=== PATIENT | female | born 1990 | race Caucasian/White ===

== ENCOUNTER → 2017-03-17 | Outpatient (CLI) | payer MEDICAID ==
--- NOTE | 2017-03-17 15:29 | Diagnostic Imaging Report ---
PROCEDURE: CT urinary tract, rule out kidney stone. TECHNIQUE: Multiple contiguous axial images were obtained through the abdomen and pelvis without the use of intravenous contrast. INDICATION: Right flank pain. FINDINGS: The lung bases appear clear. The liver, the gallbladder, the spleen, the pancreas, and the adrenal glands appear unremarkable for an unenhanced exam. The kidneys demonstrate no hydronephrosis. There are bilateral nonobstructive stones up to 3 mm in the upper pole of the right kidney and a few 1-2 mm nonobstructive stones in the left kidney seen. There is a low-density lesion poorly identified on this unenhanced exam in the lower pole of the left kidney measuring roughly 8 mm. This could be related to a cystic lesion. This can be better evaluated with renal ultrasound. No hydronephrosis. No ureteric or bladder stones. The uterus is slightly enlarged. There is a tiny amount of free fluid seen in the pelvis. Suggestion of sutures near the base of the cecum is presumably related to prior appendectomy. Tiny fat-containing umbilical hernia is seen. The abdominal aorta is normal in caliber. No para-aortic significantly enlarged lymph node is seen. The osseous structures appear grossly unremarkable. IMPRESSION: 1. Bilateral nonobstructive kidney stones with no hydronephrosis. 2. Poorly defined hypodense lesion in the lower pole of the left kidney on this unenhanced exam. Further evaluation with renal ultrasound is recommended. 3. Tiny fat-containing umbilical hernia. Dictated by: Dictated on workstation # [id number]
== END ==
LOC: RAD 14:35
PROVIDERS: ATTEND Nurse Practitioner Family
DX: N20.0 Calculus of kidney (principal)
CPT/HCPCS: 74176

== ENCOUNTER 2017-03-21 23:55 | Emergency (ER) | payer MEDICAID ==
[~2017-03-21] VITALS: Ht 167.6 cm; Wt 82.6 kg
--- OUTSIDE RECORDS SUMMARY | 2017-03-22 00:04 | XMS REPORT ---
Author Author NOREEN MANCIA [facility] Address [address] [place] [address] Care Team Providers Care Field Handyman Name Role Phone NOREEN MANCIA Unavailable PROBLEMS Unknown Problems ALLERGIES No Known Allergies SOCIAL HISTORY No smoking Hx information available PLAN OF CARE VITAL SIGNS MEDICATIONS No Known Medications RESULTS No Results PROCEDURES No Known procedures IMMUNIZATIONS No Known Immunizations
--- OUTSIDE RECORDS SUMMARY | 2017-03-22 00:04 | XMS REPORT ---
Author Author TALI MORGAN Organization [employer] Address Unknown Phone Unavailable Care Team Providers Care Family Law Legal Assistant Name Role Phone TALI MORGAN CP Unavailable Allergies, Adverse Reactions, Alerts Substance Reaction Event Type Amoxicillin hives Drug Allergy Problems Problem Type Condition Code Onset Dates Condition Status Assessment High ankle sprain of left lower extremity, initial encounter S93.432A Active Assessment Left ankle injury, initial encounter S99.912A Active Medications No Known Medications Procedures Procedure Coding System Code Date Office Visit, Est Pt., Level 3 CPT-4 63919 Jan 15, 2016 X-RAY EXAM OF ANKLE CPT-4 18048 Jan 15, 2016 Vital Signs Date/Time: Jan 15, 2016 Cardiac Monitoring Heart Rate 100 bpm Weight 170 lbs Height 66 in BMI 27.44 Index Blood Pressure Diastolic 90 mmHg Blood Pressure Systolic 132 mmHg Results No Known Results Summary Purpose [employer] Submission
[2017-03-22 00:17] LABS: BILIRUBIN,URINE NEGATIVE (NEGATIVE); KETONES,URINE NEGATIVE (NEGATIVE); LEUKOCYTE ESTERASE ,URINE NEGATIVE (NEGATIVE); NITRITE,URINE NEGATIVE (NEGATIVE); PH,URINE 6 (5-9); PROTEIN,URINE NEGATIVE (NEGATIVE); UROBILINOGEN,URINE NORMAL (NORMAL)
--- NOTE | 2017-03-22 00:25 | ED Back Pain ---
General Chief Complaint: Back Problems Stated Complaint: RT SIDE PAIN,POSS KIDNEY STONE Nursing Triage Note: Pt c/o right side flank pain, dx with kidney stones and "spot" on kidney on Fri. Nursing Sepsis Screen: No Definite Risk Source of Information: Patient Exam Limitations: No Limitations History of Present Illness Time Seen by Provider: 00:14 Initial Comments Patient resists ER by private conveyance with a chief complaint that for approximately one week now she's been experiencing some pain in her right flank and she went to [facility] where she was sent up to [facility] for a [facility] scan. The CT scan was done Friday, 5 days ago and the report was read out to her the next day saying she had kidney stones on both sides but she's only ever had pain on her right side. She's never had kidney stones passed before. She been drinking water and using 400 mg ibuprofen to 3 times a day with very modest pain relief. She has no dysuria, discharge, fevers, rash, nausea, vomiting. She says the pain is worse when she is moving or for about an hour or 2 after she eats. She's had her appendix out in the past. Allergies and Home Medications Allergies Coded Allergies: amoxicillin (Verified Allergy, Mild, 03/22/17) Constitutional: No chills, No fever, No malaise EENTM: No ear pain, No eye pain Respiratory: No cough, No short of breath Cardiovascular: No chest pain, No edema Gastrointestinal: abdominal pain (right flank), No constipation, No diarrhea, No nausea, No vomiting Genitourinary: No discharge, No dysuria : No LMP: Mar 19, 2017 Control/STD Prophylaxis: None Musculoskeletal: see HPI, gout, joint pain Skin: No pruritus, No rash Psychiatric/Neurological: Denies Headache, Denies Numbness, Denies Paresthesia Past Uhujqmj-Qqgzdz-Tcekhn Hx Patient Social History Alcohol Use: Denies Use Recreational Drug Use: No Smoking Status: Never a Smoker 2nd Hand Smoke Exposure: No Recent Foreign Travel: No Contact w/Someone Who Travel: No Recent Infectious Disease Expo: No Recent Hopitalizations: No Physical Abuse: No Sexual Abuse: No Mistreated: No Fear: No Immunizations Up To Date Tetanus Booster (TDap): Unknown Seasonal Allergies Seasonal Allergies: No Surgeries History of Surgeries: Yes Surgeries: Appendectomy, Section Respiratory History of Respiratory Disorde: No Cardiovascular History of Cardiac Disorders: No Neurological History of Neurological Disord: No Genitourinary History of Genitourinary Disor: No Gastrointestinal History of Gastrointestinal Di: No Musculoskeletal History of Musculoskeletal Dis: No Endocrine History of Endocrine Disorders: No HEENT History of HEENT Disorders: No Cancer History of Cancer: No Psychosocial History of Psychiatric Problem: No Suicide Risk Score: 1 Integumentary History of Skin or Integumenta: No Blood Transfusions History of Blood Disorders: No Adverse Reaction to a Blood Tr: No Physical Exam Vital Signs Vital Sign - Last 12Hours 03/22/17 00:00 Temp 98.0 Pulse 102 Resp 18 B/P (MAP) 181/125 (143) Pulse Ox 99 O2 Delivery Room Air Capillary Refill : Less Than 3 Seconds General Appearance: WD/WN, Mild Distress HEENT: PERRL/EOMI, Pharynx Normal Neck: Full Range of Motion, Non Tender, Supple Cardiovascular: Regular Rate, Rhythm, No Edema, No Gallop Respiratory: Chest Non Tender, Lungs Clear, Normal Breath Sounds Peripheral Pulses: 2+ Radial Pulses (R), 2+ Radial Pulses (L) Gastrointestinal: Normal Bowel Sounds, Non Tender, Soft Back: Normal Inspection, No Vertebral Tenderness, CVA Tenderness (R) Extremity: Normal Capillary Refill, Normal Inspection, No Pedal Edema Neurologic/Psychiatric: Alert, Oriented x3, Normal Mood/Affect Skin: Normal Color, Warm/Dry Progress/Results/Core Measures Results/Orders Lab Results Laboratory Tests Test 03/22/17 00:05 Range/Units Urine Color YELLOW Urine Clarity CLEAR Urine pH 6 5-9 Urine Specific [place] 1.020 1.016-1.022 Urine Protein NEGATIVE NEGATIVE Urine Glucose (UA) NEGATIVE NEGATIVE Urine Ketones NEGATIVE NEGATIVE Urine Nitrite NEGATIVE NEGATIVE Urine Bilirubin NEGATIVE NEGATIVE Urine Urobilinogen NORMAL NORMAL MG/DL Urine Leukocyte Esterase NEGATIVE NEGATIVE Urine RBC (Auto) 4+ H NEGATIVE Urine RBC 0-2 /HPF Urine WBC NONE /HPF Urine Squamous Epithelial Cells 5-10 /HPF Urine Crystals NONE /LPF Urine Bacteria NEGATIVE /HPF Urine Casts NONE /LPF Urine Mucus NEGATIVE /LPF Urine Culture Indicated NO Urine Test NEGATIVE NEGATIVE My Orders Orders - LOBO NERI Ua Culture If Indicated (03/22/17 00:00) Ketorolac Injection (Toradol Injection) (03/22/17 00:30) Saline Lock/Iv-Start (03/22/17 00:26) Ct Abd/Pelvis Wo(Kidney Stone) (03/22/17 00:26) Hcg,Qualitative Urine (03/22/17 00:27) Medications Given in ED Current Medications Medications Dose Ordered Sig/Vance Route Start Time Stop Time Status Last Admin Dose Admin Ketorolac Tromethamine 10 mg ONCE ONCE IVP 03/22/17 00:30 03/22/17 00:31 DC 03/22/17 01:05 10 MG Vital Signs/I&O Vital Sign - Last 12Hours 03/22/17 00:00 Temp 98.0 Pulse 102 Resp 18 B/P (MAP) 181/125 (143) Pulse Ox 99 O2 Delivery Room Air Blood Pressure Mean: 143 Progress Note : Time: 00:26 Progress Note 5 days ago the patient had nonobstructing kidney stones in the kidneys however she still having significant pain so we'll give her some Toradol and repeat a CT scan to see if these don't moved into the ureter. Diagnostic Imaging Diagonstic Imaging: CT (03/17/17) Plain Films/CT/US/NM/MRI: abdomen, pelvis Comments NAME: EMIRKELL D [facility] REC#: [id number] PHYSICIAN: TALI MORGAN APRN CC: TALI MORGAN APRN; AMI SERRANO MD Page 2 of 2 RADIOLOGY REPORT VIA [facility]. [place], [place] CC: TALI MORGAN APRN; AMI SERRANO MD Page 1 of 2 RADIOLOGY REPORT NAME: EMIRKELL D [facility] REC#: [id number] PT STATUS: REG CLI : 1990 PHYSICIAN: TALI MORGAN APRN ADMIT DATE: 03/17/17/RAD Signed Date of Exam: 03/17/17 CT ABD/PELVIS WO(KIDNEY STONE) PROCEDURE: CT urinary tract, rule out kidney stone. TECHNIQUE: Multiple contiguous axial images were obtained through the abdomen and pelvis without the use of intravenous contrast. INDICATION: Right flank pain. FINDINGS: The lung bases appear clear. The liver, the gallbladder, the spleen, the pancreas, and the adrenal glands appear unremarkable for an unenhanced exam. The kidneys demonstrate no hydronephrosis. There are bilateral nonobstructive stones up to 3 mm in the upper pole of the right kidney and a few 1-2 mm nonobstructive stones in the left kidney seen. There is a low-density lesion poorly identified on this unenhanced exam in the lower pole of the left kidney measuring roughly 8 mm. This could be related to a cystic lesion. This can be better evaluated with renal ultrasound. No hydronephrosis. No ureteric or bladder stones. The uterus is slightly enlarged. There is a tiny amount of free fluid seen in the pelvis. Suggestion of sutures near the base of the cecum is presumably related to prior appendectomy. Tiny fat-containing umbilical hernia is seen. The abdominal aorta is normal in caliber. No para-aortic significantly enlarged lymph node is seen. The osseous structures appear grossly unremarkable. IMPRESSION: 1. Bilateral nonobstructive kidney stones with no hydronephrosis. 2. Poorly defined hypodense lesion in the lower pole of the left kidney on this unenhanced exam. Further evaluation with renal ultrasound is recommended. 3. Tiny fat-containing umbilical hernia. Dictated by: Dictated on workstation # [id number] Dict: 03/17/17 1514 Trans: 03/17/17 1728 Interpreted by: AMI SERRANO MD Electronically signed by: AMI SERRANO MD 03/17/17 1728 Reviewed: Reviewed/Discussed Diagonstic Imaging: CT Plain Films/CT/US/NM/MRI: abdomen, pelvis Comments Stat read: Distal right ureter not well seen. It to 7 cm right pelvic calcifications present on prior exam are favored to represent platelets. Punctate bilateral nonobstructing nephrolithiasis. No hydronephrosis. No other acute findings. Reviewed: Reviewed [place] Hawk Study, Reviewed by Me Departure Impression Impression: Primary Impression: Renal lithiasis Disposition: HOME, SELF-CARE Condition: Improved Departure-Patient Inst. Decision time for Depature: 01:52 Referrals: [facility] (PCP/Family) Primary Care Physician Patient Instructions: Kidney Stones (DC) Add. Discharge Instructions: Drink lots of water. If you did recently passed kidney stones is not unusual to have some residual pain or blood in the urine for 2-3 days afterwards. Heat wraps, Tylenol 1000 g every 8 hours and Motrin 800 mg every 8 hours as needed for pain. If this does not work you may use the hydrocodone for next day or 2. Please plan to follow-up to primary care physician to get the ultrasound of your kidney set up within the next couple weeks. All discharge instructions reviewed with patient and/or family. Voiced understanding. Scripts Hydrocodone/Acetaminophen (Hydrocodon -Acetaminophen 5-325) 1 Each Tablet 1 EACH PO Q6H Y for BREAKTHROUGH PAIN, #8 TAB 0 Refills Prov: LOBO NERI 03/22/17 Copy Copies To 1: NOREEN MANCIA DO LOBO NERI Mar 22, 2017 00:25
[2017-03-22] MEDS ORDERED: KETOROLAC 30 MG/ML VIAL IVP ONE (00:30)
[2017-03-22] MEDS ORDERED: HYDR-3812 PO (01:53)
[2017-03-22 01:58] VITALS: BP 142/70
--- NOTE | 2017-03-22 07:21 | Diagnostic Imaging Report ---
PROCEDURE: CT urinary tract, rule out kidney stone. TECHNIQUE: Multiple contiguous axial images were obtained through the abdomen and pelvis without the use of intravenous contrast. INDICATION: Right-sided flank pain. History of kidney stones The liver, gallbladder and bile ducts are normal. The spleen, pancreas and adrenals are normal. There are three 1-2 mm nonobstructing stones in the left kidney. There is one 2 mm nonobstructing stone in the right kidney. There is no hydronephrosis seen on either side. The ureters are not dilated. There are calcifications in the pelvis consistent with phleboliths and are stable compared to the 03/17/17 study. Bladder is normal. There is no pelvic mass. There is no acute bony abnormality. IMPRESSION: There are bilateral nonobstructing renal stones present with no acute abnormality seen and no significant change from 03/17/2017. Dictated by: Dictated on workstation # [id number]
== END 2017-03-22 01:55 | disposition home or self-care (01) ==
LOC: EDUNIT# 23:55 → ER 03-22
DX: N20.0 Calculus of kidney (principal); Z90.49 Acquired absence of other specified parts of digestive tract; Z87.59 Personal history of other complications of pregnancy, childbirth and the puerperium
CPT/HCPCS: 74176; 81000; 84703

== ENCOUNTER → 2017-03-26 | Outpatient (CLI) | payer MEDICAID ==
[~2017-03-26] MED LIST: HYDR-3812 PO
--- NOTE | 2017-03-26 11:37 | Diagnostic Imaging Report ---
EXAMINATION: Bilateral renal ultrasound. INDICATION: Left renal lesion. FINDINGS: The right kidney is 12.3, and the left kidney is 12.2 CM in length. No hydronephrosis or focal lesion seen. 1 cm simple appearing cyst in the left kidney seen. No solid mass is identified. The urinary bladder appears unremarkable. IMPRESSION: No hydronephrosis. Dictated by: Dictated on workstation # [id number]
== END ==
LOC: RAD 10:54
PROVIDERS: ATTEND Nurse Practitioner Family
DX: N28.89 Other specified disorders of kidney and ureter (principal)
CPT/HCPCS: 76770

== ENCOUNTER 2017-07-05 15:38 | Emergency (ER) | payer MEDICAID ==
[~2017-07-05] VITALS: Ht 167.6 cm; Wt 81.6 kg
[~2017-07-05 15:38] MED LIST changes: +ACHD5005 PO; -HYDR-3812 PO
[2017-07-05 16:17] LABS: BILIRUBIN,URINE NEGATIVE (NEGATIVE); CLARITY,URINE VERY CLOUDY; COLOR,URINE YELLOW; GLUCOSE, URINE (UA) NEGATIVE (NEGATIVE); KETONES,URINE NEGATIVE (NEGATIVE); LEUKOCYTE ESTERASE ,URINE NEGATIVE (NEGATIVE); NITRITE,URINE NEGATIVE (NEGATIVE); PH,URINE 8 (5-9); PROTEIN,URINE NEGATIVE (NEGATIVE); UROBILINOGEN,URINE NORMAL (NORMAL)
[2017-07-05 16:17] LABS: BASOPHILS % (AUTO) 1 % (0-10); EOSINOPHILS # (AUTO) 0.2 10^3/uL (0.0-0.3); EOSINOPHILS % (AUTO) 3 % (0-10); HEMATOCRIT 39 % (35-52); HEMOGLOBIN 13.8 G/DL (11.5-16.0); LYMPHOCYTES # (AUTO) 2.3 X 10^3 (1.0-4.0); LYMPHOCYTES % (AUTO) 36 % (12-44); MEAN CORPUSCULAR HEMOGLOBIN 30 PG (25-34); MEAN CORPUSCULAR HGB CONC 36 G/DL (32-36); MEAN CORPUSCULAR VOLUME 83 FL (80-99); MEAN PLATELET VOLUME 10.7 FL (7.4-10.4); MONOCYTES # (AUTO) 0.6 X 10^3 (0.0-1.0); MONOCYTES % (AUTO) 9 % (0-12); NEUTROPHILS # (AUTO) 3.3 X 10^3 (1.8-7.8); NEUTROPHILS % (AUTO) 51 % (42-75); PLATELET COUNT 326 10^3/uL (130-400); RED BLOOD COUNT 4.63 10^6/uL (4.35-5.85); RED CELL DISTRIBUTION WIDTH 13.7 % (10.0-14.5); WHITE BLOOD COUNT 6.5 10^3/uL (4.3-11.0)
[2017-07-05 16:24] LABS: BACTERIA,URINE TRACE /HPF; RBC,URINE 0-2 /HPF; SQUAMOUS EPITHELIAL CELL,UR RARE /HPF
[2017-07-05 16:25] LABS: AMORPHOUS SEDIMENT,UR LARGE AMOR PHOSPHATE /LPF
[2017-07-05 16:30] LABS: ALANINE AMINOTRANSFERASE 30 U/L (0-55); ALBUMIN 4.5 GM/DL (3.2-4.5); ALKALINE PHOSPHATASE 125 U/L (40-136); BILIRUBIN,TOTAL 0.4 MG/DL (0.1-1.0); BUN/CREATININE RATIO 14; CALCIUM 9.3 MG/DL (8.5-10.1); CARBON DIOXIDE 23 MMOL/L (21-32); CHLORIDE 107 MMOL/L (98-107); CREATININE SERUM 0.65 MG/DL (0.60-1.30); GFR ESTIMATED > 60; GLUCOSE 104 MG/DL (70-105); POTASSIUM 3.6 MMOL/L (3.6-5.0); SODIUM 138 MMOL/L (135-145); TOTAL PROTEIN 7.3 GM/DL (6.4-8.2)
[2017-07-05] MEDS ORDERED: KETOROLAC 60 MG/2 ML VIAL IM STA (16:59)
[2017-07-05] MEDS ORDERED: MECLIZINE 25 MG (ANTIVERT) TAB PO ONE (17:00)
[2017-07-05] MEDS ORDERED: KETOROLAC 30 MG/ML VIAL IVP STA (17:27)
--- NOTE | 2017-07-05 17:48 | Diagnostic Imaging Report ---
PROCEDURE: US gallbladder. TECHNIQUE: Multiple real-time grayscale images were obtained over the right upper quadrant in various projections. INDICATION: Right-sided abdominal pain. COMPARISON: None. FINDINGS: Normal echogenicity of the liver with no focal mass or cyst. No intrahepatic biliary ductal dilatation. Normal appearing gallbladder. Gallbladder wall measures 0.2 cm in thickness. No pericholecystic fluid. Negative sonographic Bell sign. The common bile duct measures 0.4 cm. The pancreas is not documented. The right kidney measures 12.8 cm. No right renal mass, cyst or hydronephrosis. No free fluid in the visualized abdomen. IMPRESSION: Normal right upper quadrant ultrasound. Dictated by: Dictated on workstation # [id number]
--- NOTE | 2017-07-05 18:06 | ED Abdominal Pain ---
General Chief Complaint: Abdominal/GI Problems Stated Complaint: PAIN IN RIGHT SIDE/CRAMPS Nursing Triage Note: PT REPORTS LOWER PELVIC CRAMPING AND VAGINAL BLEEDING THAT IT WORSE THAN HER USUAL MENSTRAUL CYCLE. PT REPORTS SHE LAST TOOK 400 MG IBUPROFEN AT 1200 TODAY. Sepsis Screen: No Definite Risk History of Present Illness Date Seen by Provider: Jul 05, 2017 Time Seen by Provider: 16:00 Initial Comments 27-year-old female reports for right upper quadrant pain and vaginal bleeding with cramps. She also complains of vertigo. She reports that this is the sixth day of her menstrual cycle, it has been a heavier cycle been normal for her. She denies any history of STDs. She does report over the last 2-3 hours the bleeding has decreased to a scant amount. Timing/Duration: 4-5 Days Severity/Quality: Mild Location: RUQ, Suprapubic Radiation: No Radiation Activities at Onset: None Modifying Factors: Improves With Resting Associated Symptoms: Denies Symptoms Allergies and Home Medications Allergies Coded Allergies: amoxicillin (Verified Allergy, Mild, 03/22/17) Home Medications Hydrocodone Bit/Acetaminophen 1 Each Tablet, 1 EACH PO Q6H PRN for BREAKTHROUGH PAIN Prescribed by: LOBO NERI on 03/22/17 0153 Patient Home Medication List Home Medication List Reviewed: Yes Review of Systems Constitutional: no symptoms reported, see HPI Gastrointestinal: See HPI, Abdominal Pain, Nausea Genitourinary: No Symptoms Reported, See HPI All Other Systems Reviewed Negative Unless Noted: Yes Past Uxghepl-Qohtzp-Lmourh Hx Patient Social History Alcohol Use: Rarely Uses Recreational Drug Use: No Smoking Status: Never a Smoker 2nd Hand Smoke Exposure: No Recent Foreign Travel: No Contact w/Someone Who Travel: No Recent Infectious Disease Expo: No Recent Hopitalizations: No Physical Abuse: No Sexual Abuse: No Mistreated: No Fear: No Immunizations Up To Date Tetanus Booster (TDap): Unknown Seasonal Allergies Seasonal Allergies: No Surgeries History of Surgeries: Yes Surgeries: Appendectomy, Section, Tubal Ligation Respiratory History of Respiratory Disorde: No Cardiovascular History of Cardiac Disorders: No Neurological History of Neurological Disord: No Reproductive System : No Genitourinary History of Genitourinary Disor: No Gastrointestinal History of Gastrointestinal Di: No Musculoskeletal History of Musculoskeletal Dis: No Endocrine History of Endocrine Disorders: No HEENT History of HEENT Disorders: No Cancer History of Cancer: No Psychosocial History of Psychiatric Problem: No Suicide Risk Score: 0 Integumentary History of Skin or Integumenta: No Blood Transfusions History of Blood Disorders: No Adverse Reaction to a Blood Tr: No Reviewed Nursing Assessment Reviewed/Agree w Nursing PMH: Yes Physical Exam Vital Signs VS - Last 72 Hours, by Label 07/05/17 07/05/17 16:01 18:35 Temp 97.8 Pulse 88 84 Resp 18 18 B/P (MAP) 154/107 (123) 148/98 Pulse Ox 97 99 O2 Delivery Room Air Capillary Refill : Less Than 3 Seconds General Appearance: WD/WN, no apparent distress HEENT: PERRL/EOMI, normal ENT inspection, TMs normal, pharynx normal, other ( Mucosa pink and moist) Neck: non-tender, full range of motion, supple, normal inspection Respiratory: chest non-tender, lungs clear, normal breath sounds Cardiovascular: normal peripheral pulses, regular rate, rhythm, no edema Gastrointestinal: normal bowel sounds, soft, No distended, No guarding, No rebound, tenderness (Right upper quadrant, positive Bell's sign.), No hernia, No mass Extremities: normal range of motion, non-tender, normal inspection, normal capillary refill Back: normal inspection, no CVA tenderness, no vertebral tenderness Neurologic/Psychiatric: no motor/sensory deficits, alert, normal mood/affect, oriented x 3 Progress/Results/Core Measures Results/Orders Lab Results Laboratory Tests Test 07/05/17 15:57 07/05/17 16:10 Range/Units White Blood Count 6.5 4.3-11.0 10^3/uL Red Blood Count 4.63 4.35-5.85 10^6/uL Hemoglobin 13.8 11.5-16.0 G/DL Hematocrit 39 35-52 % Mean Corpuscular Volume 83 80-99 FL Mean Corpuscular Hemoglobin 30 25-34 PG Mean Corpuscular Hemoglobin Concent 36 32-36 G/DL Red Cell Distribution Width 13.7 10.0-14.5 % Platelet Count 326 130-400 10^3/uL Mean Platelet Volume 10.7 H 7.4-10.4 FL Neutrophils (%) (Auto) 51 42-75 % Lymphocytes (%) (Auto) 36 12-44 % Monocytes (%) (Auto) 9 0-12 % Eosinophils (%) (Auto) 3 0-10 % Basophils (%) (Auto) 1 0-10 % Neutrophils # (Auto) 3.3 1.8-7.8 X 10^3 Lymphocytes # (Auto) 2.3 1.0-4.0 X 10^3 Monocytes # (Auto) 0.6 0.0-1.0 X 10^3 Eosinophils # (Auto) 0.2 0.0-0.3 10^3/uL Basophils # (Auto) 0.0 0.0-0.1 10^3/uL Sodium Level 138 135-145 MMOL/L Potassium Level 3.6 3.6-5.0 MMOL/L Chloride Level 107 98-107 MMOL/L Carbon Dioxide Level 23 21-32 MMOL/L Anion Gap 8 5-14 MMOL/L Blood Urea Nitrogen 9 7-18 MG/DL Creatinine 0.65 0.60-1.30 MG/DL Estimat Glomerular Filtration Rate > 60 BUN/Creatinine Ratio 14 Glucose Level 104 70-105 MG/DL Calcium Level 9.3 8.5-10.1 MG/DL Total Bilirubin 0.4 0.1-1.0 MG/DL Aspartate Amino Transf (AST/SGOT) 26 5-34 U/L Alanine Aminotransferase (ALT/SGPT) 30 0-55 U/L Alkaline Phosphatase 125 40-136 U/L Total Protein 7.3 6.4-8.2 GM/DL Albumin 4.5 3.2-4.5 GM/DL Urine Color YELLOW Urine Clarity VERY CLOUDY H Urine pH 8 5-9 Urine Specific [place] 1.010 L 1.016-1.022 Urine Protein NEGATIVE NEGATIVE Urine Glucose (UA) NEGATIVE NEGATIVE Urine Ketones NEGATIVE NEGATIVE Urine Nitrite NEGATIVE NEGATIVE Urine Bilirubin NEGATIVE NEGATIVE Urine Urobilinogen NORMAL NORMAL MG/DL Urine Leukocyte Esterase NEGATIVE NEGATIVE Urine RBC (Auto) 1+ H NEGATIVE Urine RBC 0-2 /HPF Urine WBC NONE /HPF Urine Squamous Epithelial Cells RARE /HPF Urine Crystals NONE /LPF Urine Amorphous Sediment LARGE SHERI PHOSPHATE H /LPF Urine Bacteria TRACE /HPF Urine Casts NONE /LPF Urine Mucus NEGATIVE /LPF Urine Culture Indicated NO My Orders Orders - CATRACHITO FINK Cbc With Automated Diff (07/05/17 16:10) Comprehensive Metabolic Panel (07/05/17 16:10) Ua Culture If Indicated (07/05/17 16:10) Urine Bedside (07/05/17 16:10) Us Gallbladder [id number] (07/05/17 16:55) Ketorolac Injection (Toradol Injection) (07/05/17 16:59) Meclizine Tablet (Antivert Tablet) (07/05/17 17:00) Ketorolac Injection (Toradol Injection) (07/05/17 17:27) Medications Given in ED Vital Signs/I&O Vital Sign - Last 12Hours 07/05/17 07/05/17 16:01 18:35 Temp 97.8 Pulse 88 84 Resp 18 18 B/P (MAP) 154/107 (123) 148/98 Pulse Ox 97 99 O2 Delivery Room Air Blood Pressure Mean: 123 Point of Care Testing Urine -Bedside: Negative Progress Note : Time: 16:00 Progress Note Initial evaluation completed, recommended labs and Toradol 30 mg IV and meclizine 25 mg by mouth. 1645 we'll obtain ultrasound of the gallbladder. 1715 results of lab and ultrasound discussed with the patient. 1730 patient reports pain has improved. Discharge planning and return precautions reviewed with patient, all questions answered. Diagnostic Imaging Diagonstic Imaging: Ultrasound Plain Films/CT/US/NM/MRI: abdomen Comments NAME: [facility]LL [facility] REC#: [id number] PT STATUS: REG ER : 1990 PHYSICIAN: CATRACHITO FINK ADMIT DATE: 07/05/17/ER Draft Date of Exam:07/05/17 US GALLBLADDER [id number] PROCEDURE: US gallbladder. TECHNIQUE: Multiple real-time grayscale images were obtained over the right upper quadrant in various projections. INDICATION: Right-sided abdominal pain. COMPARISON: None. FINDINGS: Normal echogenicity of the liver with no focal mass or cyst. No intrahepatic biliary ductal dilatation. Normal appearing gallbladder. Gallbladder wall measures 0.2 cm in thickness. No pericholecystic fluid. Negative sonographic Bell sign. The common bile duct measures 0.4 cm. The pancreas is not documented. The right kidney measures 12.8 cm. No right renal mass, cyst or hydronephrosis. No free fluid in the visualized abdomen. IMPRESSION: Normal right upper quadrant ultrasound. Dictated on workstation # [id number] Dict: 07/05/17 1742 Trans: 07/05/17 1748 [facility] [id number] Interpreted by: FINA WHITE MD Electronically signed by: Departure Impression Impression: Primary Impression: Menorrhagia Qualified Codes: N92.0 - Excessive and frequent menstruation with regular cycle Disposition: HOME, SELF-CARE Condition: Stable Departure-Patient Inst. Decision time for Depature: 17:15 Referrals: NOREEN MANCIA DO (PCP) Primary Care Physician TALI MORGAN APRN (Family) Primary Care Physician Patient Instructions: Heavy Periods (DC), Menstrual Cramps (DC) Add. Discharge Instructions: Increase water intake. Alternate ibuprofen 600 mg and Tylenol 650 mg every 4 hours for pain or fever. Follow-up with Tali Casey APRN in 2-3 days if symptoms are not improving or worsen. Return to emergency department if symptoms worsen, fever greater than 101, or new problems. All discharge instructions reviewed with patient and/or family. Voiced understanding. Work/School Note: Work Release Form Date Seen in the Emergency Department: Jul 05, 2017 Return to Work: Jul 07, 2017 Restrictions: No Restrictions Copy Copies To 1: ADRIANNA LIU MD, AMY ARNP Jul 05, 2017 18:05
[2017-07-05 18:35] VITALS: BP 148/98
--- OUTSIDE RECORDS SUMMARY | 2017-07-06 04:39 | XMS REPORT ---
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 253205209 Problem Missed period N92.6 Active 92296089 Problem Left renal mass N28.89 Active 135767061 Problem Renal calculus, bilateral N20.0 Active 47322727 ALLERGIES Substance Reaction Event Type Date Status Amoxicillin hives Drug Allergy Oct, Active ENCOUNTERS Encounter Location Date Diagnosis [facility] [id number] [place] [address] 98220- 4600 Apr, [facility] [id number] [place] [address] 47027- 0000 Apr, [facility] [id number] [place] [address] 05013- 5906 Mar, [facility] [id number] [place] [address] 20785- 8425 Mar, 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 [facility] [id number] [place] [address] 69512- 8663 Mar, [facility] [id number] [place] [address] 49442 [address]3970 Mar, Abdominal pain R10.9 ; Missed period N92.6 and Right flank pain R10.9 [facility] [id number] [place] [address] 95517 -1451 Oct, Cellulitis of neck L03.221 [facility] [id number] [place] [address] 10 Jan, 2016 Left ankle injury, initial encounter S99.912A and High ankle sprain of left lower extremity, initial encounter S93.432A [facility] [address] [facility] [id number] [place] [address] 28 Dec, 2015 Unprotected sexual intercourse Z72.51 [facility] [address] [facility] [id number] [address] Dec, IMMUNIZATIONS No Known Immunizations SOCIAL HISTORY Never Assessed REASON FOR VISIT bump under chin started about 3 days ago JStrasserRN PLAN OF CARE Activity Details Follow Up prn Reason: VITAL SIGNS Height 66 in 2016-10-10 Weight 177.2 lbs 2016-10-10 Temperature 97.9 degrees Fahrenheit 2016-10-10 Heart Rate 78 bpm 2016-10-10 Respiratory Rate 20 2016-10-10 BMI 28.60 kg/m2 2016-10-10 Blood pressure systolic 146 mmHg 2016-10-10 Blood pressure diastolic 98 mmHg 2016-10-10 MEDICATIONS Medication Instructions Dosage Frequency Start Date End Date Duration Status Clindamycin HCl 300 MG Orally 2 times a day 1 capsule 12h Oct, Oct, 10 days Active RESULTS No Results PROCEDURES No Known procedures INSTRUCTIONS MEDICATIONS ADMINISTERED No Known Medications MEDICAL (GENERAL) HISTORY Type Description Date Surgical History section [id number] Surgical History tubal ligation 09/2015 Hospitalization History Post C-Sections
== END 2017-07-05 18:34 | disposition home or self-care (01) ==
LOC: EDUNIT# 15:38 → ER 15:39
DX: N92.0 Excessive and frequent menstruation with regular cycle (principal); Z87.59 Personal history of other complications of pregnancy, childbirth and the puerperium; Z90.49 Acquired absence of other specified parts of digestive tract; Z98.51 Tubal ligation status; Z88.1 Allergy status to other antibiotic agents
CPT/HCPCS: 36415; 76705; 80053; 81000; 84703; 85025; 96374

== ENCOUNTER → 2018-01-28 | Outpatient (CLI) | payer MEDICAID ==
--- NOTE | 2018-01-28 20:28 | Diagnostic Imaging Report ---
INDICATION: Palpable lump in the right breast. FINDINGS: Sonographic interrogation of the area of palpable abnormality in the right breast. This corresponds to 8 o'clock location 4 cm from the nipple. There is a macrolobulated hypoechoic solid-appearing mass at this location measuring 2.5 x 2.1 x 2.4 cm. Minimal internal vascularity is present. No shadowing is seen. Two additional hypoechoic nodules are also present in the right breast. The nodule at the 11 o'clock location 3 cm from the nipple measures 1.6 x 0.6 x 1.5 cm. The nodule at the 12 o'clock location 2 cm from the nipple measures 1.1 x 0.8 x 1.1 cm. Both of these also appear solid. 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 No other masses are seen. The right axilla is unremarkable. IMPRESSION: BI-RADS 4 Multiple solid masses in the right breast, as described, largest corresponds to the palpable abnormality at the 8 o'clock location 4 cm from the nipple. Features are most suggestive of fibroadenomas; however after discussion with the patient, it was decided to undergo ultrasound-guided core biopsy of the dominant mass at the 8 o'clock location to assure benignity. ACR BI-RADS Category 4: Suspicious abnormality. Dictated by: Dictated on workstation # [id number]
== END ==
LOC: RAD 08:10
PROVIDERS: ATTEND Nurse Practitioner Family
DX: N63.13 Unspecified lump in the right breast, lower outer quadrant (principal); N63.11 Unspecified lump in the right breast, upper outer quadrant
CPT/HCPCS: 76641

== ENCOUNTER → 2018-02-09 | Outpatient (CLI) | payer MEDICAID ==
[~2018-02-09] VITALS: Ht 165.1 cm; Wt 86.2 kg
[~2018-02-09] MED LIST changes: +LIDOCAINE 1% INJ 20 ML 20 ML VIAL INJ ONE
--- NOTE | 2018-02-09 18:17 | Diagnostic Imaging Report ---
INDICATION: Right breast mass. PROCEDURE: The patient presents for ultrasound guided biopsy. DESCRIPTION OF PROCEDURE: The patient was brought to the procedure room and placed on the table in supine position. Ultrasound imaging over the right breast was performed to evaluate an appropriate entry site. The right breast was prepped and draped in the usual sterile fashion. A small amount of 1% lidocaine was utilized for local anesthesia. A 14-gauge needle was advanced into the lobulated hypoechoic mass at the 8 o'clock location of the right breast 5 cm from the nipple. A total of 4 core biopsies were obtained. The needle was withdrawn. A localizing clip was then deployed. Hemostasis was obtained using manual compression. IMPRESSION: Successful ultrasound-guided core biopsy of the lobulated mass at the 8 o'clock location of the right breast, 5 cm from the nipple. Pathology results are currently pending. Dictated by: Dictated on workstation # [id number]
== END ==
LOC: RAD 11:50
PROVIDERS: ATTEND Nurse Practitioner Family
DX: D24.1 Benign neoplasm of right breast (principal); N63.13 Unspecified lump in the right breast, lower outer quadrant
CPT/HCPCS: 19083; 88305

== ENCOUNTER 2018-03-02 12:51 | Emergency (ER) | payer MEDICAID ==
[~2018-03-02] VITALS: Ht 167.6 cm; Wt 86.2 kg
[~2018-03-02 12:51] MED LIST changes: -LIDOCAINE 1% INJ 20 ML 20 ML VIAL INJ ONE
--- OUTSIDE RECORDS SUMMARY | 2018-03-02 12:55 | XMS REPORT ---
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 465809082 Problem Missed period N92.6 Active 82053645 Problem Left renal mass N28.89 Active 718391718 Problem Renal calculus, bilateral N20.0 Active 75721579 ALLERGIES Substance Reaction Event Type Date Status Amoxicillin hives Drug Allergy Jan, Active ENCOUNTERS Encounter Location Date Diagnosis [place] [id number] [place] [address] 69759- 6819 Jan, Breast lump in lower inner quadrant N63.0 [place] [id number] [place] [address] 89382- 9778 Jan, Well woman exam with routine gynecological exam Z01.419 ; Screening for STD (sexually transmitted disease) Z11.3 ; Breast lump in lower inner quadrant N63.0 and Brittney vaginitis B37.3 [place] [address] [place] [address] 45997- 1993 Apr, [place] [id number] [place] [address] 68525- 7155 Apr, [place] [id number] [place] [address] 53395- 8604 Mar, [place] [id number] [place] [address] 91211- 7011 Mar, 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 [place] [id number] [place] [address] 930010- 5212 12 Mar, 2017 [facility] [address] [id number], [place] [address] 11 Mar, 2017 Abdominal pain R10.9 ; Missed period N92.6 and Right flank pain R10.9 [facility] [id number], [place] [address] 06 Oct, 2016 Cellulitis of neck L03.221 [facility] [address] [place] [address] 60543 -9868 10 Jan, 2016 Left ankle injury, initial encounter S99.912A and High ankle sprain of left lower extremity, initial encounter S93.432A [place] [address], [place] [address] 28 Dec, 2015 Unprotected sexual intercourse Z72.51 [place] [address] [place] [address] 02341- 7114 21 Dec, 2015 IMMUNIZATIONS No Known Immunizations SOCIAL HISTORY Never Assessed REASON FOR VISIT Well Woman Exam Shante Whitlock MA PLAN OF CARE Activity Details Follow Up 1 Year or pending results Reason:WWE Pending Test GC/CHLAM PROBE (STATE) Pending Test PAP REFLEX TO HPV IF ASCUS VITAL SIGNS Height 66 in 2018-01-06 Weight 187.5 lbs 2018-01-06 Temperature 97.3 degrees Fahrenheit 2018-01-06 Heart Rate 80 bpm 2018-01-06 Respiratory Rate 20 2018-01-06 BMI 30.26 kg/m2 2018-01-06 Blood pressure systolic 128 mmHg 2018-01-06 Blood pressure diastolic 74 mmHg 2018-01-06 MEDICATIONS Medication Instructions Dosage Frequency Start Date End Date Duration Status Diflucan 150 MG Orally one time 1 tablet Jan, 3 Jan, 2018 1 dose Active Midol Active RESULTS No Results PROCEDURES Procedure Date Ordered Result Body Site SPECIMEN HANDLING Jan 06, 2018 Bacterial Vaginosis In House Jan 06, 2018 No Charge Jan 06, 2018 LAB NOT BILLED BY [facility] Jan 06, 2018 INSTRUCTIONS MEDICATIONS ADMINISTERED No Known Medications MEDICAL (GENERAL) HISTORY Type Description Date Surgical History section Surgical History tubal ligation 09/2015 Hospitalization History Post C-Sections
--- OUTSIDE RECORDS SUMMARY | 2018-03-02 12:55 | XMS REPORT ---
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 329728202 Problem Missed period N92.6 Active 59101197 Problem Left renal mass N28.89 Active 002285709 Problem Renal calculus, bilateral N20.0 Active 17245709 ALLERGIES No Information ENCOUNTERS Encounter Location Date Diagnosis [facility] [id number] [place] [address] 65450- 7410 Apr, [facility] [id number] [place] [address] 16723- 3530 Apr, [facility] [address] 58104- [address]237 Mar, [facility] [id number] [place] [address] 00288- 1753 Mar, 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 [facility] [id number] [place] [address] 61001- 4934 Mar, [facility] [id number] [place] [address] 47940 -7132 11 Mar, 2017 Abdominal pain R10.9 ; Missed period N92.6 and Right flank pain R10.9 [facility] [id number] [place] [address] 36452 -4752 06 Oct, 2016 Cellulitis of neck L03.221 [facility] [id number] [place] [address] 54046 -5078 Jan, Left ankle injury, initial encounter S99.912A and High ankle sprain of left lower extremity, initial encounter S93.432A [facility] [address] [facility] [id number] [address] Dec, Unprotected sexual intercourse Z72.51 [facility] [address] [facility] [id number] [place] [address] Dec, IMMUNIZATIONS No Known Immunizations SOCIAL HISTORY Never Assessed REASON FOR VISIT Retro PA for CT Scan And & Pelvis (Stone Protocol) PLAN OF CARE VITAL SIGNS MEDICATIONS Unknown Medications RESULTS No Results PROCEDURES No Known procedures INSTRUCTIONS MEDICATIONS ADMINISTERED No Known Medications MEDICAL (GENERAL) HISTORY Type Description Date Surgical History section [id number] Surgical History tubal ligation 09/2015 Hospitalization History Post C-Sections
--- OUTSIDE RECORDS SUMMARY | 2018-03-02 12:55 | XMS REPORT ---
Author Author JIM VALDES Organization 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 689760508 Problem Missed period N92.6 Active 58734146 Problem Left renal mass N28.89 Active 429043882 Problem Renal calculus, bilateral N20.0 Active 36206288 ALLERGIES No Information ENCOUNTERS Encounter Location Date Diagnosis [place] [id number] [place] [address] 16634- 5287 Jan, Breast lump in lower inner quadrant N63.0 [place] [id number] [place] [address] 48660- 4736 Jan, Breast lump in lower inner quadrant N63.0 [place] [id number] [place] [address] 49447- 9342 Jan, Well woman exam with routine gynecological exam Z01.419 ; Screening for STD (sexually transmitted disease) Z11.3 ; Breast lump in lower inner quadrant N63.0 and Brittney vaginitis B37.3 [place] [id number] [place] [address] 16768- 6890 Apr, [place] [id number] [place] [address] 62613- 5679 Apr, [place] [id number] [place] [address] 45975- 5022 Mar, [place] [id number] [place] [address] 95522- 1426 Mar, 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 [address] [address] Mar, [facility] [place] [id number] [place] [address] 85452 -0913 Mar, Abdominal pain R10.9 ; Missed period N92.6 and Right flank pain R10.9 [facility] [id number] [place] [address] 75528 -7044 Oct, Cellulitis of neck L03.221 [facility] [place] [place] [address] 77399 -3422 10 Jan, 2016 Left ankle injury, initial encounter S99.912A and High ankle sprain of left lower extremity, initial encounter S93.432A [place] [address] [address] Dec, Unprotected sexual intercourse Z72.51 [place] [id number] [place] [address] 74987- 6778 Dec, IMMUNIZATIONS No Known Immunizations SOCIAL HISTORY Never Assessed REASON FOR VISIT Biopsy order PLAN OF CARE VITAL SIGNS MEDICATIONS Unknown Medications RESULTS No Results PROCEDURES No Known procedures INSTRUCTIONS MEDICATIONS ADMINISTERED No Known Medications MEDICAL (GENERAL) HISTORY Type Description Date Surgical History section [id number] Surgical History tubal ligation 09/2015 Hospitalization History Post C-Sections
--- OUTSIDE RECORDS SUMMARY | 2018-03-02 12:55 | XMS REPORT ---
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 915416145 Problem Missed period N92.6 Active 06860465 Problem Left renal mass N28.89 Active 861862710 Problem Renal calculus, bilateral N20.0 Active 48686482 ALLERGIES No Information ENCOUNTERS Encounter Location Date Diagnosis [place] [id number] [place] [address] 29489- 3372 Jan, Breast lump in lower inner quadrant N63.0 [place] [address] 0[address]40- 7102 Jan, Well woman exam with routine gynecological exam Z01.419 ; Screening for STD (sexually transmitted disease) Z11.3 ; Breast lump in lower inner quadrant N63.0 and Brittney vaginitis B37.3 [place] [id number] [place] [address] 25279- 3070 Apr, [place] [id number] [place] [address] 05231- 2957 Apr, [place] [id number] [place] [address] 89730- 0811 Mar, [place] [address] 57780- 4221 Mar, 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 [place] [id number] [place] [address] 87817- 6024 Mar, [facility] [address], [place] [address] 11 Mar, 2017 Abdominal pain R10.9 ; Missed period N92.6 and Right flank pain R10.9 [facility]ALK IN [facility] [address] [place] [address] 93606 -2169 06 Oct, 2016 Cellulitis of neck L03.221 [facility] [place] [id number] [place] [address] 70384 -3418 10 Jan, 2016 Left ankle injury, initial encounter S99.912A and High ankle sprain of left lower extremity, initial encounter S93.432A [place] [address] [place] [address] 90872- 3451 28 Dec, 2015 Unprotected sexual intercourse Z72.51 [place] [id number] [place] [address] 81754- 2941 21 Dec, 2015 IMMUNIZATIONS No Known Immunizations SOCIAL HISTORY Never Assessed REASON FOR VISIT Requests return call PLAN OF CARE Activity Details Pending Test Mammogram Dx, Right VITAL SIGNS MEDICATIONS Unknown Medications RESULTS No Results PROCEDURES No Known procedures INSTRUCTIONS MEDICATIONS ADMINISTERED No Known Medications MEDICAL (GENERAL) HISTORY Type Description Date Surgical History section [id number] Surgical History tubal ligation 09/2015 Hospitalization History Post C-Sections
--- OUTSIDE RECORDS SUMMARY | 2018-03-02 12:56 | XMS REPORT ---
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 405338122 Problem Missed period N92.6 Active 73343478 Problem Left renal mass N28.89 Active 964200885 Problem Renal calculus, bilateral N20.0 Active 13425000 ALLERGIES No Information ENCOUNTERS Encounter Location Date Diagnosis [facility] [id number] [place] [address] 69907- 3477 Apr, [facility] [id number] [place] [address] 66612- 5176 Apr, [facility] [address] 97964- 8624 Mar, [facility] [id number] [place] [address] 25254- 9000 Mar, 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 [id number] [place] [address] 28392 -0584 06 Oct, 2016 Cellulitis of neck L03.221 [facility] [address] [place] [address] 58517 -3221 Jan, Left ankle injury, initial encounter S99.912A and High ankle sprain of left lower extremity, initial encounter S93.432A [facility] [address] [facility] [id number] [place] [address]68 Dec, Unprotected sexual intercourse Z72.51 [facility] [address] [facility] [id number] [place] [address]3 Dec, IMMUNIZATIONS No Known Immunizations SOCIAL HISTORY Never Assessed REASON FOR VISIT Retro PA CT abd & pelvis PLAN OF CARE VITAL SIGNS MEDICATIONS Unknown Medications RESULTS No Results PROCEDURES No Known procedures INSTRUCTIONS MEDICATIONS ADMINISTERED No Known Medications MEDICAL (GENERAL) HISTORY Type Description Date Surgical History section 5395-0828 Surgical History tubal ligation 09/2015 Hospitalization History Post C-Sections
--- OUTSIDE RECORDS SUMMARY | 2018-03-02 12:56 | XMS REPORT ---
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 367799755 Problem Missed period N92.6 Active 76063764 Problem Left renal mass N28.89 Active 519967724 Problem Renal calculus, bilateral N20.0 Active 59532390 ALLERGIES No Information ENCOUNTERS Encounter Location Date Diagnosis [facility] [id number] [place] [address] 41316- 1194 Apr, [facility] [id number] [place] [address] 75925- 5436 Apr, [facility] [address] 33033- 9377 Mar, [facility] [id number] [place] [address] 35973- 6781 Mar, 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 [facility] [id number] [place] [address] 87802- 1047 Mar, [facility] [id number] [place] [address] 72804 -9839 11 Mar, 2017 Abdominal pain R10.9 ; Missed period N92.6 and Right flank pain R10.9 [facility] [id number] [place] [address] 24151 -5138 06 Oct, 2016 Cellulitis of neck L03.221 [facility] [id number] [place] [address] 49123 -9751 Jan, Left ankle injury, initial encounter S99.912A and High ankle sprain of left lower extremity, initial encounter S93.432A [facility] [address] [facility] [id number] [place] [address]- 1683 Dec, Unprotected sexual intercourse Z72.51 [facility] [address] [facility] [id number] [place] [address]- 0985 Dec, IMMUNIZATIONS No Known Immunizations SOCIAL HISTORY Never Assessed REASON FOR VISIT PA Renal US PLAN OF CARE VITAL SIGNS MEDICATIONS Unknown Medications RESULTS No Results PROCEDURES No Known procedures INSTRUCTIONS MEDICATIONS ADMINISTERED No Known Medications MEDICAL (GENERAL) HISTORY Type Description Date Surgical History section 5567-4396 Surgical History tubal ligation 09/2015 Hospitalization History Post C-Sections
--- OUTSIDE RECORDS SUMMARY | 2018-03-02 12:56 | XMS REPORT ---
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 920538496 Problem Missed period N92.6 Active 33858287 Problem Left renal mass N28.89 Active 659721913 Problem Renal calculus, bilateral N20.0 Active 59696905 ALLERGIES No Information ENCOUNTERS Encounter Location Date Diagnosis [facility] [id number] [place] [phone] Apr, [facility] [id number] [place] [phone] 9669 Apr, [facility] [address] [address] Mar, [facility] [id number] [place] [phone][phone] Mar, 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 [facility] [id number] [place] [phone] Mar, [facility] [id number] [place] [phone] 11 Mar, 2017 Abdominal pain R10.9 ; Missed period N92.6 and Right flank pain R10.9 [facility] [id number] [place] [phone] 06 Oct, 2016 Cellulitis of neck L03.221 [facility] [id number] [place] [phone] Jan, Left ankle injury, initial encounter S99.912A and High ankle sprain of left lower extremity, initial encounter S93.432A [facility] [address] [facility] [id number] [place] [address] Dec, Unprotected sexual intercourse Z72.51 [facility] [address] [facility] [id number] [place] [address] Dec, IMMUNIZATIONS No Known Immunizations SOCIAL HISTORY Never Assessed REASON FOR VISIT Test results PLAN OF CARE VITAL SIGNS MEDICATIONS Unknown Medications RESULTS Name Result Date Reference Range Ultrasound : Renal, COMPLETE 2017-03-26 PROCEDURES No Known procedures INSTRUCTIONS MEDICATIONS ADMINISTERED No Known Medications MEDICAL (GENERAL) HISTORY Type Description Date Surgical History section Surgical History tubal ligation 09/2015 Hospitalization History Post C-Sections
--- OUTSIDE RECORDS SUMMARY | 2018-03-02 12:56 | XMS REPORT ---
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 112681752 Problem Missed period N92.6 Active 12727814 Problem Left renal mass N28.89 Active 248879838 Problem Renal calculus, bilateral N20.0 Active 66561222 ALLERGIES Substance Reaction Event Type Date Status Amoxicillin hives Drug Allergy Mar, Active ENCOUNTERS Encounter Location Date Diagnosis [facility] [id number] [place] [phone] Apr, [facility] [id number] [place] [phone][phone] Apr, [facility] [id number] [place] [address] 6[address]66[phone] Mar, [facility] [id number] [place] [address] 59274- [address] Mar, 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 [facility] [id number] [place] [address]60[address] Mar, [facility] [id number] [place] [phone] Mar, Abdominal pain R10.9 ; Missed period N92.6 and Right flank pain R10.9 [facility] [id number] [place] [phone] [phone] Oct, Cellulitis of neck L03.221 [facility] [id number] [place] [address] 10 Jan, 2016 Left ankle injury, initial encounter S99.912A and High ankle sprain of left lower extremity, initial encounter S93.432A [facility] [address] [facility] [id number] [place] [address] 28 Dec, 2015 Unprotected sexual intercourse Z72.51 [facility] [address] [facility] [id number], [place] [address] 21 Dec, 2015 IMMUNIZATIONS No Known Immunizations SOCIAL HISTORY Never Assessed REASON FOR VISIT right flank pain with RLQ pain. pt does have a history of kidney stones. pt is also 2 weeks late on her menstural cycle. last period was 02/07-02/09 2017...short cycle. last BM was yesterday and normal for her. [email or web address] PLAN OF CARE Activity Details Follow Up prn Reason: VITAL SIGNS Height 66 in 2017-03-17 Weight 182.2 lbs 2017-03-17 Temperature 98.6 degrees Fahrenheit 2017-03-17 Heart Rate 82 bpm 2017-03-17 Respiratory Rate 20 2017-03-17 BMI 29.40 kg/m2 2017-03-17 Blood pressure systolic 130 mmHg 2017-03-17 Blood pressure diastolic 84 mmHg 2017-03-17 MEDICATIONS Medication Instructions Dosage Frequency Start Date End Date Duration Status Midol Active RESULTS Name Result Date Reference Range TEST, URINE (IN HOUSE) 2017-03-17 RESULTS negative Lot # [id number] Control + Exp date 05 07 2018 UA LONG DIP (IN HOUSE) 2017-03-17 Lot # [id number] Exp date 2018 02 30 Clarity cloudy Color yellow Odor none GLU negative JENAE negative KET negative SG 1.020 BLO negative pH 8.5 Protein negative URO 1.0 NIT negative MARIELLE trace Lot # [id number] Exp date July 2017 CT Scan : Abd & Pelvis w/o contrast (STONE PROTOCOL) 2017-03-17 PROCEDURES Procedure Date Ordered Result Body Site URINALYSIS, AUTO, W/O SCOPE Mar 17, 2017 URINE TEST Mar 17, 2017 INSTRUCTIONS MEDICATIONS ADMINISTERED No Known Medications MEDICAL (GENERAL) HISTORY Type Description Date Surgical History section Surgical History tubal ligation 09/2015 Hospitalization History Post C-Sections
--- OUTSIDE RECORDS SUMMARY | 2018-03-02 12:56 | XMS REPORT ---
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 763758590 Problem Missed period N92.6 Active 33612173 Problem Left renal mass N28.89 Active 452321375 Problem Renal calculus, bilateral N20.0 Active 33951122 ALLERGIES No Information ENCOUNTERS Encounter Location Date Diagnosis [facility] [id number] [place] [phone] Apr, [facility] [id number] [place] [address]- [address] Apr, [facility] [address] [address] Mar, [facility] [id number] [place] [address] Mar, 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 [facility] [id number] [place] [address]- [address] Mar, [facility] [id number] [place] [address]31 [phone] 11 Mar, 2017 Abdominal pain R10.9 ; Missed period N92.6 and Right flank pain R10.9 [facility] [id number] [place] [address] 06 Oct, 2016 Cellulitis of neck L03.221 [facility] [id number] [place] [address] Jan, Left ankle injury, initial encounter S99.912A and High ankle sprain of left lower extremity, initial encounter S93.432A [facility] [id number] [place] [address] Dec, Unprotected sexual intercourse Z72.51 [facility] [address] [facility] [id number] [place] [address] Dec, IMMUNIZATIONS No Known Immunizations SOCIAL HISTORY Never Assessed REASON FOR VISIT failure to sign release PLAN OF CARE VITAL SIGNS MEDICATIONS Unknown Medications RESULTS No Results PROCEDURES No Known procedures INSTRUCTIONS MEDICATIONS ADMINISTERED No Known Medications MEDICAL (GENERAL) HISTORY Type Description Date Surgical History section [id number] Surgical History tubal ligation 09/2015 Hospitalization History Post C-Sections
[2018-03-02] MEDS ORDERED: KETOROLAC 30 MG/ML VIAL IVP STA (13:48)
[2018-03-02] MEDS ORDERED: NS IV 1000 ML 1,000 ML IV STA (13:48)
[2018-03-02 14:00] LABS: BASOPHILS % (AUTO) 0 % (0-10); EOSINOPHILS # (AUTO) 0.2 10^3/uL (0.0-0.3); EOSINOPHILS % (AUTO) 3 % (0-10); HEMATOCRIT 39 % (35-52); HEMOGLOBIN 13.5 G/DL (11.5-16.0); LYMPHOCYTES % (AUTO) 30 % (12-44); MEAN CORPUSCULAR HEMOGLOBIN 28 PG (25-34); MEAN CORPUSCULAR HGB CONC 34 G/DL (32-36); MEAN CORPUSCULAR VOLUME 83 FL (80-99); MEAN PLATELET VOLUME 10.1 FL (7.4-10.4); MONOCYTES # (AUTO) 0.5 X 10^3 (0.0-1.0); MONOCYTES % (AUTO) 8 % (0-12); NEUTROPHILS # (AUTO) 3.9 X 10^3 (1.8-7.8); NEUTROPHILS % (AUTO) 58 % (42-75); PLATELET COUNT 369 10^3/uL (130-400); RED BLOOD COUNT 4.75 10^6/uL (4.35-5.85); RED CELL DISTRIBUTION WIDTH 14.4 % (10.0-14.5); WHITE BLOOD COUNT 6.7 10^3/uL (4.3-11.0)
[2018-03-02] MEDS ORDERED: ONDANSETRON 4 MG/2 ML (SDV) Z0FRAN IVP ONE ×2 (14:00→17:30)
[2018-03-02 14:02] LABS: BILIRUBIN,URINE NEGATIVE (NEGATIVE); CLARITY,URINE CLEAR; COLOR,URINE YELLOW; GLUCOSE, URINE (UA) NEGATIVE (NEGATIVE); KETONES,URINE NEGATIVE (NEGATIVE); LEUKOCYTE ESTERASE ,URINE 1+ (NEGATIVE); NITRITE,URINE NEGATIVE (NEGATIVE); PH,URINE 7 (5-9); PROTEIN,URINE 2+ (NEGATIVE); UROBILINOGEN,URINE NORMAL (NORMAL)
--- NOTE | 2018-03-02 14:10 | ED General ---
General Chief Complaint: Head/Cervical Problems Stated Complaint: HEADACHE,URINATING BLOOD Nursing Triage Note: PT BEGAN TO EXPERIENCE A SORE THROAT 2-3 DAYS AGO, BEGAN URINATING BLOOD YESTERDAY, AND DEVELOPED A SEVERE HEADACHE AT MIDNIGHT LAST NIGHT. Nursing Sepsis Screen: No Definite Risk Source of Information: Patient Exam Limitations: No Limitations History of Present Illness Date Seen by Provider: Mar 02, 2018 Time Seen by Provider: 13:36 Initial Comments Here with report of headache for the last couple days that is moderate to severe and frontal. Reports that it is a very bad headache and not responding to Tylenol and ibuprofen. Also reports that she's had sore throat symptoms that is a little better now but still is moderately congested which may be going to the pain. Does have some mild photophobia. Denies recent injury. Reports she's not had recent fevers. Headache worsened last night although was bad yesterday as well and she was thinking about coming to the emergency department then. She was at work and decided to finish her shift. Overnight it also persisted and then ultimately she decided to come for evaluation this afternoon. Does have nausea with the pain as well as some vomiting. Urine was noted to have red color to it and she reports passing blood in her urine. She is not sure why she is doing that although she was concerned about kidney stones. Timing/Duration: 2-3 Days Severity: Moderate, Severe Associated Systoms: No Chest Pain, No Fever/Chills; Headaches, Nausea/Vomiting ; No Shortness of Air, No Weakness Allergies and Home Medications Allergies Coded Allergies: amoxicillin (Verified Allergy, Mild, 03/02/18) Home Medications Hydrocodone Bit/Acetaminophen 1 Each Tablet, 1 EACH PO Q6H PRN for BREAKTHROUGH PAIN Prescribed by: LOBO NERI on 03/22/17 0153 Patient Home Medication List Home Medication List Reviewed: Yes Review of Systems Review of Systems Constitutional: see HPI; No chills, No fever EENTM: nose congestion, nose pain, throat pain Respiratory: No cough, No short of breath Cardiovascular: no symptoms reported Gastrointestinal: see HPI Genitourinary: see HPI; No dysuria; hematuria : No Musculoskeletal: no symptoms reported Skin: no symptoms reported Psychiatric/Neurological: See HPI, Headache; Denies Weakness Hematologic/Lymphatic: No Symptoms Reported All Other Systems Reviewed Negative Unless Noted: Yes Past Rxhdkms-Xuiumy-Hgeqic Hx Past Med/Social Hx: Reviewed Nursing Past Med/Soc Hx Patient Social History Alcohol Use: Occasionally Uses Alcohol Beverage of Choice: Beer Recreational Drug Use: No Smoking Status: Never a Smoker 2nd Hand Smoke Exposure: No Recent Foreign Travel: No Contact w/Someone Who Travel: No Recent Infectious Disease Expo: No Recent Hopitalizations: No Immunizations Up To Date Tetanus Booster (TDap): Unknown Seasonal Allergies Seasonal Allergies: No Past Medical History Surgeries: Yes Appendectomy, Section, Tubal Ligation Respiratory: No Cardiac: No Neurological: 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 0.0oz. 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-XII Norm as Tested Skin: Normal Color, Warm/Dry Progress/Results/Core Measures Suspected Sepsis Recent Fever Within 48 Hours: No Infection Criteria Present: None New/Unexplained Altered Menta: No Sepsis Screen: No Definite Risk SIRS Temperature:98.5 Pulse: 109 Respiratory Rate: 20 Laboratory Tests 03/02/18 13:54: White Blood Count 6.7 Blood Pressure 168 /126 Mean: 140 Laboratory Tests 03/02/18 13:54: Creatinine 0.64, Platelet Count 369, Total Bilirubin 0.7 Results/Orders Lab Results Laboratory Tests Test 03/02/18 13:49 03/02/18 13:54 03/02/18 14:03 03/02/18 14:30 Range/Units Urine Color YELLOW Urine Clarity CLEAR Urine pH 7 5-9 Urine Specific Leland 1.015 L 1.016-1.022 Urine Protein 2+ H NEGATIVE Urine Glucose (UA) NEGATIVE NEGATIVE Urine Ketones NEGATIVE NEGATIVE Urine Nitrite NEGATIVE NEGATIVE Urine Bilirubin NEGATIVE NEGATIVE Urine Urobilinogen NORMAL NORMAL MG/DL Urine Leukocyte Esterase 1+ H NEGATIVE Urine RBC (Auto) 5+ H NEGATIVE Urine RBC TNTC H /HPF Urine WBC NONE /HPF Urine Squamous Epithelial Cells RARE /HPF Urine Crystals NONE /LPF Urine Bacteria NEGATIVE /HPF Urine Casts NONE /LPF Urine Mucus NEGATIVE /LPF Urine Culture Indicated NO White Blood Count 6.7 4.3-11.0 10^3/uL Red Blood Count 4.75 4.35-5.85 10^6/uL Hemoglobin 13.5 11.5-16.0 G/DL Hematocrit 39 35-52 % Mean Corpuscular Volume 83 80-99 FL Mean Corpuscular Hemoglobin 28 25-34 PG Mean Corpuscular Hemoglobin Concent 34 32-36 G/DL Red Cell Distribution Width 14.4 10.0-14.5 % Platelet Count 369 130-400 10^3/uL Mean Platelet Volume 10.1 7.4-10.4 FL Neutrophils (%) (Auto) 58 42-75 % Lymphocytes (%) (Auto) 30 12-44 % Monocytes (%) (Auto) 8 0-12 % Eosinophils (%) (Auto) 3 0-10 % Basophils (%) (Auto) 0 0-10 % Neutrophils # (Auto) 3.9 1.8-7.8 X 10^3 Lymphocytes # (Auto) 2.0 1.0-4.0 X 10^3 Monocytes # (Auto) 0.5 0.0-1.0 X 10^3 Eosinophils # (Auto) 0.2 0.0-0.3 10^3/uL Basophils # (Auto) 0.0 0.0-0.1 10^3/uL Sodium Level 138 135-145 MMOL/L Potassium Level 3.3 L 3.6-5.0 MMOL/L Chloride Level 103 98-107 MMOL/L Carbon Dioxide Level 23 21-32 MMOL/L Anion Gap 12 5-14 MMOL/L Blood Urea Nitrogen 7 7-18 MG/DL Creatinine 0.64 0.60-1.30 MG/DL Estimat Glomerular Filtration Rate > 60 BUN/Creatinine Ratio 11 Glucose Level 105 70-105 MG/DL Calcium Level 9.6 8.5-10.1 MG/DL Corrected Calcium 9.2 8.5-10.1 MG/DL Total Bilirubin 0.7 0.1-1.0 MG/DL Aspartate Amino Transf (AST/SGOT) 18 5-34 U/L Alanine Aminotransferase (ALT/SGPT) 25 0-55 U/L Alkaline Phosphatase 129 40-136 U/L C-Reactive Protein High Sensitivity 1.03 H 0.00-0.50 MG/DL Total Protein 8.2 6.4-8.2 GM/DL Albumin 4.5 3.2-4.5 GM/DL Urine Test NEGATIVE NEGATIVE Group A Streptococcus Screen NEGATIVE NEGATIVE Micro Results Microbiology 03/02/18 Influenza Types A,B Antigen (EBONY) - Final, Complete My Orders Orders - MAYA OSHEA MD Cbc With Automated Diff (03/02/18 13:48) Comprehensive Metabolic Panel (03/02/18 13:48) Hs C Reactive Protein (03/02/18 13:48) Ua Culture If Indicated (03/02/18 13:48) Ondansetron Injection (Zofran Injectio (03/02/18 14:00) Ns Iv 1000 Ml (Sodium Chloride 0.9%) (03/02/18 13:48) Saline Lock/Iv-Start (03/02/18 13:48) Ketorolac Injection (Toradol Injection) (03/02/18 13:48) Hcg,Qualitative Urine (03/02/18 14:03) Rapid Strep A Screen (03/02/18 14:30) Influenza A And B Antigens (03/02/18 14:30) Ct Head Wo (03/02/18 14:30) Ct Abd/Pelvis Wo(Kidney Stone) (03/02/18 ) Dexamethasone Injection (Decadron Inject (03/02/18 16:30) Medications Given in ED Current Medications Medications Dose Ordered Sig/Vance Route Start Time Stop Time Status Last Admin Dose Admin Dexamethasone Sodium Phosphate 10 mg ONCE ONCE IV 03/02/18 16:30 03/02/18 16:31 DC 03/02/18 16:30 10 MG Ondansetron HCl 4 mg ONCE ONCE IVP 03/02/18 14:00 03/02/18 14:01 DC 03/02/18 14:08 4 MG Vital Signs/I&O 03/02/18 13:19 Temp 98.5 Pulse 109 Resp 20 B/P (MAP) 168/126 (140) Pulse Ox 96 O2 Delivery Room Air Capillary Refill : Less Than 3 Seconds Blood Pressure Mean: 140 Progress Note : Progress Note Seen and evaluated. IV, labs, UA, normal saline 1 L bolus, Toradol 30 mg IV and Zofran 4 mg IV ordered. Monitor patient. There is moderate amount of blood in the urine. CT abdomen pelvis ordered. We will also get CT of the head due to the pain and upper respiratory concerns. Monitor patient. 1630: Overall much better. Decadron 10 mg IV ordered. This was for the sinusitis. No obvious current stones although patient may have passed a kidney stone given the amount that she has in her kidneys and the blood. We will go ahead and initiate treatment outpatient for the sinusitis with Omnicef which will cover urinary tract infection as well. All of this was discussed with the patient who agrees. Overall she is doing much better. Discharged home with return precautions. Patient verbalize understanding instructions and agreement with plan. Diagnostic Imaging Diagonstic Imaging: CT Plain Films/CT/US/NM/MRI: head Comments VIA [facility] [place], [place] NAME: [facility] REC#: [id number] PT STATUS: REG ER : 1990 PHYSICIAN: MAYA OSHEA MD ADMIT DATE: 03/02/18/ER Draft Date of Exam:03/02/18 CT HEAD WO CLINICAL INDICATION: Patient with headache which is worse today frontally, but mainly headache all over. EXAM: Axial CT scan of brain performed without IV contrast. COMPARISON: None. FINDINGS: There is no evidence of acute cerebral infarct, intracranial hemorrhage, or gross mass effect. The brain parenchymal volume appears appropriate for patient's age. There is normal silva-white matter distinction. There is no significant midline shift or herniation. There is no evidence of hydrocephalus. The basal cisterns are unremarkable. The skull, extracranial soft tissue, and orbits are unremarkable. There is moderate mucosal thickening in left maxillary sinus. Temporal bones show no significant abnormality. IMPRESSION: Moderate left maxillary sinus disease. Otherwise, unremarkable CT scan of the brain. Dictated on workstation # [id number] Dict: 03/02/18 1518 Trans: 03/02/18 1523 [id number] Interpreted by: ISAAC PERAZA MD Electronically signed by: Veronica Imaging: CT Plain Films/CT/US/NM/MRI: abdomen, pelvis Comments NAME: [facility] REC#: [id number] PT STATUS: REG ER : 1990 PHYSICIAN: MAYA OSHEA MD ADMIT DATE: 03/02/18/ER Signed Date of Exam: 03/02/18 CT ABD/PELVIS WO(KIDNEY STONE) PROCEDURE: CT urinary tract, rule out kidney stone. TECHNIQUE: Multiple contiguous axial images were obtained through the abdomen and pelvis without the use of intravenous contrast. INDICATION: Hematuria. COMPARISON: Comparison is made with prior CT from 03/22/2017. FINDINGS: The lung bases are clear. The liver and gallbladder are unremarkable. The pancreas and spleen are unremarkable. No adrenal mass is detected. Multiple bilateral nonobstructing renal calculi are again seen. No definite ureteral calculi are identified. No hydronephrosis is detected. Aorta is nonaneurysmal. Small and large bowel loops are normal caliber. There is no ascites. Uterus and ovaries are unremarkable. Bladder is unremarkable. IMPRESSION: Bilateral nonobstructing nephrolithiasis. No ureteral calculi or hydronephrosis is detected. Dictated by: Dictated on workstation # [id number] Dict: 03/02/18 1524 Trans: 03/02/18 1535 Interpreted by: RUPERTO ROMERO MD Electronically signed by: RUPERTO ROMERO MD 03/02/18 1535 Departure Impression Primary Impression: Sinusitis Qualified Codes: J01.90 - Acute sinusitis, unspecified Additional Impressions: Headache Qualified Codes: R51 - Headache Hematuria Qualified Codes: R31.9 - Hematuria, unspecified Disposition: 01 HOME, SELF-CARE Condition: Improved Departure-Patient Inst. Decision time for Depature: 16:30 Referrals: NOREEN MANCIA DO (PCP) Primary Care Physician JIM VALDES APRN (Family) Primary Care Physician Patient Instructions: Blood in the Urine (Hematuria) in Adults, Headache, Adult (DC), Sinusitis, Adult (DC) Add. Discharge Instructions: All discharge instructions reviewed with patient and/or family. Voiced understanding You may take ibuprofen 800 mg every 8 hours as needed for pain. You may take Tylenol/acetaminophen 1000 mg every 8 hours as needed for pain if you're not taking the prescribed pain medicine. Do not take both at the same time as they both have acetaminophen in them. Take other medications as directed. Follow- up with your Dr. in a few days for recheck. Return for worse pain, fever, vomiting, weakness, breathing problems or other concerns as needed. Scripts Hydrocodone Bit/Acetaminophen (Hydrocodone/Acetaminophen 5/325mg Tablet) 1 Tab Tab 1 EACH PO Q4-6HR PRN for PAIN-MODERATE MDD 10, #10 TAB 0 Refills Prov: MAYA OSHEA MD 03/02/18 Cefdinir (Cefdinir) 300 Mg Capsule 300 MG PO BID, #20 CAP 0 Refills Prov: MAYA OSHEA MD 03/02/18 MAYA OSHEA MD Mar 02, 2018 14:10
[2018-03-02 14:12] LABS: BACTERIA,URINE NEGATIVE /HPF; RBC,URINE TNTC /HPF; SQUAMOUS EPITHELIAL CELL,UR RARE /HPF
[2018-03-02 14:25] LABS: ALANINE AMINOTRANSFERASE 25 U/L (0-55); ALBUMIN 4.5 GM/DL (3.2-4.5); ALKALINE PHOSPHATASE 129 U/L (40-136); BILIRUBIN,TOTAL 0.7 MG/DL (0.1-1.0); BUN/CREATININE RATIO 11; CALCIUM 9.6 MG/DL (8.5-10.1); CARBON DIOXIDE 23 MMOL/L (21-32); CHLORIDE 103 MMOL/L (98-107); CREATININE SERUM 0.64 MG/DL (0.60-1.30); GFR ESTIMATED > 60; GLUCOSE 105 MG/DL (70-105); POTASSIUM 3.3 MMOL/L (3.6-5.0); SODIUM 138 MMOL/L (135-145); TOTAL PROTEIN 8.2 GM/DL (6.4-8.2)
--- NOTE | 2018-03-02 15:23 | Diagnostic Imaging Report ---
CLINICAL INDICATION: Patient with headache which is worse today frontally, but mainly headache all over. EXAM: Axial CT scan of brain performed without IV contrast. COMPARISON: None. FINDINGS: There is no evidence of acute cerebral infarct, intracranial hemorrhage, or gross mass effect. The brain parenchymal volume appears appropriate for patient's age. There is normal silva-white matter distinction. There is no significant midline shift or herniation. There is no evidence of hydrocephalus. The basal cisterns are unremarkable. The skull, extracranial soft tissue, and orbits are unremarkable. There is moderate mucosal thickening in left maxillary sinus. Temporal bones show no significant abnormality. IMPRESSION: Moderate left maxillary sinus disease. Otherwise, unremarkable CT scan of the brain. Dictated by: Dictated on workstation # [id number]
--- NOTE | 2018-03-02 15:34 | Diagnostic Imaging Report ---
PROCEDURE: CT urinary tract, rule out kidney stone. TECHNIQUE: Multiple contiguous axial images were obtained through the abdomen and pelvis without the use of intravenous contrast. INDICATION: Hematuria. COMPARISON: Comparison is made with prior CT from 03/22/2017. FINDINGS: The lung bases are clear. The liver and gallbladder are unremarkable. The pancreas and spleen are unremarkable. No adrenal mass is detected. Multiple bilateral nonobstructing renal calculi are again seen. No definite ureteral calculi are identified. No hydronephrosis is detected. Aorta is nonaneurysmal. Small and large bowel loops are normal caliber. There is no ascites. Uterus and ovaries are unremarkable. Bladder is unremarkable. IMPRESSION: Bilateral nonobstructing nephrolithiasis. No ureteral calculi or hydronephrosis is detected. Dictated by: Dictated on workstation # [id number]
[2018-03-02] MEDS ORDERED: DEXAMETHASONE 10 MG/ML (DECADRON) 1 ML VIAL IV ONE (16:30)
[2018-03-02] MEDS ORDERED: CEFD300C3 PO (16:44)
[2018-03-02] MEDS ORDERED: ACHD5005 PO (16:44)
[2018-03-02] MEDS ORDERED: ONDANSETRON 4 MG/2 ML (SDV) Z0FRAN ONE (17:18)
[2018-03-02] MEDS ORDERED: ONDA4TAB11 PO (17:20)
[2018-03-02 17:25] VITALS: BP 149/103
== END 2018-03-02 17:28 | disposition home or self-care (01) ==
LOC: EDUNIT# 12:51 → ER 12:52
DX: J32.9 Chronic sinusitis, unspecified (principal); R51 Headache; R31.9 Hematuria, unspecified; E75.21 Fabry (-Anderson) disease; Z90.49 Acquired absence of other specified parts of digestive tract; Z98.890 Other specified postprocedural states; Z98.51 Tubal ligation status
CPT/HCPCS: 36415; 70450; 74176; 80053; 81000; 84703; 85025; 86141; 87430; 87804

== ENCOUNTER 2018-05-11 19:07 | Emergency (ER) | payer MEDICAID ==
[~2018-05-11] VITALS: Ht 167.6 cm; Wt 86.2 kg
[~2018-05-11 19:07] MED LIST changes: +CEFD300C3 PO; +ONDA4TAB11 PO
[2018-05-11 20:35] LABS: BILIRUBIN,URINE NEGATIVE (NEGATIVE); CLARITY,URINE VERY CLOUDY; COLOR,URINE YELLOW; GLUCOSE, URINE (UA) NEGATIVE (NEGATIVE); KETONES,URINE 1+ (NEGATIVE); LEUKOCYTE ESTERASE ,URINE NEGATIVE (NEGATIVE); NITRITE,URINE NEGATIVE (NEGATIVE); PH,URINE 8 (5-9); PROTEIN,URINE NEGATIVE (NEGATIVE); UROBILINOGEN,URINE NORMAL (NORMAL)
[2018-05-11 20:43] LABS: RBC,URINE 25-50 /HPF
[2018-05-11 20:44] LABS: AMORPHOUS SEDIMENT,UR MOD AMOR PHOSPHATE /LPF
[2018-05-11 20:46] LABS: BASOPHILS # (AUTO) 0.1 10^3/uL (0.0-0.1); BASOPHILS % (AUTO) 1 % (0-10); EOSINOPHILS # (AUTO) 0.1 10^3/uL (0.0-0.3); EOSINOPHILS % (AUTO) 2 % (0-10); HEMATOCRIT 40 % (35-52); HEMOGLOBIN 13.8 G/DL (11.5-16.0); LYMPHOCYTES # (AUTO) 1.8 X 10^3 (1.0-4.0); LYMPHOCYTES % (AUTO) 23 % (12-44); MEAN CORPUSCULAR HEMOGLOBIN 29 PG (25-34); MEAN CORPUSCULAR HGB CONC 34 G/DL (32-36); MEAN CORPUSCULAR VOLUME 83 FL (80-99); MONOCYTES # (AUTO) 0.5 X 10^3 (0.0-1.0); MONOCYTES % (AUTO) 6 % (0-12); NEUTROPHILS # (AUTO) 5.4 X 10^3 (1.8-7.8); NEUTROPHILS % (AUTO) 68 % (42-75); PLATELET COUNT 350 10^3/uL (130-400); RED CELL DISTRIBUTION WIDTH 14.1 % (10.0-14.5); WHITE BLOOD COUNT 7.9 10^3/uL (4.3-11.0)
[2018-05-11] MEDS ORDERED: KETOROLAC 30 MG/ML VIAL IVP ONE (21:00)
[2018-05-11] MEDS ORDERED: NS IV 1000 ML 1,000 ML IV SCH (21:00)
[2018-05-11] MEDS ORDERED: fentaNYL INJECTION 100 MCG/2 ML AMP IVP ONE (21:00)
[2018-05-11 21:06] LABS: ALANINE AMINOTRANSFERASE 45 U/L (0-55); ALBUMIN 4.8 GM/DL (3.2-4.5); ALKALINE PHOSPHATASE 123 U/L (40-136); BILIRUBIN,TOTAL 0.4 MG/DL (0.1-1.0); BUN/CREATININE RATIO 13; CALCIUM 9.9 MG/DL (8.5-10.1); CARBON DIOXIDE 23 MMOL/L (21-32); CHLORIDE 105 MMOL/L (98-107); CREATININE SERUM 0.69 MG/DL (0.60-1.30); GFR ESTIMATED > 60; GLUCOSE 120 MG/DL (70-105); LIPASE 11 U/L (8-78); POTASSIUM 3.5 MMOL/L (3.6-5.0); SODIUM 142 MMOL/L (135-145); TOTAL PROTEIN 8.6 GM/DL (6.4-8.2)
--- NOTE | 2018-05-11 21:41 | ED Back Pain ---
General Chief Complaint: Back Problems Stated Complaint: LOWER BACK PAIN,UNABLE TO URINATE,VOMITING Source of Information: Patient Exam Limitations: No Limitations History of Present Illness Date Seen by Provider: May 11, 2018 Time Seen by Provider: 20:59 Initial Comments 28-year-old female who presents to the emergency room with complaints of right flank pain that started this morning when she woke up. She reports history of kidney stones. Associated Symptoms: No loss of bladder control, No loss of bowel control Allergies and Home Medications Allergies Coded Allergies: amoxicillin (Verified Allergy, Mild, 03/02/18) Home Medications Cefdinir 300 Mg Capsule, 300 MG PO BID Prescribed by: MAYA OSHEA on 03/02/18 1644 Hydrocodone Bit/Acetaminophen 1 Each Tablet, 1 EACH PO Q6H PRN for BREAKTHROUGH PAIN Prescribed by: LOBO NERI on 03/22/17 0153 Hydrocodone Bit/Acetaminophen 1 Tab Tab, 1 EACH PO Q4-6HR PRN for PAIN-MODERATE Prescribed by: MAYA OSHEA on 03/02/18 1644 Hydrocodone Bit/Acetaminophen 1 Tab Tab, 1 EACH PO Q4-6HR PRN for PAIN-MODERATE Prescribed by: AWAIS CLEMENT on 05/11/18 2220 Ondansetron 4 Mg Tab.rapdis, 4 MG PO Q6H PRN for NAUSEA/VOMITING Prescribed by: MAYA OSHEA on 03/02/18 1720 Sulfamethoxazole/Trimethoprim 1 Each Tablet, 1 EACH PO BID Prescribed by: AWAIS CLEMENT on 05/11/18 2220 Patient Home Medication List Home Medication List Reviewed: Yes Review of Systems Constitutional: no symptoms reported, see HPI Genitourinary: see HPI, dysuria, pain (right flank) All Other Systems Reviewed Negative Unless Noted: Yes Past Hstafwr-Caqxbl-Husdrj Hx Patient Social History Alcohol Beverage of Choice: Beer 2nd Hand Smoke Exposure: No Recent Foreign Travel: No Contact w/Someone Who Travel: No Recent Hopitalizations: No Immunizations Up To Date Tetanus Booster (TDap): Unknown Seasonal Allergies Seasonal Allergies: No Past Medical History Surgeries: Yes Appendectomy, Section, Tubal Ligation Respiratory: No Cardiac: No 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 0.0oz. 86.239417ix; 31.6 BMI Method:Stated Progress/Results/Core Measures Results/Orders Lab Results Laboratory Tests Test 05/11/18 20:30 05/11/18 20:38 Range/Units Urine Color YELLOW Urine Clarity VERY CLOUDY H Urine pH 8 5-9 Urine Specific [place] 1.015 L 1.016-1.022 Urine Protein NEGATIVE NEGATIVE Urine Glucose (UA) NEGATIVE NEGATIVE Urine Ketones 1+ H NEGATIVE Urine Nitrite NEGATIVE NEGATIVE Urine Bilirubin NEGATIVE NEGATIVE Urine Urobilinogen NORMAL NORMAL MG/DL Urine Leukocyte Esterase NEGATIVE NEGATIVE Urine RBC (Auto) 4+ H NEGATIVE Urine RBC 25-50 H /HPF Urine WBC NONE /HPF Urine Squamous Epithelial Cells 2-5 /HPF Urine Crystals PRESENT H /LPF Urine Amorphous Sediment MOD SHERI PHOSPHATE H /LPF Urine Bacteria NONE /HPF Urine Casts NONE /LPF Urine Mucus NEGATIVE /LPF Urine Culture Indicated NO White Blood Count 7.9 4.3-11.0 10^3/uL Red Blood Count 4.83 4.35-5.85 10^6/uL Hemoglobin 13.8 11.5-16.0 G/DL Hematocrit 40 35-52 % Mean Corpuscular Volume 83 80-99 FL Mean Corpuscular Hemoglobin 29 25-34 PG Mean Corpuscular Hemoglobin Concent 34 32-36 G/DL Red Cell Distribution Width 14.1 10.0-14.5 % Platelet Count 350 130-400 10^3/uL Mean Platelet Volume 10.0 7.4-10.4 FL Neutrophils (%) (Auto) 68 42-75 % Lymphocytes (%) (Auto) 23 12-44 % Monocytes (%) (Auto) 6 0-12 % Eosinophils (%) (Auto) 2 0-10 % Basophils (%) (Auto) 1 0-10 % Neutrophils # (Auto) 5.4 1.8-7.8 X 10^3 Lymphocytes # (Auto) 1.8 1.0-4.0 X 10^3 Monocytes # (Auto) 0.5 0.0-1.0 X 10^3 Eosinophils # (Auto) 0.1 0.0-0.3 10^3/uL Basophils # (Auto) 0.1 0.0-0.1 10^3/uL Sodium Level 142 135-145 MMOL/L Potassium Level 3.5 L 3.6-5.0 MMOL/L Chloride Level 105 98-107 MMOL/L Carbon Dioxide Level 23 21-32 MMOL/L Anion Gap 14 5-14 MMOL/L Blood Urea Nitrogen 9 7-18 MG/DL Creatinine 0.69 0.60-1.30 MG/DL Estimat Glomerular Filtration Rate > 60 BUN/Creatinine Ratio 13 Glucose Level 120 H 70-105 MG/DL Calcium Level 9.9 8.5-10.1 MG/DL Corrected Calcium 8.5-10.1 MG/DL Total Bilirubin 0.4 0.1-1.0 MG/DL Aspartate Amino Transf (AST/SGOT) 32 5-34 U/L Alanine Aminotransferase (ALT/SGPT) 45 0-55 U/L Alkaline Phosphatase 123 40-136 U/L Total Protein 8.6 H 6.4-8.2 GM/DL Albumin 4.8 H 3.2-4.5 GM/DL Amylase Level 33 25-125 U/L Lipase 11 8-78 U/L Serum Test, Qualitative NEGATIVE NEGATIVE My Orders Orders - AWAIS CLEMENT Ct Abd/Pelvis Wo(Kidney Stone) (05/11/18 20:58) Abdomen/Kub 1view (05/11/18 20:58) Saline Lock/Iv-Start (05/11/18 20:58) Amylase (05/11/18 20:58) Ns Iv 1000 Ml (Sodium Chloride 0.9%) (05/11/18 21:00) Ketorolac Injection (Toradol Injection) (05/11/18 21:00) Fentanyl Injection (Sublimaze Injection (05/11/18 21:00) Clonidine Tablet (Catapres Tablet) (05/11/18 22:15) Sulfamethoxazole/Trimet Ds Tab (Bactrim (05/11/18 22:15) Rx-Ondansetron Po (Rx-Zofran Po) (05/11/18 22:09) Rx-Hydrocodone/Apap 5-325 Mg (Rx-Vicodin (05/11/18 22:15) Medications Given in ED Vital Signs/I&O 05/11/18 05/11/18 20:35 22:33 Temp 97.1 97.1 Pulse 95 85 Resp 17 17 B/P (MAP) 169/109 (129) 152/99 (116) Pulse Ox 98 Departure Impression Primary Impression: Kidney stone Disposition: HOME, SELF-CARE Condition: Stable/Unchanged Departure-Patient Inst. Decision time for Depature: 22:13 Referrals: NOREEN MANCIA DO (PCP) Primary Care Physician JIM VALDES APRN (Family) Primary Care Physician LYUBOV PEARSON MD Patient Instructions: Kidney Stones (DC) Add. Discharge Instructions: Take medications as directed. Strain all urine and if you should pass a kidney stone take it with you to your appointment with Dr. Pearson. Follow-up with Dr. Pearson office by calling tomorrow morning to schedule an appointment time. You also need to get in to make an appointment with your primary care provider in regards to your hypertension. Call for an appointment tomorrow morning. Return back to the emergency room for worsening symptoms or concerns as needed. All discharge instructions reviewed with patient and/or family. Voiced understanding. Scripts Sulfamethoxazole/Trimethoprim (Bactrim Ds Tablet) 1 Each Tablet 1 EACH PO BID for 7 Days, #14 TAB Prov: AWAIS CLEMENT 05/11/18 Hydrocodone Bit/Acetaminophen (Hydrocodone/Acetaminophen 5/325mg Tablet) 1 Tab Tab 1 EACH PO Q4-6HR PRN for PAIN-MODERATE MDD 10, #10 TAB Prov: AWAIS CLEMENT 05/11/18 AWAIS CLEMENT May 11, 2018 21:41
--- NOTE | 2018-05-11 21:57 | Diagnostic Imaging Report ---
PROCEDURE: CT urinary tract, rule out kidney stone. TECHNIQUE: Multiple contiguous axial images were obtained through the abdomen and pelvis without the use of intravenous contrast. INDICATION: Right flank pain FINDINGS: The previous CT abdomen / pelvis exam of 03/02/2018 noted bilateral nonobstructive calculi within the kidneys but failed to show an acute abnormality. In the interval since the previous exam, a calculus within the right kidney has migrated into the ureter. This calculus is now producing obstruction of the right collecting system. The calculus measures approximately 4.4 mm and is located in the distal right ureter along the inferior margin of the the right sacroiliac joint. The ureter proximal to the calculus is dilated as is the right renal pelvis. The nonobstructive calculi within the left kidney seen previously are essentially no different. There is no sign of obstruction of the left collecting system. The urinary bladder is only partially filled and consequently difficult to assess. There is no acute abnormality of the abdomen or pelvis noted otherwise. There do appear to be surgical clips in the region of the cecum. Reportedly, the patient has had a prior appendectomy. The liver, spleen, pancreas, adrenals, gallbladder, aorta and inferior vena cava show no sign of an acute abnormality. The stomach is partially filled with particulate matter and consequently difficult to assess. The lung bases are clear. The bone windows show no sign of a fracture or of a destructive lesion. IMPRESSION: 1. There is partial obstruction of the right collecting system due to a 4.4 mm calculus in the distal right ureter. 2. There is no acute abnormality in the abdomen or pelvis noted otherwise. Dictated by: Dictated on workstation # [id number]
--- NOTE | 2018-05-11 22:05 | Diagnostic Imaging Report ---
EXAM: Supine abdomen at 9:26 INDICATION: Right-sided pain 2 views were obtained. As noted on the CT abdomen / pelvis exam performed in conjunction with this study, there is a 4 mm calculus within the right ureter just inferior to the level of the sacroiliac joint. There is another smaller radiopaque density just inferior to this level. The would correspond to the surgical clip in the region of the cecum on the CT exam. By history patient has had a prior appendectomy. There is no other abnormality noted. IMPRESSION: The obstructive calculus in the distal right ureter seen previously is again evident. Dictated by: Dictated on workstation # [id number]
[2018-05-11] MEDS ORDERED: RX-ONDANSETRON 4 MG ODT (ZOFRAN) PPK #4 PO STA (22:09)
[2018-05-11] MEDS ORDERED: TRIM/SULFAMETH 160/800 (SEPTRA DS) TAB PO ONE (22:15)
[2018-05-11] MEDS ORDERED: RX-HYDROCODONE/APAP 5/325 MG #4 TAB PK PO PRN (22:15)
[2018-05-11] MEDS ORDERED: cloNIDine 0.1 MG (CATAPRES) TAB PO ONE (22:15)
[2018-05-11] MEDS ORDERED: ACHD5005 PO (22:20)
[2018-05-11] MEDS ORDERED: SULF1TAB35 PO (22:20)
[2018-05-11 22:33] VITALS: BP 152/99
== END 2018-05-11 22:38 | disposition home or self-care (01) ==
LOC: EDUNIT# 19:07 → ER 19:09
DX: N20.2 Calculus of kidney with calculus of ureter (principal); Z88.0 Allergy status to penicillin; Z90.49 Acquired absence of other specified parts of digestive tract; Z98.890 Other specified postprocedural states; Z98.51 Tubal ligation status
CPT/HCPCS: 36415; 74018; 74176; 80053; 81000; 82150; 83690; 84703; 85025

== ENCOUNTER 2018-11-21 02:12 | Emergency (ER) | payer MEDICAID ==
[~2018-11-21] VITALS: Ht 167.6 cm; Wt 87.1 kg
[~2018-11-21 02:12] MED LIST changes: +SULF1TAB35 PO
--- NOTE | 2018-11-21 02:45 | ED Cough/URI ---
General Chief Complaint: Cough/Cold/Flu Symptoms Stated Complaint: POSS BRONCHITIS, STS SHARP PAINS ON RT SIDE Nursing Triage Note: AMBULATORY TO ED ROOM 7 WITH C/O CONTINUED COUGH AND RIGHT SIDED PAIN WHEN BREATHING. STATES WENT TO WALK-IN CLINIC A FEW DAYS AGO AND DIAGNOSED WITH BRONCHITIS AND GIVEN STEROIDS AND AZITHROMYCIN BUT STILL HAS CONTINUED COUGH. Sepsis Screen: No Definite Risk Source: patient Exam Limitations: no limitations History of Present Illness Date Seen by Provider: Nov 21, 2018 Time Seen by Provider: 02:30 Initial Comments PT ARRIVES VIA POV--CAME FROM WORK AT [employer] C/O PRODUCTIVE COUGH FOR 3 WEEKS--GREEN/ YELLOW SPUTUM C/O SLIGHT SHORTNESS OF BREATH NO FEVER/SWEATS/CHILLS TONIGHT AT WORK, WHILE SHE WAS COUGHING SHE BEGAN TO HAVE SUDDEN SEVERE STABBING PAIN IN RIGHT LATERAL CHEST/ RIB AREA STATES IT HURTS TO BREATHE, MOVE, RAISE RIGHT ARM, WALK, ETC. WAS SEEN ON FRIDAY AT WALK IN CLINIC AT [facility] AND WAS DX WITH BRONCHITIS AND GIVEN RX'S FOR ZITHROMAX AND STEROIDS PT HAS NOT TAKEN ANYTHING FOR COUGH OR FOR PAIN AT ANY TIME. NO HISTORY OF SIMILAR PT DOES NOT SMOKE, BUT HAS LOTS OF SECOND HAND SMOKE AT WORK. NO SICK CONTACTS AT HOME PCP: [facility] Allergies and Home Medications Allergies Coded Allergies: amoxicillin (Verified Allergy, Mild, 03/02/18) Home Medications Benzonatate 100 Mg Capsule, 1-2 TAB PO TID Prescribed by: PAZ PANTOJA on 11/21/18 0306 Cefdinir 300 Mg Capsule, 300 MG PO BID Prescribed by: MAYA OSHEA on 03/02/18 1644 Cefdinir 300 Mg Capsule, 300 MG PO BID Prescribed by: PAZ PANTOJA on 11/21/18 0306 Guaifenesin/Dextromethorphan 1 Each Tbmp.12hr, 1 EACH PO BID Prescribed by: PAZ PANTOJA on 11/21/18 0306 Hydrocodone Bit/Acetaminophen 1 Each Tablet, 1 EACH PO Q6H PRN for BREAKTHROUGH PAIN Prescribed by: LOBO NERI on 03/22/17 0153 Hydrocodone Bit/Acetaminophen 1 Tab Tab, 1 EACH PO Q4-6HR PRN for PAIN-MODERATE Prescribed by: MAYA OSHEA on 03/02/18 1644 Hydrocodone Bit/Acetaminophen 1 Tab Tab, 1 EACH PO Q4-6HR PRN for PAIN-MODERATE Prescribed by: AWAIS CLEMENT on 05/11/182219 Methylprednisolone 4 Mg Tab.ds.pk, 4 MG PO UD Prescribed by: PAZ PANTOJA on 11/21/18 0306 Ondansetron 4 Mg Tab.rapdis, 4 MG PO Q6H PRN for NAUSEA/VOMITING Prescribed by: MAYA OSHEA on 03/02/18 1720 Sulfamethoxazole/Trimethoprim 1 Each Tablet, 1 EACH PO BID Prescribed by: AWAIS CLEMENT on 05/11/182219 Patient Home Medication List Home Medication List Reviewed: Yes Review of Systems Review of Systems Constitutional: no symptoms reported; No chills, No dizziness, No fever EENTM: no symptoms reported; No nose congestion, No throat pain Respiratory: see HPI, cough, phlegm, short of breath; No wheezing Cardiovascular: see HPI, chest pain; No edema, No palpitations, No syncope Gastrointestinal: no symptoms reported Genitourinary: no symptoms reported : No LMP: Oct 29, 2018 (S/P BTL) Musculoskeletal: see HPI Skin: no symptoms reported Psychiatric/Neurological: No Symptoms Reported Hematologic/Lymphatic: No Symptoms Reported Immunological/Allergic: no symptoms reported Past Iczgdln-Cdihpi-Udaksq Hx Patient Social History Alcohol Use: Occasionally Uses Number of Drinks Today: AA Alcohol Beverage of Choice: Beer Recreational Drug Use: No Smoking Status: Never a Smoker 2nd Hand Smoke Exposure: No Recent Foreign Travel: No Contact w/Someone Who Travel: No Recent Infectious Disease Expo: No Recent Hopitalizations: No Physical Abuse: No Sexual Abuse: No Mistreated: No Fear: No Immunizations Up To Date Tetanus Booster (TDap): Unknown Seasonal Allergies Seasonal Allergies: No Past Medical History Surgeries: Yes ("MASS REMOVED UNDER RIGHT BREAST" IN APR OR MAY 2018; X 2) Appendectomy, Section, Tonsillectomy, Tubal Ligation Respiratory: No Cardiac: No Neurological: No 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 0oz. 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, no motor/sensory deficits, alert, normal mood/affect, oriented x 3 Skin: normal color, warm/dry; No rash Progress/Results/Core Measures Suspected Sepsis Recent Fever Within 48 Hours: No Infection Criteria Present: Documented Infection New/Unexplained Altered Menta: No Sepsis Screen: No Definite Risk SIRS Temperature:98.4 Pulse: 107 Respiratory Rate: 20 Blood Pressure 161 /121 Mean: 134 Results/Orders My Orders Orders - PAZ PANTOJA DO Chest Pa/Lat (2 View) (11/21/18 02:38) Cefdinir Capsule (Omnicef Capsule) (11/21/18 03:15) Vital Signs/I&O 11/21/18 11/21/18 02:20 02:20 Temp 98.4 Pulse 107 Resp 20 B/P (MAP) 161/121 (134) O2 Delivery Room Air Capillary Refill : Less Than 3 Seconds Blood Pressure Mean: 134 Diagnostic Imaging Comments CXR--NO ACUTE PROCESS, PENDING RADIOLOGIST REVIEW Reviewed: Reviewed by Me Departure Impression Primary Impression: Bronchitis Additional Impression: Right-sided chest wall pain Disposition: 01 HOME, SELF-CARE Condition: Stable Departure-Patient Inst. Referrals: NOREEN MANCIA DO (PCP) Primary Care Physician JIM VALDES APRN (Family) Primary Care Physician Patient Instructions: Acute Bronchitis, Adult (DC), Costochondritis (DC), Pleuritic Chest Pain (DC) Add. Discharge Instructions: LOTS OF CLEAR LIQUIDS TYLENOL NEEDED FOR PAIN FOLLOW UP WITH [facility] IN 3-4 DAYS FOR FURTHER CARE All discharge instructions reviewed with patient and/or family. Voiced understanding. Scripts Guaifenesin/Dextromethorphan (Mucinex Dm ER 1,200-60 mg Tab) 1 Each Tbmp.12hr 1 EACH PO BID for 10 Days, #20 EA Prov: PAZ PANTOJA DO 11/21/18 Benzonatate (TESSALON PERLES) 100 Mg Capsule 1-2 TAB PO TID for Cough, #30 CAP Prov: PAZ PANTOJA DO 11/21/18 Methylprednisolone (Medrol) 4 Mg Tab.ds.pk 4 MG PO UD, #1 PKG Prov: PAZ PANTOJA DO 11/21/18 Cefdinir (Cefdinir) 300 Mg Capsule 300 MG PO BID for FOR INFECTION, #20 CAP Prov: PAZ PANTOJA DO 11/21/18 PAZ PANTOJA DO Nov 21, 2018 02:45
[2018-11-21] MEDS ORDERED: GUAI1TBM19 PO (03:06)
[2018-11-21] MEDS ORDERED: BENZ100C18 PO (03:06)
[2018-11-21] MEDS ORDERED: METH4TAB PO (03:06)
[2018-11-21] MEDS ORDERED: CEFD300C3 PO (03:06)
[2018-11-21 03:12] VITALS: BP 155/99
[2018-11-21] MEDS ORDERED: CEFDINIR 300 MG (OMNICEF) CAP PO ONE (03:15)
--- NOTE | 2018-11-21 06:23 | Diagnostic Imaging Report ---
PA and lateral chest at 240 hours. INDICATION: Cough, congestion. There are no prior chest exams available for comparison. FINDINGS: The heart size is within normal limits. The lungs are clear. There is no sign of failure, pneumonia or pleural effusion to indicate an acute abnormality. However, there is a 1.2 CM noncalcified nodular density overlying the right upper lung on the PA view. This finding is difficult to identify with certainty on the lateral view but this could represent a pulmonary nodule. In a patient of this age, it would be unlikely that this is neoplastic in nature. If previous exams are available, they would be helpful for comparison. If there are no prior studies, however, then CT of chest would be recommended. The mediastinum is not widened. Osseous structures are intact. IMPRESSION: 1. There is no evidence for an acute cardiopulmonary abnormality. 2. The vague noncalcified nodular density overlying the right upper lung seen only on the PA view is of uncertain etiology. Considerations and recommendations as above. Dictated by: Dictated on workstation # [id number]
== END 2018-11-21 03:13 | disposition home or self-care (01) ==
LOC: EDUNIT# 02:12 → ER 02:14
DX: J40 Bronchitis, not specified as acute or chronic (principal); Z88.1 Allergy status to other antibiotic agents; Z90.49 Acquired absence of other specified parts of digestive tract; Z90.89 Acquired absence of other organs; Z98.51 Tubal ligation status
CPT/HCPCS: 71046

== ENCOUNTER 2019-01-01 21:20 | Emergency (ER) | payer MEDICAID ==
[~2019-01-01] VITALS: Ht 167.7 cm; Wt 88.6 kg
[~2019-01-01 21:20] MED LIST changes: +BENZ100C18 PO; +GUAI1TBM19 PO; +METH4TAB PO
--- NOTE | 2019-01-01 21:42 | ED Abdominal Pain ---
General Stated Complaint: ABD PAIN, RT SIDE NUMBNESS Source of Information: Patient Exam Limitations: No Limitations History of Present Illness Date Seen by Provider: Jan 01, 2019 Time Seen by Provider: 21:40 Initial Comments To ER with right-sided abdominal pain is constant but occasionally gets worse. This is gotten progressively more intense over the past 2-3 days. No fevers or chills but she has had some nausea. History of kidney stones and this feels similar. She states the right side of her abdomen feels numb. She's had hematuria and the urge to urinate but has been unable to do so more than 2 or 3 times today. Timing/Duration: 2-3 Days Severity/Quality: Moderate Location: RUQ, RLQ Radiation: No Radiation Associated Symptoms: Denies Symptoms Allergies and Home Medications Allergies Coded Allergies: amoxicillin (Verified Allergy, Mild, 03/02/18) Home Medications Benzonatate 100 Mg Capsule, 1-2 TAB PO TID Prescribed by: PAZ PANTOJA on 11/21/18305 Cefdinir 300 Mg Capsule, 300 MG PO BID Prescribed by: MAYA OSHEA on 03/02/18 164 Cefdinir 300 Mg Capsule, 300 MG PO BID Prescribed by: PAZ PANTOJA on 11/21/18 030 Guaifenesin/Dextromethorphan 1 Each Tbmp.12hr, 1 EACH PO BID Prescribed by: PAZ PANTOJA on 11/21/18 030 Hydrocodone Bit/Acetaminophen 1 Each Tablet, 1 EACH PO Q6H PRN for BREAKTHROUGH PAIN Prescribed by: LOBO NERI on 03/22/17 0153 Hydrocodone Bit/Acetaminophen 1 Tab Tab, 1 EACH PO Q4-6HR PRN for PAIN-MODERATE Prescribed by: MAYA OSHEA on 03/02/18 1644 Hydrocodone Bit/Acetaminophen 1 Tab Tab, 1 EACH PO Q4-6HR PRN for PAIN-MODERATE Prescribed by: AWAIS CLEMENT on 05/11/18 222 Hydrocodone/Acetaminophen 1 Each Tablet, 1 TAB PO Q4-6HR Prescribed by: EDWARD RAMOS on 01/01/192235 Methylprednisolone 4 Mg Tab.ds.pk, 4 MG PO UD Prescribed by: PAZ PANTOJA on 11/21/18 030 Ondansetron 4 Mg Tab.rapdis, 4 MG PO Q6H PRN for NAUSEA/VOMITING Prescribed by: MAYA OSHEA on 03/02/18 1720 Sulfamethoxazole/Trimethoprim 1 Each Tablet, 1 EACH PO BID Prescribed by: AWAIS CLEMENT on 05/11/182219 Sulfamethoxazole/Trimethoprim 1 Each Tablet, 1 EACH PO BID Prescribed by: EDWARD RAMOS on 01/01/192235 Tamsulosin HCl 0.4 Mg Cap, 0.4 MG PO DAILY Prescribed by: EDWARD RAMOS on 01/01/192235 Patient Home Medication List Home Medication List Reviewed: Yes Review of Systems Review of Systems Constitutional: see HPI EENTM: No Symptoms Reported Respiratory: No Symptoms Reported Cardiovascular: No Symptoms Reported Gastrointestinal: See HPI, Abdominal Pain, Nausea Genitourinary: See HPI, Frequency, Hematuria Musculoskeletal: no symptoms reported Skin: no symptoms reported Psychiatric/Neurological: No Symptoms Reported Endocrine: No Symptoms Reported Hematologic/Lymphatic: No Symptoms Reported Past Ryudymy-Cipngi-Tvbqzg Hx Patient Social History Alcohol Beverage of Choice: Beer 2nd Hand Smoke Exposure: No Recent Foreign Travel: No Contact w/Someone Who Travel: No Recent Hopitalizations: No Immunizations Up To Date Tetanus Booster (TDap): Unknown Seasonal Allergies Seasonal Allergies: No Past Medical History Surgeries: Yes ("MASS REMOVED UNDER RIGHT BREAST" IN APR OR MAY 2018; X 2) Appendectomy, Section, Tonsillectomy, Tubal Ligation Respiratory: No Cardiac: No Neurological: No 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 0oz. 87.667721dd; 31.6 BMI Method:Stated General Appearance: WD/WN, mild distress (related to pain) HEENT: PERRL/EOMI, normal ENT inspection Respiratory: no respiratory distress, no accessory muscle use Gastrointestinal: normal bowel sounds, soft, tenderness Extremities: normal range of motion, non-tender Neurologic/Psychiatric: alert, normal mood/affect, oriented x 3 Skin: normal color, warm/dry Progress/Results/Core Measures Results/Orders Lab Results Laboratory Tests Test 01/01/19 21:37 01/01/19 22:25 Range/Units White Blood Count 11.7 H 4.3-11.0 10^3/uL Red Blood Count 4.99 4.35-5.85 10^6/uL Hemoglobin 14.1 11.5-16.0 G/DL Hematocrit 41 35-52 % Mean Corpuscular Volume 82 80-99 FL Mean Corpuscular Hemoglobin 28 25-34 PG Mean Corpuscular Hemoglobin Concent 35 32-36 G/DL Red Cell Distribution Width 14.6 H 10.0-14.5 % Platelet Count 389 130-400 10^3/uL Mean Platelet Volume 10.1 7.4-10.4 FL Neutrophils (%) (Auto) 79 H 42-75 % Lymphocytes (%) (Auto) 15 12-44 % Monocytes (%) (Auto) 5 0-12 % Eosinophils (%) (Auto) 1 0-10 % Basophils (%) (Auto) 0 0-10 % Neutrophils # (Auto) 9.2 H 1.8-7.8 X 10^3 Lymphocytes # (Auto) 1.8 1.0-4.0 X 10^3 Monocytes # (Auto) 0.6 0.0-1.0 X 10^3 Eosinophils # (Auto) 0.1 0.0-0.3 10^3/uL Basophils # (Auto) 0.0 0.0-0.1 10^3/uL Sodium Level 138 135-145 MMOL/L Potassium Level 3.9 3.6-5.0 MMOL/L Chloride Level 104 98-107 MMOL/L Carbon Dioxide Level 20 L 21-32 MMOL/L Anion Gap 14 5-14 MMOL/L Blood Urea Nitrogen 13 7-18 MG/DL Creatinine 0.79 0.60-1.30 MG/DL Estimat Glomerular Filtration Rate > 60 BUN/Creatinine Ratio 16 Glucose Level 134 H 70-105 MG/DL Calcium Level 9.8 8.5-10.1 MG/DL Corrected Calcium 8.5-10.1 MG/DL Total Bilirubin 0.6 0.1-1.0 MG/DL Aspartate Amino Transf (AST/SGOT) 45 H 5-34 U/L Alanine Aminotransferase (ALT/SGPT) 51 0-55 U/L Alkaline Phosphatase 167 H 40-136 U/L Total Protein 9.2 H 6.4-8.2 GM/DL Albumin 4.9 H 3.2-4.5 GM/DL Serum Test, Qualitative NEGATIVE NEGATIVE My Orders Orders - EDWARD RAMOS APRN Cbc With Automated Diff (01/01/19 21:38) Comprehensive Metabolic Panel (01/01/19 21:38) Hcg,Qualitative Serum (01/01/19 21:38) Ua Culture If Indicated (01/01/19 21:38) Ed Iv/Invasive Line Start (01/01/19 21:38) Ns Iv 1000 Ml (Sodium Chloride 0.9%) (01/01/19 21:45) Ketorolac Injection (Toradol Injection) (01/01/19 21:45) Fentanyl Injection (Sublimaze Injection (01/01/19 21:45) Ondansetron Injection (Zofran Injectio (01/01/19 21:45) Abdomen/Kub 1view (01/01/19 21:38) Ct Abd/Pelvis Wo(Kidney Stone) (01/01/19 21:38) Rx-Hydrocodone/Apap 5-325 Mg (Rx-Vicodin (01/01/19 22:30) Ceftriaxone For Iv Use (Rocephin For I (01/01/19 22:45) Fentanyl Injection (Sublimaze Injection (01/01/19 22:45) Medications Given in ED Current Medications Medications Dose Ordered Sig/Vance Route Start Time Stop Time Status Last Admin Dose Admin Fentanyl Citrate 50 mcg ONCE ONCE IVP 01/01/19 21:45 01/01/19 21:46 DC 01/01/19 21:47 50 MCG Ketorolac Tromethamine 30 mg ONCE ONCE IVP 01/01/19 21:45 01/01/19 21:46 DC 01/01/19 21:47 30 MG Ondansetron HCl 4 mg ONCE ONCE IVP 01/01/19 21:45 01/01/19 21:46 DC 01/01/19 21:47 4 MG Vital Signs/I&O 01/01/19 21:28 Temp 36.4 Pulse 97 Resp 24 B/P (MAP) 166/120 (135) Departure Communication (Admissions) There is a right ureteral stone seen on CT, this is suspected to be a ureteral stone rather than a phlebolith due to the dilation of the ureter proximal to the stone, this would certainly fit with her symptoms as well. Impression Primary Impression: Right ureteral stone Disposition: 01 HOME, SELF-CARE Condition: Stable Departure-Patient Inst. Decision time for Depature: 22:32 Referrals: NO,LOCAL PHYSICIAN (PCP) Primary Care Physician LYUBOV CASTRO MD Patient Instructions: Kidney Stones (DC) Add. Discharge Instructions: 1. Increase water intake 2. Medication as directed 3. Call Dr. Castro on Friday for an appointment to be seen. Return to ER for fevers or intolerable pain in the meantime. Add ibuprofen 2-3 tablets every 6 hours to the pain medication that has been prescribed. Scripts Ondansetron (Ondansetron Odt) 8 Mg Tab.rapdis 8 MG PO Q6H PRN for NAUSEA/VOMITING, #10 TAB Prov: EDWARD RAMOS APRN 01/01/19 Sulfamethoxazole/Trimethoprim (Bactrim Ds Tablet) 1 Each Tablet 1 EACH PO BID, #20 TAB Prov: EDWARD RAMOS APRN 01/01/19 Tamsulosin HCl (Flomax) 0.4 Mg Cap 0.4 MG PO DAILY, #14 CAP Prov: EDWARD RAMOS APRN 01/01/19 Hydrocodone/Acetaminophen ([place] 5-325 Tablet) 1 Each Tablet 1 TAB PO Q4-6HR for Pain MDD 10 TABS for 7 Days, #20 TAB Prov: EDWARD RAMOS APRN 01/01/19 Work/School Note: Work Release Form Date Seen in the Emergency Department: Jan 01, 2019 Return to Work: Jan 04, 2019 Restrictions: No Restrictions EDWARD RAMOS APRN Jan 01, 2019 21:42
[2019-01-01] MEDS ORDERED: fentaNYL INJECTION 100 MCG/2 ML AMP IVP ONE ×2 (21:45→22:45)
[2019-01-01] MEDS ORDERED: NS IV 1000 ML 1,000 ML IV SCH (21:45)
[2019-01-01] MEDS ORDERED: ONDANSETRON 4 MG/2 ML (SDV) Z0FRAN IVP ONE (21:45)
[2019-01-01] MEDS ORDERED: KETOROLAC 30 MG/ML VIAL IVP ONE (21:45)
[2019-01-01 21:47] LABS: BASOPHILS % (AUTO) 0 % (0-10); EOSINOPHILS # (AUTO) 0.1 10^3/uL (0.0-0.3); EOSINOPHILS % (AUTO) 1 % (0-10); HEMATOCRIT 41 % (35-52); HEMOGLOBIN 14.1 G/DL (11.5-16.0); LYMPHOCYTES # (AUTO) 1.8 X 10^3 (1.0-4.0); LYMPHOCYTES % (AUTO) 15 % (12-44); MEAN CORPUSCULAR HEMOGLOBIN 28 PG (25-34); MEAN CORPUSCULAR HGB CONC 35 G/DL (32-36); MEAN CORPUSCULAR VOLUME 82 FL (80-99); MEAN PLATELET VOLUME 10.1 FL (7.4-10.4); MONOCYTES # (AUTO) 0.6 X 10^3 (0.0-1.0); MONOCYTES % (AUTO) 5 % (0-12); NEUTROPHILS # (AUTO) 9.2 X 10^3 (1.8-7.8); NEUTROPHILS % (AUTO) 79 % (42-75); PLATELET COUNT 389 10^3/uL (130-400); RED CELL DISTRIBUTION WIDTH 14.6 % (10.0-14.5); WHITE BLOOD COUNT 11.7 10^3/uL (4.3-11.0)
[2019-01-01 22:01] LABS: ALANINE AMINOTRANSFERASE 51 U/L (0-55); ALBUMIN 4.9 GM/DL (3.2-4.5); ALKALINE PHOSPHATASE 167 U/L (40-136); BILIRUBIN,TOTAL 0.6 MG/DL (0.1-1.0); BUN/CREATININE RATIO 16; CALCIUM 9.8 MG/DL (8.5-10.1); CARBON DIOXIDE 20 MMOL/L (21-32); CHLORIDE 104 MMOL/L (98-107); CREATININE SERUM 0.79 MG/DL (0.60-1.30); GFR ESTIMATED > 60; GLUCOSE 134 MG/DL (70-105); POTASSIUM 3.9 MMOL/L (3.6-5.0); SODIUM 138 MMOL/L (135-145); TOTAL PROTEIN 9.2 GM/DL (6.4-8.2)
[2019-01-01] MEDS ORDERED: RX-HYDROCODONE/APAP 5/325 MG #4 TAB PK PO PRN (22:30)
[2019-01-01 22:31] LABS: BILIRUBIN,URINE NEGATIVE (NEGATIVE); COLOR,URINE YELLOW; GLUCOSE, URINE (UA) NEGATIVE (NEGATIVE); KETONES,URINE 2+ (NEGATIVE); LEUKOCYTE ESTERASE ,URINE NEGATIVE (NEGATIVE); NITRITE,URINE NEGATIVE (NEGATIVE); PH,URINE 8 (5-9); PROTEIN,URINE NEGATIVE (NEGATIVE); UROBILINOGEN,URINE NORMAL (NORMAL)
[2019-01-01] MEDS ORDERED: TAMS0.4C98 PO (22:36)
[2019-01-01] MEDS ORDERED: HYDR-4226 PO (22:36)
[2019-01-01] MEDS ORDERED: SULF1TAB35 PO (22:36)
[2019-01-01 22:38] LABS: CLARITY,URINE SL CLOUDY
[2019-01-01 22:39] LABS: BACTERIA,URINE TRACE /HPF; WBC,URINE RARE /HPF
[2019-01-01 22:40] LABS: AMORPHOUS SEDIMENT,UR MOD AMOR PHOSPHATE /LPF; SQUAMOUS EPITHELIAL CELL,UR 0-2 /HPF
[2019-01-01] MEDS ORDERED: ONDA8TAB13 PO (22:40)
[2019-01-01] MEDS ORDERED: cefTRIAXone FOR IV USE 1,000 MG in WATER (STERILE) FOR INJECTION 10 ML IV ONE (22:45)
[2019-01-01 23:00] VITALS: BP 149/115
--- NOTE | 2019-01-02 06:43 | Diagnostic Imaging Report ---
CLINICAL INDICATION: Patient right lower quadrant and suprapubic pain with hematuria x3 days. Patient has nausea and vomiting. EXAM: [facility] x-ray. COMPARISON: [facility] x-ray dated 05/11/2018. FINDINGS: There is a 5 mm calcification in the right upper pelvis region which may be within the distal right ureter or adjacent soft tissue. Otherwise stable calcifications overlying the pelvis which may represent phleboliths. There is a nonobstructed bowel gas pattern. There is no evidence of abdominal free air. The visualized bones and extra abdominal soft tissues are unremarkable. IMPRESSION: 1: A 5 mm calcification overlying the right upper pelvis which may be within the distal right ureter or adjacent soft tissue. CT scan of abdomen and pelvis would better evaluate. Dictated by: Dictated on workstation # [id number]
--- NOTE | 2019-01-02 08:18 | Diagnostic Imaging Report ---
PROCEDURE: CT urinary tract, rule out kidney stone. TECHNIQUE: Multiple contiguous axial images were obtained through the abdomen and pelvis without the use of intravenous contrast. Auto Exposure Controls were utilized during the CT exam to meet ALARA standards for radiation dose reduction. INDICATION: Right lower quadrant and suprapubic pain with hematuria, nausea and vomiting. Comparison is made with prior examination from 05/11/2018. FINDINGS: The heart size is normal. The lung bases are clear. The liver is normal size without focal lesions. The gallbladder is unremarkable. There is no biliary duct dilatation. The spleen is normal. Pancreas and adrenal glands are unremarkable. The left kidney is normal in appearance. There is persistent right hydronephrosis and hydroureter which appears to be secondary to a 6 mm stone in the distal right ureter few centimeter proximal to the right UVJ. The aorta is nonaneurysmal. Bowel gas pattern is nonspecific. Bladder is normal. There is no pelvic mass or adenopathy. The osseous structures are unremarkable. IMPRESSION: Persistent right hydronephrosis and hydroureter. There appears to be an obstructing stone in the distal ureter measuring 5-6 mm few centimeters proximal to the right UVJ. This is relatively unchanged when compared to the prior examination from May. Possibility of underlying stricture is also a consideration. Recommend clinical correlation and if warranted urologic consultation with retrograde urogram. No other acute abnormality in the abdomen or pelvis Dictated by: Dictated on workstation # [id number]
== END 2019-01-01 23:02 | disposition home or self-care (01) ==
LOC: EDUNIT# 21:20 → ER 21:22
DX: N13.2 Hydronephrosis with renal and ureteral calculous obstruction (principal); Z90.49 Acquired absence of other specified parts of digestive tract; Z90.89 Acquired absence of other organs; Z98.51 Tubal ligation status; Z88.0 Allergy status to penicillin; Z79.52 Long term (current) use of systemic steroids
CPT/HCPCS: 36415; 74018; 74176; 80053; 81000; 84703; 85025

== ENCOUNTER 2019-09-24 21:27 | Emergency (ER) | payer OTHER, MEDICAID ==
[~2019-09-24] VITALS: Ht 167 cm; Wt 90.7 kg
[~2019-09-24 21:27] MED LIST changes: +HYDR-4226 PO; +ONDA8TAB13 PO; +TMSL.4C PO
[2019-09-24 21:30] VITALS: BP 169/129
--- OUTSIDE RECORDS SUMMARY | 2019-09-24 21:34 | XMS REPORT | Continuity of Care Document ---
Author Organization Unknown Address Unknown Phone Unavailable Allergies Active Description Code Type Severity Reaction Onset Reported/Identified Relationship to Patient Clinical Status Yes amoxicillin [id number] Drug Aller gy Mild N/A 03/02/2018 Medications There is no data. Problems Date Dx Coded Attending Type Code Diagnosis Diagnosed By 03/22/2017 LOBO NERI MD Ot N20. 0 CALCULUS OF KIDNEY 03/22/2017 LOBO NERI MD Ot R10. 9 UNSPECIFIED ABDOMINAL PAIN 03/22/2017 LOBO NERI MD Ot Z87. 59 PERSONAL HISTORY OF COMP OF PREG, CHLDBR 03/22/2017 LOBO NERI MD Ot Z90. 49 ACQUIRED ABSENCE OF OTHER SPECIFIED PART 03/28/2017 LOBO NERI MD Ot N20. 0 CALCULUS OF KIDNEY 03/28/2017 LOBO NERI MD Ot R10. 9 UNSPECIFIED ABDOMINAL PAIN 03/28/2017 LOBO NERI MD Ot Z87. 59 PERSONAL HISTORY OF COMP OF PREG, CHLDBR 03/28/2017 LOBO NERI MD Ot Z90. 49 ACQUIRED ABSENCE OF OTHER SPECIFIED PART 04/01/2017 TALI MORGAN MONOTYPIST Ot N28.89 OTHER SPECIFIED DISORDERS OF KIDNEY AND 04/03/2017 TALI MORGAN MONOTYPIST Ot N20.0 CALCULUS OF KIDNEY 04/10/2017 TALI MORGAN MONOTYPIST Ot N28.89 OTHER SPECIFIED DISORDERS OF KIDNEY AND 05/02/2017 TALI MORGAN MONOTYPIST Ot N20.0 CALCULUS OF KIDNEY 07/05/2017 CATRACHITO FINKP Ot N92.0 EXCESSIVE AND FREQUENT MENSTRUATION WITH 07/05/2017 CATRACHITO FINKP Ot R10.11 RIGHT UPPER QUADRANT PAIN 07/05/2017 CATRACHITO FINKP Ot Z87.59 PERSONAL HISTORY OF COMP OF PREG, CHLDBR 07/05/2017 CATRACHITO FINK CONCRETE POLISHER Ot Z88.1 ALLERGY STATUS TO OTHER ANTIBIOTIC AGENT 07/05/2017 CATRACHITO FINKP Ot Z90.49 ACQUIRED ABSENCE OF OTHER SPECIFIED PART 07/05/2017 CATRACHITO FINKP Ot Z98.51 TUBAL LIGATION STATUS 07/07/2017 CATRACHITO FINKP Ot N92.0 EXCESSIVE AND FREQUENT MENSTRUATION WITH 07/07/2017 CATRACHITO FINKP Ot R10.11 RIGHT UPPER QUADRANT PAIN 07/07/2017 CATRACHITO FINKP Ot Z87.59 PERSONAL HISTORY OF COMP OF PREG, CHLDBR 07/07/2017 CATRACHITO FINKP Ot Z88.1 ALLERGY STATUS TO OTHER ANTIBIOTIC AGENT 07/07/2017 CATRACHITO FINKP Ot Z90.49 ACQUIRED ABSENCE OF OTHER SPECIFIED PART 07/07/2017 CATRACHITO FINKP Ot Z98.51 TUBAL LIGATION STATUS 02/02/2018 JIM VALDES MONOTYPIST Ot N63.11 UNSPECIFIED LUMP IN THE RIGHT BREAST, UP 02/02/2018 JIM VALDES MONOTYPIST Ot N63.13 UNSPECIFIED LUMP IN THE RIGHT BREAST, LO 02/12/2018 JIM VALDES MONOTYPIST Ot D24 .1 BENIGN NEOPLASM OF RIGHT BREAST 02/12/2018 JIM VALDES MONOTYPIST Ot N63.13 UNSPECIFIED LUMP IN THE RIGHT BREAST, LO 02/12/2018 JIM VALDES MONOTYPIST Ot N63.11 UNSPECIFIED LUMP IN THE RIGHT BREAST, UP 02/12/2018 RAYMOND VALDESTA Mera MONOTYPIST Ot N63.13 UNSPECIFIED LUMP IN THE RIGHT BREAST, LO 03/02/2018 MAYA OSHEA MD Ot 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 03/02/2018 MAYA OSHEA MD Ot J32.9 CHRONIC SINUSITIS, UNSPECIFIED 03/02/2018 MAYA OSHEA MD Ot R31.9 HEMATURIA, UNSPECIFIED 03/02/2018 MAYA OSHEA MD Ot R51 HEADACHE 03/02/2018 MAYA OSHEA MD Ot Z90.49 ACQUIRED ABSENCE OF OTHER SPECIFIED PART 03/02/2018 MAYA OSHEA MD Ot Z98.51 TUBAL LIGATION STATUS 03/02/2018 MAYA OSHEA MD Ot Z98.890 OTHER SPECIFIED POSTPROCEDURAL STATES 03/02/2018 TALI MORGAN MONOTYPIST Ot N20.0 CALCULUS OF KIDNEY 03/02/2018 TALI MORGAN MONOTYPIST Ot N28.89 OTHER SPECIFIED DISORDERS OF KIDNEY AND 03/02/2018 JIM VALDES Mera MONOTYPIST Ot N63.11 UNSPECIFIED LUMP IN THE RIGHT BREAST, UP 03/02/2018 JIM VALDES Mera MONOTYPIST Ot N63.13 UNSPECIFIED LUMP IN THE RIGHT BREAST, LO 03/02/2018 JIM VALDES Mera MONOTYPIST Ot D24 .1 BENIGN NEOPLASM OF RIGHT BREAST 03/02/2018 JIM VALDES Mera MONOTYPIST Ot N63.13 UNSPECIFIED LUMP IN THE RIGHT BREAST, LO 03/04/2018 MAYA OSHEA MD Ot 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 03/04/2018 MAYA OSHEA MD Ot J32.9 CHRONIC SINUSITIS, UNSPECIFIED 03/04/2018 MAYA OSHEA MD Ot R31.9 HEMATURIA, UNSPECIFIED 03/04/2018 MAYA OSHEA MD Ot R51 HEADACHE 03/04/2018 MAYA OSHEA MD Ot Z90.49 ACQUIRED ABSENCE OF OTHER SPECIFIED PART 03/04/2018 MAYA OSHEA MD Ot Z98.51 TUBAL LIGATION STATUS 03/04/2018 MAYA OSHEA MD Ot Z98.890 OTHER SPECIFIED POSTPROCEDURAL STATES 05/11/2018 BERNAWAIS TRAN Ot M54.5 LOW BACK PAIN 05/11/2018 AWAIS CLEMENT Ot N20.2 CALCULUS OF KIDNEY WITH CALCULUS OF URET 05/11/2018 AWAIS CLEMENT Ot Z88.0 ALLERGY STATUS TO PENICILLIN 05/11/2018 BERNCHELSEA AWAIS Ot Z90.49 ACQUIRED ABSENCE OF OTHER SPECIFIED PART 05/11/2018 BERNAWAIS TRAN Ot Z98.51 TUBAL LIGATION STATUS 05/11/2018 AWAIS CLEMENT Ot Z98.890 OTHER SPECIFIED POSTPROCEDURAL STATES 05/13/2018 BERNOTAWAIS Ot M54.5 LOW BACK PAIN 05/13/2018 BERNZELDA TRANIS Ot N20.2 CALCULUS OF KIDNEY WITH CALCULUS OF URET 05/13/2018 ZELDA CLEMENTIS Ot Z88.0 ALLERGY STATUS TO PENICILLIN 05/13/2018 ZELDA CLEMENTIS Ot Z90.49 ACQUIRED ABSENCE OF OTHER SPECIFIED PART 05/13/2018 BERNAWAIS TRAN Ot Z98.51 TUBAL LIGATION STATUS 05/13/2018 BERNCHELSEA AWAIS Ot Z98.890 OTHER SPECIFIED POSTPROCEDURAL STATES 11/21/2018 TALI MORGAN MONOTYPIST Ot N20.0 CALCULUS OF KIDNEY 11/21/2018 TALI MORGAN MONOTYPIST Ot N28.89 OTHER SPECIFIED DISORDERS OF KIDNEY AND 11/21/2018 RAYMOND VALDESSAKSHI Tesfaye MONOTYPIST Ot N63.11 UNSPECIFIED LUMP IN THE RIGHT BREAST, UP 11/21/2018 KING JIM D MONOTYPIST Ot N63.13 UNSPECIFIED LUMP IN THE RIGHT BREAST, LO 11/21/2018 RAYMOND VALDESTA Mera MONOTYPIST Ot D24 .1 BENIGN NEOPLASM OF RIGHT BREAST 11/21/2018 RAYMOND VALDESTA Mera MONOTYPIST Ot N63.13 UNSPECIFIED LUMP IN THE RIGHT BREAST, LO 11/21/2018 SCARLETT DO, PAZ K Ot J40 BRONCHITIS, NOT SPECIFIED ACUTE OR CH 11/21/2018 SCARLETT DO, PAZ K Ot R05 COUGH 11/21/2018 SCARLETT DO, PAZ K Ot Z88.1 ALLERGY STATUS TO OTHER ANTIBIOTIC AGENT 11/21/2018 SCARLETT DO, PAZ K Ot Z90.49 ACQUIRED ABSENCE OF OTHER SPECIFIED PART 11/21/2018 SCARLETT DO, PAZ K Ot Z90.89 ACQUIRED ABSENCE OF OTHER ORGANS 11/21/2018 SCARLETT DO, PAZ K Ot Z98.51 TUBAL LIGATION STATUS 11/24/2018 SCARLETT DO, PAZ K Ot J40 BRONCHITIS, NOT SPECIFIED ACUTE OR CH 11/24/2018 SCARLETT DO, PAZ K Ot R05 COUGH 11/24/2018 SCARLETT DO, PAZ K Ot Z88.1 ALLERGY STATUS TO OTHER ANTIBIOTIC AGENT 11/24/2018 SCARLETT DO, PAZ K Ot Z90.49 ACQUIRED ABSENCE OF OTHER SPECIFIED PART 11/24/2018 SCARLETT DO, PAZ K Ot Z90.89 ACQUIRED ABSENCE OF OTHER ORGANS 11/24/2018 SCARLETT DO, PAZ K Ot Z98.51 TUBAL LIGATION STATUS 01/01/2019 EDWARD RAMOS MONOTYPIST Ot N13 .2 HYDRONEPHROSIS WITH RENAL AND URETERAL C 01/01/2019 EDWARD RAMOS MONOTYPIST Ot R10 .9 UNSPECIFIED ABDOMINAL PAIN 01/01/2019 EDWARD RAMOS MONOTYPIST Ot 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 01/01/2019 EDWARD RAMOS MONOTYPIST Ot Z88 .0 ALLERGY STATUS TO PENICILLIN 01/01/2019 EDWARD RAMOS MONOTYPIST Ot Z90.49 ACQUIRED ABSENCE OF OTHER SPECIFIED PART 01/01/2019 EDWARD RAMOS MONOTYPIST Ot Z90.89 ACQUIRED ABSENCE OF OTHER ORGANS 01/01/2019 EDWARD RAMOS MONOTYPIST Ot Z98.51 TUBAL LIGATION STATUS 03/26/2019 TALI MORGAN MONOTYPIST Ot N20.0 CALCULUS OF KIDNEY 03/26/2019 TALI MORGAN MONOTYPIST Ot N28.89 OTHER SPECIFIED DISORDERS OF KIDNEY AND 03/26/2019 KING JIM D MONOTYPIST Ot N63.11 UNSPECIFIED LUMP IN THE RIGHT BREAST, UP 03/26/2019 LUCIO JIM D MONOTYPIST Ot N63.13 UNSPECIFIED LUMP IN THE RIGHT BREAST, LO 03/26/2019 RAYMOND VALDESSAKSHI Tesfaye MONOTYPIST Ot D24 .1 BENIGN NEOPLASM OF RIGHT BREAST 03/26/2019 JIM VALDES Mera MONOTYPIST Ot N63.13 UNSPECIFIED LUMP IN THE RIGHT BREAST, LO Procedures There is no data. Results Test Result Range Complete urinalysis with reflex to cultu re - 03/22/17 00:05 Urine color determination YELLOW NRG Urine clarity determination CLEAR NR G Urine pH measurement by test strip 6 5-9 Specific gravity of urine by test strip 1.020 1.016-1.022 Urine protein assay by test strip, semi-quantitative NEGATIVE NEGATIVE Urine glucose detection by automated test strip NE GATIVE NEGATIVE Erythrocytes detection in urine sediment by light micr oscopy 4+ NEGATIVE Urine ketones detection by automated test strip NE GATIVE NEGATIVE Urine nitrite detection by test strip NEGATIVE NEGATIVE Urine total bilirubin detection by test strip NEGA TIVE NEGATIVE Urine urobilinogen measurement by automated test strip (mass/volume) NORMAL NORMAL Urine leukocyte esterase detection by dipstick NEG ATIVE NEGATIVE Automated urine sediment erythrocyte cou nt by microscopy (number/high power field) [HPF] NRG Automated urine sediment leukocyte count by microscopy (number/high power field) NONE NRG Bacteria detection in urine sediment by light microsco py NEGATIVE NRG Squamous epithelial cells detection in u rine sediment by light microscopy 5-10 NRG Crystals detection in urine sediment by light microsco py NONE NRG Casts detection in urine sediment by light microscopy NONE NRG Mucus detection in urine sediment by light microscopy NEGATIVE NRG Complete urinalysis with reflex to culture NO NRG Urine beta human chorionic gonadotropin (hCG) measurement - 03/22/17 00:05 Urine beta human chorionic gonadotropin (hCG) measurem ent NEGATIVE NEGATIVE Complete blood count (CBC) with automate d white blood cell (WBC) differential - 07/05/17 15:57 Blood leukocytes automated count (number/volume) 6.5 10*3/uL 4.3-11.0 Blood erythrocytes automated count (number/volume) 4.63 10*6/uL 4.35-5.85 Venous blood hemoglobin measurement (mass/volume) 13.8 g/dL 11.5-16.0 Blood hematocrit (volume fraction) 39 % 35-52 Automated erythrocyte mean corpuscular volume 83 [ foz_us] 80-99 Automated erythrocyte mean corpuscular h emoglobin (mass per erythrocyte) 30 pg 25-34 Automated erythrocyte mean corpuscular h emoglobin concentration measurement (mass/volume) 36 g/dL 32-36 Automated erythrocyte distribution width ratio 13. 7 % 10.0- 14.5 Automated blood platelet count (count/volume) 326 10*3/uL 130-400 Automated blood platelet mean volume measurement 10.7 [foz_us] 7.4-10.4 Automated blood neutrophils/100 leukocytes 51 % 42-75 Automated blood lymphocytes/100 leukocytes 36 % 12-44 Blood monocytes/100 leukocytes 9 % 0-12 Automated blood eosinophils/100 leukocytes 3 % 0-10 Automated blood basophils/100 leukocytes 1 % 0-10 Blood neutrophils automated count (number/volume) 3.3 10*3 1.8-7.8 Blood lymphocytes automated count (number/volume) 2.3 10*3 1.0-4.0 Blood monocytes automated count (number/volume) 0. 6 10*3 0.0-1.0 Automated eosinophil count 0.2 10*3/uL 0 .0-0.3 Automated blood basophil count (count/volume) 0.0 10*3/uL 0.0-0.1 Comprehensive metabolic panel - 07/05/17 15:57 Serum or plasma sodium measurement (moles/volume) 138 mmol/L 135-145 Serum or plasma potassium measurement (moles/volume) 3.6 mmol/L 3.6-5.0 Serum or plasma chloride measurement (moles/volume) 107 mmol/L 98-107 Carbon dioxide 23 mmol/L 21-32 Serum or plasma anion gap determination (moles/volume) 8 mmol/L 5-14 Serum or plasma urea nitrogen measurement (mass/volume ) 9 mg/dL 7-18 Serum or plasma creatinine measurement (mass/volume) 0.65 mg/dL 0.60-1.30 Serum or plasma urea nitrogen/creatinine mass ratio 14 NRG Serum or plasma creatinine measurement w ith calculation of estimated glomerular filtration rate > NRG Serum or plasma glucose measurement (mass/volume) 104 mg/dL 70-105 Serum or plasma calcium measurement (mass/volume) 9.3 mg/dL 8.5-10.1 Serum or plasma total bilirubin measurement (mass/volu me) 0.4 mg/dL 0.1-1.0 Serum or plasma alkaline phosphatase pascual surement (enzymatic activity/volume) 125 U/L 40-136 Serum or plasma aspartate aminotransfera se measurement (enzymatic activity/volume) 26 U/L 5-34 Serum or plasma alanine aminotransferase measurement (enzymatic activity/volume) 30 U/L 0-55 Serum or plasma protein measurement (mass/volume) 7.3 g/dL 6.4-8.2 Serum or plasma albumin measurement (mass/volume) 4.5 g/dL 3.2-4.5 Complete urinalysis with reflex to cultu re - 07/05/17 16:10 Urine color determination YELLOW NRG Urine clarity determination VERY CLOUDY NRG Urine pH measurement by test strip 8 5-9 Specific gravity of urine by test strip 1.010 1.016-1.022 Urine protein assay by test strip, semi-quantitative NEGATIVE NEGATIVE Urine glucose detection by automated test strip NE GATIVE NEGATIVE Erythrocytes detection in urine sediment by light micr oscopy 1+ NEGATIVE Urine ketones detection by automated test strip NE GATIVE NEGATIVE Urine nitrite detection by test strip NEGATIVE NEGATIVE Urine total bilirubin detection by test strip NEGA TIVE NEGATIVE Urine urobilinogen measurement by automated test strip (mass/volume) NORMAL NORMAL Urine leukocyte esterase detection by dipstick NEG ATIVE NEGATIVE Automated urine sediment erythrocyte cou nt by microscopy (number/high power field) [HPF] NRG Automated urine sediment leukocyte count by microscopy (number/high power field) NONE NRG Bacteria detection in urine sediment by light microsco py TRACE NRG Squamous epithelial cells detection in u rine sediment by light microscopy RARE NRG Crystals detection in urine sediment by light microsco py NONE NRG Casts detection in urine sediment by light microscopy NONE NRG Mucus detection in urine sediment by light microscopy NEGATIVE NRG Complete urinalysis with reflex to culture NO NRG Amorphous sediment detection in urine sediment by ligh t microscopy LARGE SHERI PHOSPHATE NRG SUREPATH PAP RFX HPV mRNA E6/E7 - 15:30 CLINICAL INFORMATION: NRG LMP: 12/22/17 NRG PREV. PAP: NRG PREV. BX: NRG SOURCE: Cervix NRG STATEMENT OF ADEQUACY: NRG INTERPRETATION/RESULT: NRG DIAGNOSTIC IMAGING MANAGER: NRG COMMENT NRG CULTURE, GENITAL - 01/06/18 15:30 CULTURE, GENITAL SEE NOTE NRG Complete urinalysis with reflex to cultu re - 03/02/18 13:49 Urine color determination YELLOW NRG Urine clarity determination CLEAR NR G Urine pH measurement by test strip 7 5-9 Specific gravity of urine by test strip 1.015 1.016-1.022 Urine protein assay by test strip, semi-quantitative 2+ NEGATIVE Urine glucose detection by automated test strip NE GATIVE NEGATIVE Erythrocytes detection in urine sediment by light micr oscopy 5+ NEGATIVE Urine ketones detection by automated test strip NE GATIVE NEGATIVE Urine nitrite detection by test strip NEGATIVE NEGATIVE Urine total bilirubin detection by test strip NEGA TIVE NEGATIVE Urine urobilinogen measurement by automated test strip (mass/volume) NORMAL NORMAL Urine leukocyte esterase detection by dipstick 1+ NEGATIVE Automated urine sediment erythrocyte cou nt by microscopy (number/high power field) TNTC NRG Automated urine sediment leukocyte count by microscopy (number/high power field) NONE NRG Bacteria detection in urine sediment by light microsco py NEGATIVE NRG Squamous epithelial cells detection in u rine sediment by light microscopy RARE NRG Crystals detection in urine sediment by light microsco py NONE NRG Casts detection in urine sediment by light microscopy NONE NRG Mucus detection in urine sediment by light microscopy NEGATIVE NRG Complete urinalysis with reflex to culture NO NRG Complete blood count (CBC) with automate d white blood cell (WBC) differential - 03/02/18 13:54 Blood leukocytes automated count (number/volume) 6.7 10*3/uL 4.3-11.0 Blood erythrocytes automated count (number/volume) 4.75 10*6/uL 4.35-5.85 Venous blood hemoglobin measurement (mass/volume) 13.5 g/dL 11.5-16.0 Blood hematocrit (volume fraction) 39 % 35-52 Automated erythrocyte mean corpuscular volume 83 [ foz_us] 80-99 Automated erythrocyte mean corpuscular h emoglobin (mass per erythrocyte) 28 pg 25-34 Automated erythrocyte mean corpuscular h emoglobin concentration measurement (mass/volume) 34 g/dL 32-36 Automated erythrocyte distribution width ratio 14. 4 % 10.0- 14.5 Automated blood platelet count (count/volume) 369 10*3/uL 130-400 Automated blood platelet mean volume measurement 10.1 [foz_us] 7.4-10.4 Automated blood neutrophils/100 leukocytes 58 % 42-75 Automated blood lymphocytes/100 leukocytes 30 % 12-44 Blood monocytes/100 leukocytes 8 % 0-12 Automated blood eosinophils/100 leukocytes 3 % 0-10 Automated blood basophils/100 leukocytes 0 % 0-10 Blood neutrophils automated count (number/volume) 3.9 10*3 1.8-7.8 Blood lymphocytes automated count (number/volume) 2.0 10*3 1.0-4.0 Blood monocytes automated count (number/volume) 0. 5 10*3 0.0-1.0 Automated eosinophil count 0.2 10*3/uL 0 .0-0.3 Automated blood basophil count (count/volume) 0.0 10*3/uL 0.0-0.1 Comprehensive metabolic panel - 03/02/18 13:54 Serum or plasma sodium measurement (moles/volume) 138 mmol/L 135-145 Serum or plasma potassium measurement (moles/volume) 3.3 mmol/L 3.6-5.0 Serum or plasma chloride measurement (moles/volume) 103 mmol/L 98-107 Carbon dioxide 23 mmol/L 21-32 Serum or plasma anion gap determination (moles/volume) 12 mmol/L 5-14 Serum or plasma urea nitrogen measurement (mass/volume ) 7 mg/dL 7-18 Serum or plasma creatinine measurement (mass/volume) 0.64 mg/dL 0.60-1.30 Serum or plasma urea nitrogen/creatinine mass ratio 11 NRG Serum or plasma creatinine measurement w ith calculation of estimated glomerular filtration rate > NRG Serum or plasma glucose measurement (mass/volume) 105 mg/dL 70-105 Serum or plasma calcium measurement (mass/volume) 9.6 mg/dL 8.5-10.1 Serum or plasma total bilirubin measurement (mass/volu me) 0.7 mg/dL 0.1-1.0 Serum or plasma alkaline phosphatase pascual surement (enzymatic activity/volume) 129 U/L 40-136 Serum or plasma aspartate aminotransfera se measurement (enzymatic activity/volume) 18 U/L 5-34 Serum or plasma alanine aminotransferase measurement (enzymatic activity/volume) 25 U/L 0-55 Serum or plasma protein measurement (mass/volume) 8.2 g/dL 6.4-8.2 Serum or plasma albumin measurement (mass/volume) 4.5 g/dL 3.2-4.5 CALCIUM CORRECTED 9.2 mg/dL 8.5-10.1 Serum or plasma C reactive protein measu rement (mass/volume) - 03/02/18 13:54 Serum or plasma C reactive protein measurement (mass/v olume) 1.03 mg/dL 0.00-0.50 Urine beta human chorionic gonadotropin (hCG) measurement - 03/02/18 14:03 Urine beta human chorionic gonadotropin (hCG) measurem ent NEGATIVE NEGATIVE Streptococcus pyogenes antigen detection - 03/02/18 14:30 Streptococcus pyogenes antigen detection NEGATIVE NEGATIVE Influenza virus A and B antigen detectio n - 03/02/18 14:30 FLU RESULT NEGATIVE FOR INFLUENZA A AND B ANTIGENS BY [facility] Bacterial throat culture - 03/02/18 14:3 0 Bacterial throat culture [facility] Complete urinalysis with reflex to cultu re - 05/11/18 20:30 Urine color determination YELLOW NRG Urine clarity determination VERY CLOUDY NR Urine pH measurement by test strip 8 5-9 Specific gravity of urine by test strip 1.015 1.016-1.022 Urine protein assay by test strip, semi-quantitative NEGATIVE NEGATIVE Urine glucose detection by automated test strip NE GATIVE NEGATIVE Erythrocytes detection in urine sediment by light micr oscopy 4+ NEGATIVE Urine ketones detection by automated test strip 1+ NEGATIVE Urine nitrite detection by test strip NEGATIVE NEGATIVE Urine total bilirubin detection by test strip NEGA TIVE NEGATIVE Urine urobilinogen measurement by automated test strip (mass/volume) NORMAL NORMAL Urine leukocyte esterase detection by dipstick NEG ATIVE NEGATIVE Automated urine sediment erythrocyte cou nt by microscopy (number/high power field) [HPF] NRG Automated urine sediment leukocyte count by microscopy (number/high power field) NONE NRG Bacteria detection in urine sediment by light microsco py NONE NRG Squamous epithelial cells detection in u rine sediment by light microscopy 2-5 NRG Crystals detection in urine sediment by light microsco py PRESENT NRG Casts detection in urine sediment by light microscopy NONE NRG Mucus detection in urine sediment by light microscopy NEGATIVE NRG Complete urinalysis with reflex to culture NO NRG Amorphous sediment detection in urine sediment by ligh t microscopy MOD SHERI PHOSPHATE NRG Complete blood count (CBC) with automate d white blood cell (WBC) differential - 05/11/18 20:38 Blood leukocytes automated count (number/volume) 7.9 10*3/uL 4.3-11.0 Blood erythrocytes automated count (number/volume) 4.83 10*6/uL 4.35-5.85 Venous blood hemoglobin measurement (mass/volume) 13.8 g/dL 11.5-16.0 Blood hematocrit (volume fraction) 40 % 35-52 Automated erythrocyte mean corpuscular volume 83 [ foz_us] 80-99 Automated erythrocyte mean corpuscular h emoglobin (mass per erythrocyte) 29 pg 25-34 Automated erythrocyte mean corpuscular h emoglobin concentration measurement (mass/volume) 34 g/dL 32-36 Automated erythrocyte distribution width ratio 14. 1 % 10.0- 14.5 Automated blood platelet count (count/volume) 350 10*3/uL 130-400 Automated blood platelet mean volume measurement 10.0 [foz_us] 7.4-10.4 Automated blood neutrophils/100 leukocytes 68 % 42-75 Automated blood lymphocytes/100 leukocytes 23 % 12-44 Blood monocytes/100 leukocytes 6 % 0-12 Automated blood eosinophils/100 leukocytes 2 % 0-10 Automated blood basophils/100 leukocytes 1 % 0-10 Blood neutrophils automated count (number/volume) 5.4 10*3 1.8-7.8 Blood lymphocytes automated count (number/volume) 1.8 10*3 1.0-4.0 Blood monocytes automated count (number/volume) 0. 5 10*3 0.0-1.0 Automated eosinophil count 0.1 10*3/uL 0 .0-0.3 Automated blood basophil count (count/volume) 0.1 10*3/uL 0.0-0.1 Serum or plasma choriogonadotropin (preg dorie test) detection - 05/11/18 20:38 Serum or plasma choriogonadotropin ( test) de tection NEGATIVE NEGATIVE Comprehensive metabolic panel - 05/11/18 20:38 Serum or plasma sodium measurement (moles/volume) 142 mmol/L 135-145 Serum or plasma potassium measurement (moles/volume) 3.5 mmol/L 3.6-5.0 Serum or plasma chloride measurement (moles/volume) 105 mmol/L 98-107 Carbon dioxide 23 mmol/L 21-32 Serum or plasma anion gap determination (moles/volume) 14 mmol/L 5-14 Serum or plasma urea nitrogen measurement (mass/volume ) 9 mg/dL 7-18 Serum or plasma creatinine measurement (mass/volume) 0.69 mg/dL 0.60-1.30 Serum or plasma urea nitrogen/creatinine mass ratio 13 NRG Serum or plasma creatinine measurement w ith calculation of estimated glomerular filtration rate > NRG Serum or plasma glucose measurement (mass/volume) 120 mg/dL 70-105 Serum or plasma calcium measurement (mass/volume) 9.9 mg/dL 8.5-10.1 Serum or plasma total bilirubin measurement (mass/volu me) 0.4 mg/dL 0.1-1.0 Serum or plasma alkaline phosphatase pascual surement (enzymatic activity/volume) 123 U/L 40-136 Serum or plasma aspartate aminotransfera se measurement (enzymatic activity/volume) 32 U/L 5-34 Serum or plasma alanine aminotransferase measurement (enzymatic activity/volume) 45 U/L 0-55 Serum or plasma protein measurement (mass/volume) 8.6 g/dL 6.4-8.2 Serum or plasma albumin measurement (mass/volume) 4.8 g/dL 3.2-4.5 Lipase - 05/11/18 20:38 Lipase 11 U/L 8-78 Serum or plasma amylase measurement (enz ymatic activity/volume) - 05/11/18 20:38 Serum or plasma amylase measurement (enzymatic activit y/volume) 33 U/L 25-125 CMP - 07/31/18 11:58 GLUCOSE 94 mg/dL 65-99 UREA NITROGEN (BUN) 7 mg/dL 7-25 CREATININE 0.51 mg/dL 0.50-1.10 eGFR NON-AFR. PRYDEINIG 130 mL/min/1.73m2 > OR = 60 eGFR 151 mL/min/1.73m2 > OR = 60 BUN/CREATININE RATIO NOT APPLICABLE (calc) 6-22 SODIUM 138 mmol/L 135-146 POTASSIUM 3.9 mmol/L 3.5-5.3 CHLORIDE 106 mmol/L 98-110 CARBON DIOXIDE 22 mmol/L 20-32 CALCIUM 9.3 mg/dL 8.6-10.2 PROTEIN, TOTAL 7.7 g/dL 6.1-8.1 ALBUMIN 4.6 g/dL 3.6-5.1 GLOBULIN 3.1 g/dL (calc) 1.9-3.7 ALBUMIN/GLOBULIN RATIO 1.5 (calc) 1.0-2. 5 BILIRUBIN, TOTAL 0.6 mg/dL 0.2-1.2 ALKALINE PHOSPHATASE 114 U/L 33-115 AST 27 U/L 10-30 ALT 26 U/L 6-29 TSH - 07/31/18 11:58 TSH 2.54 mIU/L NRG Complete blood count (CBC) with automate d white blood cell (WBC) differential - 01/01/19 21:37 Blood leukocytes automated count (number/volume) 11.7 10*3/uL 4.3-11.0 Blood erythrocytes automated count (number/volume) 4.99 10*6/uL 4.35-5.85 Venous blood hemoglobin measurement (mass/volume) 14.1 g/dL 11.5-16.0 Blood hematocrit (volume fraction) 41 % 35-52 Automated erythrocyte mean corpuscular volume 82 [ foz_us] 80-99 Automated erythrocyte mean corpuscular h emoglobin (mass per erythrocyte) 28 pg 25-34 Automated erythrocyte mean corpuscular h emoglobin concentration measurement (mass/volume) 35 g/dL 32-36 Automated erythrocyte distribution width ratio 14. 6 % 10.0- 14.5 Automated blood platelet count (count/volume) 389 10*3/uL 130-400 Automated blood platelet mean volume measurement 10.1 [foz_us] 7.4-10.4 Automated blood neutrophils/100 leukocytes 79 % 42-75 Automated blood lymphocytes/100 leukocytes 15 % 12-44 Blood monocytes/100 leukocytes 5 % 0-12 Automated blood eosinophils/100 leukocytes 1 % 0-10 Automated blood basophils/100 leukocytes 0 % 0-10 Blood neutrophils automated count (number/volume) 9.2 10*3 1.8-7.8 Blood lymphocytes automated count (number/volume) 1.8 10*3 1.0-4.0 Blood monocytes automated count (number/volume) 0. 6 10*3 0.0-1.0 Automated eosinophil count 0.1 10*3/uL 0 .0-0.3 Automated blood basophil count (count/volume) 0.0 10*3/uL 0.0-0.1 Serum or plasma choriogonadotropin (preg dorie test) detection - 01/01/19 21:37 Serum or plasma choriogonadotropin ( test) de tection NEGATIVE NEGATIVE Comprehensive metabolic panel - 01/01/19 21:37 Serum or plasma sodium measurement (moles/volume) 138 mmol/L 135-145 Serum or plasma potassium measurement (moles/volume) 3.9 mmol/L 3.6-5.0 Serum or plasma chloride measurement (moles/volume) 104 mmol/L 98-107 Carbon dioxide 20 mmol/L 21-32 Serum or plasma anion gap determination (moles/volume) 14 mmol/L 5-14 Serum or plasma urea nitrogen measurement (mass/volume ) 13 mg/dL 7-18 Serum or plasma creatinine measurement (mass/volume) 0.79 mg/dL 0.60-1.30 Serum or plasma urea nitrogen/creatinine mass ratio 16 NRG Serum or plasma creatinine measurement w ith calculation of estimated glomerular filtration rate > NRG Serum or plasma glucose measurement (mass/volume) 134 mg/dL 70-105 Serum or plasma calcium measurement (mass/volume) 9.8 mg/dL 8.5-10.1 Serum or plasma total bilirubin measurement (mass/volu me) 0.6 mg/dL 0.1-1.0 Serum or plasma alkaline phosphatase pascual surement (enzymatic activity/volume) 167 U/L 40-136 Serum or plasma aspartate aminotransfera se measurement (enzymatic activity/volume) 45 U/L 5-34 Serum or plasma alanine aminotransferase measurement (enzymatic activity/volume) 51 U/L 0-55 Serum or plasma protein measurement (mass/volume) 9.2 g/dL 6.4-8.2 Serum or plasma albumin measurement (mass/volume) 4.9 g/dL 3.2-4.5 Complete urinalysis with reflex to cultu re - 01/01/19 22:25 Urine color determination YELLOW NRG Urine clarity determination SL CLOUDY N RG Urine pH measurement by test strip 8 5-9 Specific gravity of urine by test strip 1.015 1.016-1.022 Urine protein assay by test strip, semi-quantitative NEGATIVE NEGATIVE Urine glucose detection by automated test strip NE GATIVE NEGATIVE Erythrocytes detection in urine sediment by light micr oscopy 3+ NEGATIVE Urine ketones detection by automated test strip 2+ NEGATIVE Urine nitrite detection by test strip NEGATIVE NEGATIVE Urine total bilirubin detection by test strip NEGA TIVE NEGATIVE Urine urobilinogen measurement by automated test strip (mass/volume) NORMAL NORMAL Urine leukocyte esterase detection by dipstick NEG ATIVE NEGATIVE Automated urine sediment erythrocyte cou nt by microscopy (number/high power field) [HPF] NRG Automated urine sediment leukocyte count by microscopy (number/high power field) RARE NRG Bacteria detection in urine sediment by light microsco py TRACE NRG Squamous epithelial cells detection in u rine sediment by light microscopy 0-2 NRG Crystals detection in urine sediment by light microsco py PRESENT NRG Casts detection in urine sediment by light microscopy NONE NRG Mucus detection in urine sediment by light microscopy NEGATIVE NRG Complete urinalysis with reflex to culture NO NRG Amorphous sediment detection in urine sediment by ligh t microscopy MOD SHERI PHOSPHATE NRG Encounters ACCT No. Visit Date/Time Discharge Status Pt. Type Provider Facility Loc./Unit Complaint [id number] 09/21/2019 13:30:00 09/21/2019 23:59: 59 [facility] Outpatient JIM VALDES [facility] [id number] 07/31/2018 11:20:00 Document Registration [id number] 01/06/2018 13:20:00 Document Registration [id number] 01/01/2019 21:22:00 019 23:02:00 DIS Emergency EDWARD RAMOS MONOTYPIST [facility] ER ABD PAIN, RT SIDE NUMBN ESS [id number] 11/21/2018 02:14:00 019 03:13:00 DIS Emergency PAZ PANTOJA DO a [facility] ER POSS BRONCHITIS, STS SH MONO PAINS ON RT SIDE [id number] 05/11/2018 19:09:00 019 22:38:00 DIS Emergency AWAIS CLEMENT [facility] ER LOWER BACK PAIN,UNABLE TO URINATE,VOMITING [id number] 03/02/2018 12:52:00 018 17:28:00 DIS Emergency DORIE CARBAJAL, MAYA Tesfaye [facility] ER HEADACHE,URINAT ING BLOOD [id number] 02/09/2018 11:50:00 018 23:59:59 CLS Outpatient JIM VALDES MONOTYPIST [facility] RAD BREAST LUMP IN LOWER IN NER QUADRANT [id number] 01/28/2018 08:10:00 23:59:59 CLS Outpatient JIM VALDES MONOTYPIST [facility] RAD BREAST LUMP IN LOWER IN NER QUADRANT [id number] 07/05/2017 15:39:00 018 18:34:00 DIS Emergency CATRACHITO FINK CONCRETE POLISHER [facility] ER PAIN IN RIGHT SIDE/CRAM PS [id number] 03/26/2017 10:54:00 017 23:59:59 CLS Outpatient TALI MORGAN MONOTYPIST [facility] RAD N28.89 OTHER SP ECIFIED DISORDERS OF KIDNEY [id number] 03/22/2017 00:00:00 017 01:55:00 DIS Emergency LOBO NERI MD [facility] ER RT SIDE PAIN,POSS KIDNE Y STONE [id number] 03/17/2017 14:35:00 017 23:59:59 CLS Outpatient TALI MORGAN MONOTYPIST [facility] RAD RIGHT FLANK FERDINAND N [id number] 09/24/2019 21:29:[address] Emergency EDWARD RAMOS MONOTYPIST [facility] ER L FOOT PAIN
--- NOTE | 2019-09-24 21:37 | ED Lower Extremity ---
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 Onset: just prior to arrival Severity: moderate Pain/Injury Location: left foot Method of Injury: direct blow Modifying Factors: Worse With Movement Allergies and Home Medications Allergies Coded Allergies: amoxicillin (Verified Allergy, Mild, 03/02/18) Home Medications Benzonatate 100 Mg Capsule, 1-2 TAB PO TID Prescribed by: PAZ PANTOJA on 11/21/18 030 Cefdinir 300 Mg Capsule, 300 MG PO BID Prescribed by: MAYA OSHEA on 03/02/18 1644 Cefdinir 300 Mg Capsule, 300 MG PO BID Prescribed by: PAZ PANTOJA on 11/21/18 030 Guaifenesin/Dextromethorphan 1 Each Tbmp.12hr, 1 EACH PO BID Prescribed by: PAZ PANTOJA on 11/21/18 030 Hydrocodone Bit/Acetaminophen 1 Each Tablet, 1 EACH PO Q6H PRN for BREAKTHROUGH PAIN Prescribed by: LOBO NERI on 03/22/17 0153 Hydrocodone Bit/Acetaminophen 1 Tab Tab, 1 EACH PO Q4-6HR PRN for PAIN-MODERATE Prescribed by: MAYA OSHEA on 03/02/18 1644 Hydrocodone Bit/Acetaminophen 1 Tab Tab, 1 EACH PO Q4-6HR PRN for PAIN-MODERATE Prescribed by: AWAIS CLEMENT on 05/11/18 2220 Hydrocodone/Acetaminophen 1 Each Tablet, 1 TAB PO Q4-6HR Prescribed by: EDWARD RAMOS on 01/01/19 2236 Methylprednisolone 4 Mg Tab.ds.pk, 4 MG PO UD Prescribed by: PAZ PANTOJA on 11/21/18 030 Ondansetron 4 Mg Tab.rapdis, 4 MG PO Q6H PRN for NAUSEA/VOMITING Prescribed by: MAYA OSHEA on 03/02/18 1720 Ondansetron 8 Mg Tab.rapdis, 8 MG PO Q6H PRN for NAUSEA/VOMITING Prescribed by: EDWARD RAMOS on 01/01/19 2240 Sulfamethoxazole/Trimethoprim 1 Each Tablet, 1 EACH PO BID Prescribed by: AWAIS CLEMENT on 05/11/182219 Sulfamethoxazole/Trimethoprim 1 Each Tablet, 1 EACH PO BID Prescribed by: EDWARD RAMOS on 01/01/192235 Tamsulosin HCl 0.4 Mg Cap, 0.4 MG PO DAILY Prescribed by: EDWARD RAMOS on 01/01/192235 Patient Home Medication List Home Medication List Reviewed: Yes Review of Systems Constitutional: see HPI EENTM: see HPI Respiratory: no symptoms reported Cardiovascular: no symptoms reported Musculoskeletal: see HPI Skin: no symptoms reported Psychiatric/Neurological: No Symptoms Reported Past Qzyjicw-Jbbhte-Pxudwi Hx Patient Social History Alcohol Beverage of Choice: Beer 2nd Hand Smoke Exposure: No Recent Foreign Travel: No Contact w/Someone Who Travel: No Recent Hopitalizations: No Immunizations Up To Date Tetanus Booster (TDap): Unknown Seasonal Allergies Seasonal Allergies: No Past Medical History Surgeries: Yes ("MASS REMOVED UNDER RIGHT BREAST" IN APR OR MAY 2018; X 2) Appendectomy, Section, Tonsillectomy, Tubal Ligation Respiratory: No Cardiac: No Neurological: No 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 0oz. 87.270403qg; 31.00 BMI Method:Stated General Appearance: WD/WN, no apparent distress Neck: non-tender, full range of motion Hips: bilateral hip non-tender, bilateral hip normal inspection, bilateral hip normal range of motion Legs: bilateral leg non-tender, bilateral leg normal inspection, bilateral leg normal range of motion Knees: bilateral knee non-tender, bilateral knee normal inspection, bilateral knee normal range of motion Ankles: bilateral ankle non-tender, bilateral ankle normal inspection, bilateral ankle normal range of motion Feet: left foot other (there is a small very firm dime-sized nodule to the dorsal aspect of the midfoot on the left. The overlying skin is normal in appearance without erythema or ecchymosis. I suspect this is just a ganglion cyst that she noticed when her foot was struck with the pole at work) Neurologic/Psychiatric: alert, normal mood/affect, oriented x 3 Skin: normal color, warm/dry Progress/Results/Core Measures Results/Orders My Orders Orders - EDWARD RAMOS APRN Foot, Left, 3 Views (09/24/19 21:34) Departure Communication (Admissions) I gave her 2 options, one being observation. She could go home Tylenol Motrin rest and this may resolve on its own. Option two is to numb this up and aspirate it. She has to go back to work tomorrow and would prefer to aspirate this. I cleansed the area with Betadine swabs which were allowed to dry, injected with buffered 1% lidocaine totaling 0.25 mL, then inserted an 18-gauge needle into this and was able to aspirate a very small amount of jelly substance bloody material. Impression Primary Impression: Ganglion cyst Disposition: 01 HOME, SELF-CARE Condition: Stable Departure-Patient Inst. Decision time for Depature: 21:39 Referrals: [facility] (PCP/Family) Primary Care Physician Patient Instructions: Ganglion Cyst Add. Discharge Instructions: 1. Follow-up with your doctor next week. Return to ER for any worsening. Go home and elevate the foot, but an ice pack on it and pain medication as directed. EDWARD RAMOS APRN Sep 24, 2019 21:37
[2019-09-24] MEDS ORDERED: RX-HYDROCODONE/APAP 5/325 MG #4 TAB PK PO PRN (22:00)
--- NOTE | 2019-09-24 22:11 | Diagnostic Imaging Report ---
INDICATION: Foot pain. EXAMINATION: Left foot at 9:52 p.m. Three views were obtained. COMPARISON: There is no prior study available for comparison. FINDINGS: There is no fracture, dislocation or acute bony abnormality evident. The Lisfranc joint seems well maintained. There is a calcaneal spur. The soft tissues are unremarkable. IMPRESSION: There is no evidence for an acute bony abnormality. Dictated by: Dictated on workstation # [id number]
== END 2019-09-24 22:20 | disposition home or self-care (01) ==
LOC: EDUNIT# 21:27 → ER 21:29
DX: M67.472 Ganglion, left ankle and foot (principal); Z88.0 Allergy status to penicillin; Z79.52 Long term (current) use of systemic steroids; W22.8XXA Striking against or struck by other objects, initial encounter; W18.49XA Other slipping, tripping and stumbling without falling, initial encounter; Y92.59 Other trade areas as the place of occurrence of the external cause
CPT/HCPCS: 73630

== ENCOUNTER 2019-12-22 18:39 | Emergency (ER) | payer MEDICAID, OTHER ==
[~2019-12-22] VITALS: Ht 66 cm; Wt 90.0 kg
[2019-12-22 19:08] LABS: BASOPHILS % (AUTO) 0 % (0-10); EOSINOPHILS # (AUTO) 0.2 10^3/uL (0.0-0.3); EOSINOPHILS % (AUTO) 3 % (0-10); HEMATOCRIT 40 % (35-52); HEMOGLOBIN 13.8 G/DL (11.5-16.0); LYMPHOCYTES # (AUTO) 2.3 X 10^3 (1.0-4.0); LYMPHOCYTES % (AUTO) 27 % (12-44); MEAN CORPUSCULAR HEMOGLOBIN 28 PG (25-34); MEAN CORPUSCULAR HGB CONC 35 G/DL (32-36); MEAN CORPUSCULAR VOLUME 81 FL (80-99); MONOCYTES # (AUTO) 0.8 X 10^3 (0.0-1.0); MONOCYTES % (AUTO) 9 % (0-12); NEUTROPHILS # (AUTO) 5.1 X 10^3 (1.8-7.8); NEUTROPHILS % (AUTO) 61 % (42-75); PLATELET COUNT 391 10^3/uL (130-400); WHITE BLOOD COUNT 8.4 10^3/uL (4.3-11.0)
[2019-12-22 19:13] LABS: ALBUMIN 4.6 GM/DL (3.2-4.5); CHLORIDE 104 MMOL/L (98-107); POTASSIUM 3.6 MMOL/L (3.6-5.0); SODIUM 136 MMOL/L (135-145)
[2019-12-22 19:14] LABS: CALCIUM 9.1 MG/DL (8.5-10.1); INR 1.1 (0.8-1.4); PROTHROMBIN TIME PATIENT 14.5 SEC (12.2-14.7)
[2019-12-22] MEDS ORDERED: KETOROLAC 30 MG/ML VIAL IVP STA (19:14)
[2019-12-22 19:15] LABS: GLUCOSE 106 MG/DL (70-105); TOTAL PROTEIN 8.3 GM/DL (6.4-8.2)
[2019-12-22] MEDS ORDERED: meTOprolol TARTRATE 50 MG (LOPRESSOR) TAB PO ONE (19:15)
[2019-12-22] MEDS ORDERED: NS IV 1000 ML 0 ML ONE (19:15)
[2019-12-22] MEDS ORDERED: ASPIRIN 81 MG CHEW (CHILDREN'S ASA) PO ONE (19:15)
[2019-12-22 19:16] LABS: CARBON DIOXIDE 20 MMOL/L (21-32)
[2019-12-22 19:17] LABS: BILIRUBIN,TOTAL 0.5 MG/DL (0.1-1.0)
[2019-12-22 19:19] LABS: ALKALINE PHOSPHATASE 132 U/L (40-136); CREATININE SERUM 0.72 MG/DL (0.60-1.30); GFR ESTIMATED > 60
[2019-12-22 19:20] LABS: BUN/CREATININE RATIO 14
[2019-12-22 19:22] LABS: ALANINE AMINOTRANSFERASE 34 U/L (0-55); MAGNESIUM 1.9 MG/DL (1.6-2.4)
--- NOTE | 2019-12-22 19:22 | ED Chest Pain ---
General Chief Complaint: Chest Pain Stated Complaint: CHEST PAIN Source: patient Exam Limitations: no limitations History of Present Illness Date Seen by Provider: Dec 22, 2019 Time Seen by Provider: 19:07 Initial Comments Here with report of central chest pain that is lower and left sided and radiates across the low left side of the chest. Feels short of breath and sharp pain in the chest with tightness. She was wearing her mask at work and then had to go outside and change mask and that helped some and then she sat in front of an air conditioner and that helped some but the pain continues. She was noted to be hypertensive on arrival and admits that she has history of high blood pressure but is not on meds. No recent illness. Denies nausea, vomiting or diarrhea. Denies known contact with [employer] but does work at the [employer]. Timing/Duration: 1 hour Severity/Quality: moderate Location: central Radiation: other (cross left-sided chest) Prior CP/Workup: no prior cardiac workup Modifying Factors: improves with rest ASA po SENSOR OPERATOR: No NTG SL SENSOR OPERATOR: No Associated Symptoms: No back pain, No diaphoresis, No dizziness, No edema, No fever/chills, No nausea/vomiting; shortness of breath; No weakness Allergies and Home Medications Allergies Coded Allergies: amoxicillin (Verified Allergy, Mild, 03/02/18) Home Medications Benzonatate 100 Mg Capsule, 1-2 TAB PO TID Prescribed by: PAZ PANTOJA on 11/21/18305 Cefdinir 300 Mg Capsule, 300 MG PO BID Prescribed by: MAYA OSHEA on 03/02/18 1644 Cefdinir 300 Mg Capsule, 300 MG PO BID Prescribed by: PAZ PANTOJA on 11/21/18 030 Guaifenesin/Dextromethorphan 1 Each Tbmp.12hr, 1 EACH PO BID Prescribed by: PAZ PANTOJA on 11/21/18 030 Hydrocodone Bit/Acetaminophen 1 Each Tablet, 1 EACH PO Q6H PRN for BREAKTHROUGH PAIN Prescribed by: LOBO NERI on 03/22/17 0153 Hydrocodone Bit/Acetaminophen 1 Tab Tab, 1 EACH PO Q4-6HR PRN for PAIN-MODERATE Prescribed by: MAYA OSHEA on 03/02/18 1644 Hydrocodone Bit/Acetaminophen 1 Tab Tab, 1 EACH PO Q4-6HR PRN for PAIN-MODERATE Prescribed by: AWAIS CLEMENT on 05/11/182219 Hydrocodone/Acetaminophen 1 Each Tablet, 1 TAB PO Q4-6HR Prescribed by: EDWARD RAMOS on 01/01/192235 Methylprednisolone 4 Mg Tab.ds.pk, 4 MG PO UD Prescribed by: PAZ PANTOJA on 11/21/18 0306 Ondansetron 4 Mg Tab.rapdis, 4 MG PO Q6H PRN for NAUSEA/VOMITING Prescribed by: MAYA OSHEA on 03/02/18 1720 Ondansetron 8 Mg Tab.rapdis, 8 MG PO Q6H PRN for NAUSEA/VOMITING Prescribed by: EDWARD RAMOS on 01/01/19 224 Sulfamethoxazole/Trimethoprim 1 Each Tablet, 1 EACH PO BID Prescribed by: AWAIS CLEMENT on 05/11/182219 Sulfamethoxazole/Trimethoprim 1 Each Tablet, 1 EACH PO BID Prescribed by: EDWARD RAMOS on 01/01/192235 Tamsulosin HCl 0.4 Mg Cap, 0.4 MG PO DAILY Prescribed by: EDWARD RAMOS on 01/01/192235 Patient Home Medication List Home Medication List Reviewed: Yes Review of Systems Review of Systems Constitutional: see HPI; No chills, No fever EENTM: No Symptoms Reported Respiratory: Denies Cough; Shortness of Air Cardiovascular: Chest Pain; Denies Lightheadedness Gastrointestinal: Denies Diarrhea, Denies Nausea Genitourinary: No Symptoms Reported Musculoskeletal: no symptoms reported Skin: no symptoms reported Psychiatric/Neurological: No Symptoms Reported All Other Systems Reviewed Negative Unless Noted: Yes Past Yndtizo-Jnyrmi-Mrwntq Hx Past Med/Social Hx: Reviewed Nursing Past Med/Soc Hx Patient Social History Alcohol Use: Occasionally Uses Alcohol Beverage of Choice: Beer 2nd Hand Smoke Exposure: No Recent Foreign Travel: No Contact w/Someone Who Travel: No Recent Hopitalizations: No Immunizations Up To Date Tetanus Booster (TDap): Unknown Seasonal Allergies Seasonal Allergies: No Past Medical History Surgeries: Yes ("MASS REMOVED UNDER RIGHT BREAST" IN APR OR MAY 2018; X 2) Appendectomy, Section, Tonsillectomy, Tubal Ligation Respiratory: No Cardiac: No Neurological: No 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 0oz. 87.377745bp; 32.00 BMI Method:Stated General Appearance: No Apparent Distress, WD/WN HEENT: PERRL/EOMI, Pharynx Normal Neck: Non Tender, Supple Respiratory: Lungs Clear, Normal Breath Sounds Cardiovascular: No Murmur, Tachycardia Gastrointestinal: Non Tender, Soft Extremity: Normal Range of Motion, Non Tender Neurologic/Psychiatric: Alert, Oriented x3 Skin: Normal Color, Warm/Dry Progress/Results/Core Measures Results/Orders Lab Results Laboratory Tests Test 12/22/19 18:58 Range/Units White Blood Count 8.4 4.3-11.0 10^3/uL Red Blood Count 4.87 4.35-5.85 10^6/uL Hemoglobin 13.8 11.5-16.0 G/DL Hematocrit 40 35-52 % Mean Corpuscular Volume 81 80-99 FL Mean Corpuscular Hemoglobin 28 25-34 PG Mean Corpuscular Hemoglobin Concent 35 32-36 G/DL Red Cell Distribution Width 14.5 10.0-14.5 % Platelet Count 391 130-400 10^3/uL Mean Platelet Volume 10.0 7.4-10.4 FL Neutrophils (%) (Auto) 61 42-75 % Lymphocytes (%) (Auto) 27 12-44 % Monocytes (%) (Auto) 9 0-12 % Eosinophils (%) (Auto) 3 0-10 % Basophils (%) (Auto) 0 0-10 % Neutrophils # (Auto) 5.1 1.8-7.8 X 10^3 Lymphocytes # (Auto) 2.3 1.0-4.0 X 10^3 Monocytes # (Auto) 0.8 0.0-1.0 X 10^3 Eosinophils # (Auto) 0.2 0.0-0.3 10^3/uL Basophils # (Auto) 0.0 0.0-0.1 10^3/uL Prothrombin Time 14.5 12.2-14.7 SEC INR Comment 1.1 0.8-1.4 Activated Partial Thromboplast Time 33 24-35 SEC D-Dimer 0.40 0.00-0.49 UG/ML Sodium Level 136 135-145 MMOL/L Potassium Level 3.6 3.6-5.0 MMOL/L Chloride Level 104 98-107 MMOL/L Carbon Dioxide Level 20 L 21-32 MMOL/L Anion Gap 12 5-14 MMOL/L Blood Urea Nitrogen 10 7-18 MG/DL Creatinine 0.72 0.60-1.30 MG/DL Estimat Glomerular Filtration Rate > 60 BUN/Creatinine Ratio 14 Glucose Level 106 H 70-105 MG/DL Calcium Level 9.1 8.5-10.1 MG/DL Corrected Calcium 8.5-10.1 MG/DL Magnesium Level 1.9 1.6-2.4 MG/DL Total Bilirubin 0.5 0.1-1.0 MG/DL Aspartate Amino Transf (AST/SGOT) 23 5-34 U/L Alanine Aminotransferase (ALT/SGPT) 34 0-55 U/L Alkaline Phosphatase 132 40-136 U/L Myoglobin 26.4 10.0-92.0 NG/ML Troponin I < 0.028 <0.028 NG/ML Total Protein 8.3 H 6.4-8.2 GM/DL Albumin 4.6 H 3.2-4.5 GM/DL My Orders Orders - MAYA OSHEA MD Cbc With Automated Diff (12/22/19 19:02) Magnesium (12/22/19 19:02) Chest 1 View, Ap/Pa Only (12/22/19 19:02) Ekg Tracing (12/22/19 19:02) Comprehensive Metabolic Panel (12/22/19 19:02) Myoglobin Serum (12/22/19 19:) Protime With Inr (12/22/19 19:02) Partial Thromboplastin Time (12/22/19 19:02) O2 (12/22/19 19:02) Monitor-Rhythm Ecg Trace Only (12/22/19 19:02) Lipid Panel (12/23/19 06:00) Ed Iv/Invasive Line Start (12/22/19 19:02) Troponin I (12/22/19 19:02) Aspirin Chewable Tablet (Baby Aspirin Ch (12/22/19 19:15) Fibrin Degradation Products (12/22/19 19:14) Ketorolac Injection (Toradol Injection) (12/22/19 19:14) Metoprolol Tartrate (Ir) Tab (Lopressor (12/22/19 19:15) Ns Iv 1000 Ml (Sodium Chloride 0.9%) (12/22/19 19:15) Acetaminophen Tablet (Tylenol Tablet) (12/22/19 20:30) Albuterol Inhaler (Ventolin Hfa) (12/22/19 22:00) Medications Given in ED Current Medications Medications Dose Ordered Sig/Vance Route Start Time Stop Time Status Last Admin Dose Admin Aspirin 324 mg ONCE ONCE PO 12/22/19 19:15 12/22/19 19:16 DC 12/22/19 19:27 324 MG Metoprolol Tartrate 50 mg ONCE ONCE PO 12/22/19 19:15 12/22/19 19:16 DC 12/22/19 19:28 50 MG Vital Signs/I&O 12/22/19 12/22/19 18:48 19:25 Temp 36.6 Pulse 110 98 Resp 20 34 B/P (MAP) 194/125 (148) Pulse Ox 97 98 O2 Delivery Room Air O2 Flow Rate 50.00 Progress Progress Note : Progress Note Seen and evaluated. IV, labs, EKG and chest x-ray ordered. ASA 324 mg by mouth. Toradol 30 mg IV and metoprolol 50 mg by mouth ordered. Monitor patient. 2049: Overall doing better. Tylenol 1 g by mouth given. Albuterol inhaler given. She does believe that she may suffer from allergies some and this all seemed to worsen when she entered the smoking environment at the [facility]. Discharged home with return precautions. Patient verbalize understanding instructions and agreement with plan. Initial ECG Impression Date: Dec 22, 2019 Initial ECG Impression Time: 18:57 Initial ECG Rate: 101 Initial ECG Rhythm: S.Tach Initial ECG Impression: Nonspecific Changes Initial ECG Comparisson: No Previous ECG Available Comment Sinus rhythm with normal axis. No evidence of ST elevation DE. No previous available for comparison. Interpreted by me. Diagnostic Imaging Diagonstic Imaging: Xray Plain Films/CT/US/NM/MRI: chest Comments [facility]. [facility], [place] NAME: [facility] REC#: [id number] PT STATUS: REG ER : 1990 PHYSICIAN: MAYA OSHEA MD ADMIT DATE: 12/22/19/ER Draft Date of Exam:12/22/19 CHEST 1 VIEW, AP/PA ONLY EXAMINATION: Chest radiograph, portable AP view. DATE: 12/22/2019 7:27 PM hours. INDICATION: 29-year-old female, chest pain. Shortness of breath. COMPARISON: November 21, 2018. FINDINGS: Heart size and mediastinal contours are unchanged and unremarkable. There is no identified pneumothorax. There is no large pleural effusion. There is a redemonstrated nodular opacity overlying the right upper lobe which appears unchanged. There is no identified interval focal airspace consolidation. IMPRESSION: No identified acute cardiopulmonary abnormality. Dictated on workstation # [id number] Dict: 12/22/191934 Trans: 12/22/191938 [facility] [id number] Interpreted by: WONG MAHER MD Electronically signed by: Departure Impression Primary Impression: Bronchitis Additional Impressions: Chest pain Qualified Codes: R07.9 - Chest pain, unspecified Hypertension Qualified Codes: I10 - Essential (primary) hypertension Disposition: 01 HOME, SELF-CARE Condition: Improved Departure-Patient Inst. Decision time for Depature: 20:52 Referrals: [facility] (PCP/Family) Primary Care Physician Patient Instructions: Acute Bronchitis, Adult (DC), Chest Pain (DC) Add. Discharge Instructions: All discharge instructions reviewed with patient and/or family. Voiced understanding. You may use the inhaler 2 puffs every 4 hours as needed for shortness of air. You may take Tylenol or ibuprofen per package instructions as needed for pain. Call and make appointment with your DrObinna to discuss your high blood pressure. Take the prescribed medications as directed. Return for worse pain, fever, vomiting, weakness, breathing problems or other concerns as needed. Scripts Metoprolol Tartrate (Metoprolol Tartrate) 50 Mg Tablet 50 MG PO BID, #60 TAB 0 Refills Prov: MAYA OSHEA MD 9/16/20 Copy Copies To 1: NOREEN MANCIA TIMOTHY D MD Dec 22, 2019 19:22
[2019-12-22 19:25] VITALS: BP 125/79
--- NOTE | 2019-12-22 19:39 | Diagnostic Imaging Report ---
EXAMINATION: Chest radiograph, portable AP view. DATE: 12/22/2019 7:27 PM hours. INDICATION: 29-year-old female, chest pain. Shortness of breath. COMPARISON: November 21, 2018. FINDINGS: Heart size and mediastinal contours are unchanged and unremarkable. There is no identified pneumothorax. There is no large pleural effusion. There is a redemonstrated nodular opacity overlying the right upper lobe which appears unchanged. There is no identified interval focal airspace consolidation. IMPRESSION: No identified acute cardiopulmonary abnormality. Dictated by: Dictated on workstation # [id number]
[2019-12-22] MEDS ORDERED: ACETAMINOPHEN 500 MG TAB (TYLENOL) PO STA (20:30)
[2019-12-22] MEDS: RT-ALBUTEROL INHALER HFA (VENTOLIN HFA) 18 GM IH SCH ×2 (20:35→20:36)
[2019-12-22] MEDS ORDERED: METO50TA15 PO (20:54)
[2019-12-22 21:11] VITALS: BP 125/79
== END 2019-12-22 21:11 | disposition home or self-care (01) ==
LOC: EDUNIT# 18:39 → ER 18:41
DX: I10 Essential (primary) hypertension (principal); J40 Bronchitis, not specified as acute or chronic; Z88.1 Allergy status to other antibiotic agents; Z79.52 Long term (current) use of systemic steroids
CPT/HCPCS: 36415; 71045; 80053; 83735; 83874; 84484; 85025; 85379; 85610; 85730; 93005; 93041; 94660

== ENCOUNTER 2020-02-19 09:18 | Emergency (ER) | payer MEDICAID ==
[~2020-02-19] VITALS: Ht 167 cm; Wt 92.9 kg
[~2020-02-19 09:18] MED LIST changes: +METO50TA15 PO
[2020-02-19] MEDS ORDERED: LACTATED RINGERS 1,000 ML IV ONE (09:31)
[2020-02-19 09:41] LABS: BASOPHILS % (AUTO) 1 % (0-10); EOSINOPHILS # (AUTO) 0.2 10^3/uL (0.0-0.3); EOSINOPHILS % (AUTO) 2 % (0-10); HEMATOCRIT 43 % (35-52); HEMOGLOBIN 14.3 g/dL (11.5-16.0); LYMPHOCYTES # (AUTO) 3.3 10^3/uL (1.0-4.0); LYMPHOCYTES % (AUTO) 38 % (12-44); MEAN CORPUSCULAR HEMOGLOBIN 28 pg (25-34); MEAN CORPUSCULAR HGB CONC 33 g/dL (32-36); MEAN CORPUSCULAR VOLUME 85 fL (80-99); MEAN PLATELET VOLUME 9.9 fL (9.0-12.2); MONOCYTES # (AUTO) 0.8 10^3/uL (0.0-1.0); MONOCYTES % (AUTO) 9 % (0-12); NEUTROPHILS # (AUTO) 4.4 10^3/uL (1.8-7.8); NEUTROPHILS % (AUTO) 50 % (42-75); PLATELET COUNT 347 10^3/uL (130-400); WHITE BLOOD COUNT 8.7 10^3/uL (4.3-11.0)
[2020-02-19] MEDS ORDERED: ONDANSETRON 4 MG/2 ML (SDV) Z0FRAN IVP ONE (09:45)
[2020-02-19] MEDS ORDERED: KETOROLAC 30 MG/ML VIAL IVP ONE (09:45)
[2020-02-19 09:53] LABS: ALBUMIN 4.5 GM/DL (3.2-4.5); CHLORIDE 106 MMOL/L (98-107); POTASSIUM 3.8 MMOL/L (3.6-5.0); SODIUM 137 MMOL/L (135-145)
[2020-02-19 09:54] LABS: CALCIUM 9.9 MG/DL (8.5-10.1)
[2020-02-19 09:55] LABS: GLUCOSE 125 MG/DL (70-105)
[2020-02-19 09:56] LABS: TOTAL PROTEIN 8.3 GM/DL (6.4-8.2)
[2020-02-19 09:57] LABS: BILIRUBIN,TOTAL 0.5 MG/DL (0.1-1.0); CARBON DIOXIDE 17 MMOL/L (21-32)
[2020-02-19 09:59] LABS: ALKALINE PHOSPHATASE 119 U/L (40-136); GFR ESTIMATED > 60
[2020-02-19 10:00] LABS: BUN/CREATININE RATIO 14
[2020-02-19 10:02] LABS: ALANINE AMINOTRANSFERASE 24 U/L (0-55)
[2020-02-19 10:14] LABS: BILIRUBIN,URINE NEGATIVE (NEGATIVE); CLARITY,URINE CLEAR; COLOR,URINE YELLOW; GLUCOSE, URINE (UA) NEGATIVE (NEGATIVE); KETONES,URINE NEGATIVE (NEGATIVE); LEUKOCYTE ESTERASE ,URINE NEGATIVE (NEGATIVE); NITRITE,URINE NEGATIVE (NEGATIVE); PH,URINE 7.5 (5-9); PROTEIN,URINE NEGATIVE (NEGATIVE)
[2020-02-19 10:39] LABS: BACTERIA,URINE TRACE /HPF
[2020-02-19] MEDS ORDERED: fentaNYL INJECTION 100 MCG/2 ML AMP IVP ONE (11:00)
--- NOTE | 2020-02-19 11:39 | Diagnostic Imaging Report ---
PROCEDURE: CT urinary tract, rule out kidney stone. TECHNIQUE: Multiple contiguous axial images were obtained through the abdomen and pelvis without the use of intravenous contrast. Auto Exposure Controls were utilized during the CT exam to meet ALARA standards for radiation dose reduction. INDICATION: Right flank pain. Correlation is made with prior CT from 01/01/2019. The lung bases are clear. The liver and gallbladder are unremarkable. No biliary ductal dilatation is seen. The pancreas and spleen are unremarkable. There is no adrenal mass. Both kidneys contain tiny nonobstructing calculi. In addition, there is moderate right-sided hydronephrosis. This appears to be caused by a 5 mm calculus in the proximal right ureter just beyond the UPJ. Remainder of the right ureter is unremarkable. No bladder calculi are seen. Left ureter is unremarkable. Aorta is nonaneurysmal. The bowel loops are normal caliber. There is no obstruction or free fluid. Small cyst in the left ovary is noted measuring 19 mm. Uterus is unremarkable. IMPRESSION: Bilateral nonobstructing nephrolithiasis. In addition, there is a 5 mm stone in the proximal right ureter producing moderate hydronephrosis. Dictated by: Dictated on workstation # [id number]
[2020-02-19] MEDS ORDERED: ONDA4TAB11 SL (11:54)
[2020-02-19] MEDS ORDERED: OXYC1TAB87 PO (11:54)
[2020-02-19] MEDS ORDERED: CIPR500T4 PO (11:54)
--- NOTE | 2020-02-19 11:55 | ED Abdominal Pain ---
General Chief Complaint: Abdominal/GI Problems Stated Complaint: BACK / RIGHT SIDE PAIN Nursing Triage Note: PT PRESENTS TO ED VIA POV FROM HOME WITH COMPLAINTS OF R SIDE/BACK PAIN SINCE FRIDAY. PT REPORTS IT HAS PROGRESSIVELY GOTTEN WORSE, AND STARTEFD VOMITING TODAY. Sepsis Screen: No Definite Risk Source of Information: Patient Exam Limitations: No Limitations History of Present Illness Date Seen by Provider: Feb 19, 2020 Time Seen by Provider: 09:25 Initial Comments This 29-year-old woman presents to the emergency room with sudden onset of right flank pain radiating to her right groin that woke her from sleep early this morning. She also noted some lower back pain over the past few days. She denies any urinary symptoms. She does have a history of kidney stones and thinks this feels similar. She is afebrile. She denies . She has associated nausea and vomiting. Allergies and Home Medications Allergies Coded Allergies: amoxicillin (Verified Allergy, Mild, 03/02/18) Home Medications Benzonatate 100 Mg Capsule, 1-2 TAB PO TID Prescribed by: PAZ PANTOJA on 11/21/18 0306 Cefdinir 300 Mg Capsule, 300 MG PO BID Prescribed by: MAYA OSHEA on 03/02/18 1644 Cefdinir 300 Mg Capsule, 300 MG PO BID Prescribed by: PAZ PANTOJA on 11/21/18 0306 Ciprofloxacin HCl 500 Mg Tablet, 500 MG PO BID Prescribed by: ASYA CHENG on 02/19/20 1154 Guaifenesin/Dextromethorphan 1 Each Tbmp.12hr, 1 EACH PO BID Prescribed by: PAZ PANTOJA on 11/21/18 0306 Hydrocodone Bit/Acetaminophen 1 Each Tablet, 1 EACH PO Q6H PRN for BREAKTHROUGH PAIN Prescribed by: LOBO NERI on 03/22/17 0153 Hydrocodone Bit/Acetaminophen 1 Tab Tab, 1 EACH PO Q4-6HR PRN for PAIN-MODERATE Prescribed by: MAYA OSHEA on 03/02/18 1644 Hydrocodone Bit/Acetaminophen 1 Tab Tab, 1 EACH PO Q4-6HR PRN for PAIN-MODERATE Prescribed by: AWAIS CLEMENT on 05/11/18 2220 Hydrocodone/Acetaminophen 1 Each Tablet, 1 TAB PO Q4-6HR Prescribed by: EDWARD RAMOS on 9/27/19 2236 Methylprednisolone 4 Mg Tab.ds.pk, 4 MG PO UD Prescribed by: PAZ PANTOJA on 11/21/18 0306 Metoprolol Tartrate 50 Mg Tablet, 50 MG PO BID Prescribed by: MAYA OSHEA on 12/22/192053 Ondansetron 4 Mg Tab.rapdis, 4 MG PO Q6H PRN for NAUSEA/VOMITING Prescribed by: MAYA OSHEA on 03/02/18 172 Ondansetron 8 Mg Tab.rapdis, 8 MG PO Q6H PRN for NAUSEA/VOMITING Prescribed by: EDWARD RAMOS on 01/01/19 224 Ondansetron 4 Mg Tab.rapdis, 4 MG SL Q4H PRN for NAUSEA/VOMITING Prescribed by: ASYA CHENG on 02/19/20 115 Oxycodone HCl/Acetaminophen 1 Each Tablet, 1-2 TAB PO Q4H Prescribed by: ASYA CHENG on 02/19/20 1155 Sulfamethoxazole/Trimethoprim 1 Each Tablet, 1 EACH PO BID Prescribed by: AWAIS CLEMENT on 05/11/182219 Sulfamethoxazole/Trimethoprim 1 Each Tablet, 1 EACH PO BID Prescribed by: EDWARD RAMOS on 01/01/192235 Tamsulosin HCl 0.4 Mg Cap, 0.4 MG PO DAILY Prescribed by: EDWARD RAMOS on 01/01/192235 Patient Home Medication List Home Medication List Reviewed: Yes Review of Systems Review of Systems Constitutional: no symptoms reported EENTM: No Symptoms Reported Respiratory: No Symptoms Reported Cardiovascular: No Symptoms Reported Gastrointestinal: See HPI Genitourinary: See HPI Musculoskeletal: no symptoms reported Skin: no symptoms reported Psychiatric/Neurological: No Symptoms Reported Endocrine: No Symptoms Reported Hematologic/Lymphatic: No Symptoms Reported Past Uhouqxn-Krafrj-Fsftxw Hx Past Med/Social Hx: Reviewed Nursing Past Med/Soc Hx Patient Social History Alcohol Use: Denies Use Number of Drinks Today: AA Alcohol Beverage of Choice: Beer Recreational Drug Use: No Smoking Status: Never a Smoker 2nd Hand Smoke Exposure: No Recent Foreign Travel: No Contact w/Someone Who Travel: No Recent Infectious Disease Expo: No Recent Hopitalizations: No Physical Abuse: No Sexual Abuse: No Mistreated: No Fear: No Immunizations Up To Date Tetanus Booster (TDap): Unknown Seasonal Allergies Seasonal Allergies: No Past Medical History Surgeries: Yes ("MASS REMOVED UNDER RIGHT BREAST" IN [facility] MAY 2018; X 2) Appendectomy, Section, Tonsillectomy, Tubal Ligation Respiratory: No Cardiac: Yes Hypertension Neurological: No Reproductive Disorders: No [employer] History: Tubal Ligation Genitourinary: Yes Kidney Infection Gastrointestinal: No Musculoskeletal: No Endocrine: No HEENT: No Cancer: No Psychosocial: No Integumentary: No Blood Disorders: No Adverse Reaction/Blood Tranf: No Family Medical History No Pertinent Family Hx Physical Exam Vital Signs Vital Signs - First Documented 02/19/20 09:25 Temp 35.2 Pulse 111 Resp 20 B/P (MAP) 173/127 (142) Pulse Ox 97 Capillary Refill : Less Than 3 Seconds Height/Weight/BMI Height: 5'6.00" Weight: 192lbs. 0oz. 87.513099qa; 33.00 BMI Method:Stated General Appearance: WD/WN, mild distress HEENT: PERRL/EOMI, normal ENT inspection, pharynx normal Neck: normal inspection Respiratory: lungs clear, normal breath sounds, no respiratory distress, no accessory muscle use Cardiovascular: regular rate, rhythm, no edema, no murmur Gastrointestinal: normal bowel sounds, soft, tenderness (right mid and lower abdomen) Extremities: normal inspection, no pedal edema Neurologic/Psychiatric: hand polisher II-XII nml as tested, no motor/sensory deficits, alert, normal mood/affect, oriented x 3 Skin: normal color, warm/dry Progress/Results/Core Measures Results/Orders Lab Results Laboratory Tests Test 02/19/20 09:34 02/19/20 10:02 Range/Units White Blood Count 8.7 4.3-11.0 10^3/uL Red Blood Count 5.06 3.80-5.11 10^6/uL Hemoglobin 14.3 11.5-16.0 g/dL Hematocrit 43 35-52 % Mean Corpuscular Volume 85 80-99 fL Mean Corpuscular Hemoglobin 28 25-34 pg Mean Corpuscular Hemoglobin Concent 33 32-36 g/dL Red Cell Distribution Width 13.9 10.0-14.5 % Platelet Count 347 130-400 10^3/uL Mean Platelet Volume 9.9 9.0-12.2 fL Immature Granulocyte % (Auto) 0 % Neutrophils (%) (Auto) 50 42-75 % Lymphocytes (%) (Auto) 38 12-44 % Monocytes (%) (Auto) 9 0-12 % Eosinophils (%) (Auto) 2 0-10 % Basophils (%) (Auto) 1 0-10 % Neutrophils # (Auto) 4.4 1.8-7.8 10^3/uL Lymphocytes # (Auto) 3.3 1.0-4.0 10^3/uL Monocytes # (Auto) 0.8 0.0-1.0 10^3/uL Eosinophils # (Auto) 0.2 0.0-0.3 10^3/uL Basophils # (Auto) 0.0 0.0-0.1 10^3/uL Immature Granulocyte # (Auto) 0.0 0.0-0.1 10^3/uL Sodium Level 137 135-145 MMOL/L Potassium Level 3.8 3.6-5.0 MMOL/L Chloride Level 106 98-107 MMOL/L Carbon Dioxide Level 17 L 21-32 MMOL/L Anion Gap 14 5-14 MMOL/L Blood Urea Nitrogen 10 7-18 MG/DL Creatinine 0.70 0.60-1.30 MG/DL Estimat Glomerular Filtration Rate > 60 BUN/Creatinine Ratio 14 Glucose Level 125 H 70-105 MG/DL Calcium Level 9.9 8.5-10.1 MG/DL Corrected Calcium 9.5 8.5-10.1 MG/DL Total Bilirubin 0.5 0.1-1.0 MG/DL Aspartate Amino Transf (AST/SGOT) 22 5-34 U/L Alanine Aminotransferase (ALT/SGPT) 24 0-55 U/L Alkaline Phosphatase 119 40-136 U/L Total Protein 8.3 H 6.4-8.2 GM/DL Albumin 4.5 3.2-4.5 GM/DL Serum Test, Qualitative NEGATIVE NEGATIVE Urine Color YELLOW Urine Clarity CLEAR Urine pH 7.5 5-9 Urine Specific Jameson 1.015 L 1.016-1.022 Urine Protein NEGATIVE NEGATIVE Urine Glucose (UA) NEGATIVE NEGATIVE Urine Ketones NEGATIVE NEGATIVE Urine Nitrite NEGATIVE NEGATIVE Urine Bilirubin NEGATIVE NEGATIVE Urine Urobilinogen 0.2 < = 1.0 MG/DL Urine Leukocyte Esterase NEGATIVE NEGATIVE Urine RBC (Auto) 1+ H NEGATIVE Urine RBC 5-10 H /HPF Urine WBC NONE /HPF Urine Squamous Epithelial Cells 2-5 /HPF Urine Crystals NONE /LPF Urine Bacteria TRACE /HPF Urine Casts NONE /LPF Urine Mucus NEGATIVE /LPF Urine Culture Indicated NO My Orders Orders - ASYA PEREZ MD Cbc With Automated Diff (02/19/20 09:25) Comprehensive Metabolic Panel (02/19/20 09:25) Hcg,Qualitative Serum (02/19/20 09:25) Ua Culture If Indicated (02/19/20 09:25) Ed Iv/Invasive Line Start (02/19/20 09:25) Ketorolac Injection (Toradol Injection) (02/19/20 09:45) Ondansetron Injection (Zofran Injectio (02/19/20 09:45) Lactated Ringers (Lr 1000 Ml Iv Solution (02/19/20 09:31) Fentanyl Injection (Sublimaze Injection (02/19/20 11:00) Ct Abd/Pelvis Wo(Kidney Stone) (02/19/20 10:55) Oxycodone/Apap 5/325mg Tablet (Percocet (02/19/20 12:00) Medications Given in ED Vital Signs/I&O 02/19/20 02/19/20 09:25 12:05 Temp 35.2 Pulse 111 92 Resp 20 18 B/P (MAP) 173/127 (142) 149/106 Pulse Ox 97 97 Blood Pressure Mean: 142 Progress Progress Note : Progress Note Patient was treated with Toradol, Zofran, IVF and Fentanyl. Risks and benefits of CT scan were reviewed and patient elected to proceed with CT scan. CT revealed a proximal right ureteral stone. See discharge instructions. Departure Impression Primary Impression: Right ureteral stone Additional Impressions: Right flank pain Nausea and vomiting Qualified Codes: R11.2 - Nausea with vomiting, unspecified Disposition: 01 HOME, SELF-CARE Condition: Improved Departure-Patient Inst. Decision time for Depature: 11:52 Referrals: [facility] (PCP/Family) Primary Care Physician Patient Instructions: Kidney Stone Diet, Kidney Stones in Adults Add. Discharge Instructions: Drink plenty of clear liquids to help flush out the kidney stones. Use Percocet as prescribed for pain. This may cause drowsiness and confusion. Avoid driving, operating machinery, or making important decisions while on this medication. Strain your urine and bring any stones collected to your follow-up appointment. Follow-up with Dr. Pearson or the urologist of your choice on Friday. Return to care if you have worsening symptoms in the meantime. All discharge instructions reviewed with patient and/or family. Voiced understanding. Scripts Ciprofloxacin HCl (Ciprofloxacin HCl) 500 Mg Tablet 500 MG PO BID, #14 TAB Prov: ASYA PEREZ MD 02/19/20 Ondansetron (Ondansetron Odt) 4 Mg Tab.rapdis 4 MG SL Q4H PRN for NAUSEA/VOMITING, #10 TAB Prov: ASYA PEREZ MD 02/19/20 Oxycodone HCl/Acetaminophen (Percocet 5-325 mg Tablet) 1 Each Tablet 1-2 TAB PO Q4H for PAIN-MODERATE MDD 6 TABS, #20 TAB Prov: ASYA PEREZ MD 02/19/20 Copy Copies To 1: LYUBOV PEARSON MD Copies To 2: NOREEN MANCIA JOSHUA T MD Feb 19, 2020 11:55
[2020-02-19] MEDS ORDERED: oxyCODONE/APAP 5/325MG (PERCOCET 5) TABLET PO ONE (12:00)
[2020-02-19 12:05] VITALS: BP 149/106
== END 2020-02-19 12:16 | disposition home or self-care (01) ==
LOC: EDUNIT# 09:18 → ER 09:19
DX: N13.2 Hydronephrosis with renal and ureteral calculous obstruction (principal); R11.2 Nausea with vomiting, unspecified; I10 Essential (primary) hypertension; Z88.1 Allergy status to other antibiotic agents; Z79.52 Long term (current) use of systemic steroids
CPT/HCPCS: 36415; 74176; 80053; 81000; 84703; 85025

== ENCOUNTER → 2020-02-23 | Outpatient (CLI) | payer MEDICAID ==
[~2020-02-23] MED LIST changes: +CIPR500T4 PO; +ONDA4TAB11 SL; +OXYC1TAB87 PO
--- NOTE | 2020-02-23 13:05 | Diagnostic Imaging Report ---
INDICATION: Right renal calculus. COMPARISON: CT dated 02/19/2020. FINDINGS: Two supine radiographic views of the abdomen were obtained. There is extraosseous calcification projecting over the right hemipelvis inferior to the right SI joint. It measures approximately 4 mm. Smaller calculi are noted within this area on previous CT. No other suspicious extraosseous calcifications are seen on today's exam. This is felt to represent interval migration of previously described proximal ureteral calculus. Additional punctate calculus is also again seen projecting over the superior pole of the right kidney. No unexpected radiopaque foreign bodies are seen. Small bowel loops are nondistended. There is no large collection of free peritoneal air. Osseous structures show no gross acute abnormalities. IMPRESSION: 1. Findings suggestive of interval migration of calculus into the distal right ureter. 2. Additional punctate right renal calculus. Dictated by: Dictated on workstation # [id number]
== END ==
LOC: RAD 12:26
PROVIDERS: ATTEND Urology
DX: N20.0 Calculus of kidney (principal)
CPT/HCPCS: 74018

== ENCOUNTER 2020-02-28 13:54 | Outpatient (RCR) | payer MEDICAID ==
[~2020-02-28] VITALS: Ht 167.7 cm; Wt 93.2 kg
[~2020-02-28 13:54] MED LIST changes: -NITR-65 PO; -PHEN-640 PO; -TRAM50TA3 PO
[2020-02-29] MEDS ORDERED: TRAM50TA3 PO (08:43)
[2020-02-29] MEDS ORDERED: TMSL.4C PO (08:43)
[2020-02-29] MEDS ORDERED: NITR-65 PO (08:43)
[2020-02-29] MEDS ORDERED: PHEN-640 PO (08:43)
== END 2020-02-28 14:27 | disposition home or self-care (01) ==
LOC: PREOP 13:54
PROVIDERS: ATTEND Urology
DX: Z01.818 Encounter for other preprocedural examination (principal)

== ENCOUNTER → 2020-02-28 | Outpatient (CLI) | payer MEDICAID ==
[~2020-02-28] MED LIST changes: +NITR-65 PO; +PHEN-640 PO; +TRAM50TA3 PO
--- NOTE | 2020-02-28 13:35 | Diagnostic Imaging Report ---
INDICATION: Followup distal ureteral calculus. COMPARISON: 01/01/2019 FINDINGS: Multiple supine frontal radiographic views of the abdomen were obtained and show slight interval distal migration of previously described right distal ureteral calculus. Punctate calculus is also identified projecting over the superior pole of the right kidney and corresponds to renal calculus seen on previous CT. No unexpected radiopaque foreign bodies are identified. Small bowel loops are nondistended. Moderate colonic air and stool are present. There is no large collection of free intraperitoneal air. Osseous structures show no acute abnormalities. IMPRESSION: 1. Slight interval distal migration of previously described right ureteral calculus. 2. Redemonstration additional right renal calculus. 3. Moderate chronic air and stool. Please correlate for constipation. Dictated by: Dictated on workstation # [id number]
== END ==
LOC: RAD 12:25
PROVIDERS: ATTEND Urology
DX: N20.1 Calculus of ureter (principal)
CPT/HCPCS: 74018

== ENCOUNTER 2020-02-29 05:58 | Day surgery (SDC) | payer MEDICAID ==
[~2020-02-29] VITALS: Ht 167.7 cm; Wt 93.2 kg
[2020-02-29] VITALS (9 sets, daily range): BP systolic 84–131; BP diastolic 53–91
[2020-02-29] MEDS ORDERED: cefTRIAXone FOR IV USE 1,000 MG in WATER (STERILE) FOR INJECTION 10 ML IV ONE (06:15)
[2020-02-29] MEDS ORDERED: proPOfol 200 MG/20 ML (DIPRIVAN) VIAL IV ONE (06:36)
[2020-02-29] MEDS ORDERED: SEVOFLURANE (ULTANE) 15 ML INHAL SOLN ONE ×3 (06:36→08:18)
[2020-02-29] MEDS ORDERED: ONDANSETRON 4 MG/2 ML (SDV) Z0FRAN ONE ×2 (06:36→08:00)
[2020-02-29] MEDS ORDERED: LIDOCAINE PF 2% 5 ML (XYLOCAINE) VIAL ONE (06:36)
[2020-02-29] MEDS ORDERED: fentaNYL INJECTION 100 MCG/2 ML AMP ONE (06:36)
[2020-02-29] MEDS ORDERED: MIDAZOLAM 2 MG/2 ML (VERSED) VIAL ONE (06:37)
--- NOTE | 2020-02-29 06:43 | Diagnostic Imaging Report ---
Indication: Nephrolithiasis KUB 6:21 AM There is a 2 mm calcification projecting over the upper pole the right kidney. There is a moderate amount of stool in the colon. Bowel gas pattern is normal. IMPRESSION: Stable appearing right nephrolithiasis. No change from previous day. Dictated by: Dictated on workstation # [id number]
[2020-02-29] MEDS ORDERED: CATHETER FLUSH 10 ML SYR IV PRN (06:45)
[2020-02-29] MEDS ORDERED: LACTATED RINGERS 1,000 ML IV PRN (06:46)
--- NOTE | 2020-02-29 07:15 | Progress Note-Pre Operative ---
Pre-Operative Progress Note H&P Reviewed The H&P was reviewed, patient examined and no changes noted. Date Seen by Provider: Feb 29, 2020 Time Seen by Provider: 07:14 Date H&P Reviewed: Feb 29, 2020 Time H&P Reviewed: 07:15 Pre-Operative Diagnosis: RT DISTAL URETERAL STONE LYUBOV PEARSON MD Feb 29, 2020 07:15
--- NOTE | 2020-02-29 07:16 | Progress Note-Post Operative ---
Post-Operative Progess Note Surgeon (s)/Gerontology Aide (s) Surgeon LYUBOV PEARSON MD Gerontology Aide: NONE Pre-Operative Diagnosis RT DISTAL URETERAL STONE Post-Operative Diagnosis SAME Procedure & Operative Findings Date of Procedure 02/29/20 Procedure Performed/Findings CYSTOSCOPY, RT URETEROSCOPY WITH STONE LITHOTRIPSY Anesthesia Type GENERAL Estimated Blood Loss Estimated blood loss (mL): NONE Specimens/Packing Specimens Removed NONE Packing: NONE LYUBOV PEARSON MD Feb 29, 2020 07:16
--- NOTE | 2020-02-29 07:17 | Discharge Inst-Urology ---
Discharge Inst-Urology Reconcile Patient Problems Problems Reviewed?: Yes Final Diagnosis RT DISTAL URETERAL STONE Patient Instructions/Follow Up Plan/Assessment/Instructions Please make appointment to been seen in office in 2 weeks. Increase oral fluids for 48 hours and then as needed. Diet and Activity as tolerated. If questions or concerns contact your physician Or seek help at emergency department. LYUBOV PEARSON MD Feb 29, 2020 07:17
[2020-02-29] MEDS ORDERED: PROPOFOL INJECTION 50 ML IV ONE (08:05)
--- NOTE | 2020-02-29 08:14 | Anesthesia-General Post-Op ---
General Patient Condition Mental Status/LOC: Same as Preop Cardiovascular: Satisfactory Nausea/Vomiting: Absent Respiratory: Satisfactory Pain: Controlled Complications: Absent Post Op Complications Complications None Follow Up Care/Instructions Patient Instructions None needed. Anesthesia/Patient Condition Patient Condition Patient is doing well, no complaints, stable vital signs, no apparent adverse anesthesia problems. No complications reported per nursing. CAROLE ENCARNACION CRNA Feb 29, 2020 08:14
[2020-02-29] MEDS ORDERED: fentaNYL INJECTION 100 MCG/2 ML AMP IVP ONE (08:15)
[2020-02-29] MEDS ORDERED: TMSL.4C PO (08:43)
[2020-02-29] MEDS ORDERED: TRAM50TA3 PO (08:43)
[2020-02-29] MEDS ORDERED: PHEN-640 PO (08:43)
[2020-02-29] MEDS ORDERED: NITR-65 PO (08:43)
--- NOTE | 2020-02-29 09:45 | OPERATIVE REPORT ---
DATE OF SERVICE: 02/29/2020 PREOPERATIVE DIAGNOSIS: Right distal ureteral stone. POSTOPERATIVE DIAGNOSIS: Right distal ureteral stone. OPERATION PERFORMED: Right ureteroscopy with stone lithotripsy. SURGEON: Lucio Pearson MD ANESTHESIA: General. COMPLICATIONS: None. DESCRIPTION OF PROCEDURE: Under satisfactory general anesthesia, the patient in lithotomy position, genitalia were prepped and draped in the usual sterile fashion. Cystoscope was introduced under vision. Examination of the bladder was essentially normal except for sluggish efflux on the right side. Using the foroblique lens, I dilated the right ureteral orifice intramural portion to the level of the stone to accommodate a 6.9 Polish semi-rigid ureteroscope. I visualized the stone. I completely fragmented it and some of the fragment was suctioned and some fell into the bladder. I went beyond the stone level. There was no more fragment and no more stones, back and forth to make sure the integrity of the ureter. I removed the ureteroscope. The patient tolerated the procedure and anesthesia well and was sent to the recovery room in a stable condition. Job ID: [id number] DocumentID: [id number] Dictated Date: 02/29/2020 08:05:12 [employer] Teacher Date: 02/29/2020 09:44:39 Dictated By: LUCIO PEARSON MD
--- NOTE | 2020-02-29 09:50 | NUR ---
PATIENT RECEIVED 2000 CC OF LR. IV DC'D. SITE CLEAR.
== END 2020-02-29 10:00 | disposition home or self-care (01) ==
LOC: SDC 05:58
PROVIDERS: ATTEND Urology
DX: N20.1 Calculus of ureter (principal); I10 Essential (primary) hypertension; J40 Bronchitis, not specified as acute or chronic; Z79.899 Other long term (current) drug therapy; Z88.1 Allergy status to other antibiotic agents; E66.9 Obesity, unspecified; Z68.33 Body mass index [BMI] 33.0-33.9, adult; Z20.828 Contact with and (suspected) exposure to other viral communicable diseases
CPT/HCPCS: 52353; 74018; 76000; 84703; 87081; U0002; 87635

== ENCOUNTER → 2020-03-20 | Outpatient (CLI) | payer MEDICAID ==
[~2020-03-20] MED LIST changes: +NITR-65 PO; +PHEN-640 PO; +TRAM50TA3 PO
== END ==
LOC: RAD 15:57
PROVIDERS: ATTEND Urology
DX: N20.0 Calculus of kidney (principal)

== ENCOUNTER 2022-02-01 19:07 | Emergency (ER) | payer MEDICAID ==
[~2022-02-01] VITALS: Ht 165.1 cm; Wt 81.6 kg
[~2022-02-01 19:07] MED LIST changes: -CIPR500T4 PO; +CIPR500T5 PO; -SULF1TAB35 PO; +SULF1TAB38 PO
--- NOTE | 2022-02-01 19:18 | ED Lower Extremity ---
General Stated Complaint: RT KNEE PAIN Source: patient, EMS Exam Limitations: no limitations History of Present Illness Date Seen by Provider: Feb 01, 2022 Time Seen by Provider: 19:16 Initial Comments to ER by EMS from [employer] where she is employed. She went around the corner, her foot slipped out from beneath her and she landed on the right side now she has right knee pain and right hip pain. No other injury.. She also states that she is hypertensive and has been out of her blood pressure medications. Onset: just prior to arrival Severity: moderate Pain/Injury Location: right knee Method of Injury: fell Modifying Factors: Worse With Movement Allergies and Home Medications Allergies Coded Allergies: amoxicillin (Verified Allergy, Mild, Has received Rocephin w/o issue, 02/29/20) Patient Home Medication List Home Medication List Reviewed: Yes Nitrofurantoin Monohyd/M-Cryst (Macrobid 100 mg Capsule) 100 Mg Capsule, 1 TAB PO BID WITH MEALS Prescribed by: PATRIC JOHNSON on 02/29/20 08 Phenazopyridine HCl (Pyridium) 200 Mg Tablet, 1 TAB PO TID Prescribed by: PATRIC JOHNSON on 02/29/20 08 Tamsulosin HCl (Flomax) 0.4 Mg Cap, 0.4 MG PO DAILY Prescribed by: PATRIC JOHNSON on 02/29/20 08 Tramadol HCl (Tramadol HCl) 50 Mg Tablet, 1-2 TAB PO Q4H Prescribed by: PATRIC JOHNSON on 02/29/20 0843 Review of Systems Constitutional: see HPI EENTM: see HPI Respiratory: no symptoms reported Cardiovascular: no symptoms reported Genitourinary: no symptoms reported Musculoskeletal: see HPI Skin: no symptoms reported Psychiatric/Neurological: No Symptoms Reported Past Ibjfbwb-Qptmin-Ngkkrr Hx Immunizations Up To Date Tetanus Booster (TDap): Unknown Seasonal Allergies Seasonal Allergies: No Past Medical History Surgeries: Yes ("MASS REMOVED UNDER RIGHT BREAST" IN [facility] 2018; X 2) Appendectomy, Section, Tonsillectomy, Tubal Ligation Respiratory: No Currently Using CPAP: No Currently Using BIPAP: No Cardiac: Yes Hypertension Neurological: No 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 0oz. 87.700672sk; 33.13 BMI Method:Stated General Appearance: WD/WN, no apparent distress HEENT: PERRL/EOMI, normal ENT inspection Neck: non-tender, full range of motion Respiratory: no respiratory distress, no accessory muscle use Hips: bilateral hip non-tender, bilateral hip normal inspection, bilateral hip normal range of motion Legs: bilateral leg non-tender, bilateral leg normal inspection, bilateral leg normal range of motion Knees: bilateral knee normal inspection, bilateral knee normal range of motion; right knee pain, right knee soft tissue tenderness, right knee other (No abrasion no erythema no palpable joint effusion no deformity) Ankles: bilateral ankle non-tender, bilateral ankle normal inspection, bilateral ankle normal range of motion Feet: bilateral foot non-tender, bilateral foot normal inspection, bilateral foot normal range of motion Neurologic/Psychiatric: alert, normal mood/affect, oriented x 3 Skin: normal color, warm/dry Progress/Results/Core Measures Results/Orders My Orders Orders - EDWARD RAMOS APRN Knee, Right, 3 Views (02/01/22 19:19) Hip, Right, 2 Views (02/01/22 19:19) Metoprolol Tartrate (Ir) Tab (Lopressor (02/01/22 19:30) Hydrocodone/Apap 5/325 Tablet (Lortab 5 (02/01/22 20:00) Medications Given in ED Current Medications Medications Dose Ordered Sig/Vance Route Start Time Stop Time Status Last Admin Dose Admin Metoprolol Tartrate 50 mg ONCE ONCE PO 02/01/22 19:30 02/01/22 19:31 DC 02/01/22 19:38 50 MG Vital Signs/I&O 02/01/22 19:08 Temp 36.0 Pulse 102 Resp 19 B/P (MAP) 199/139 (159) Pulse Ox 97 O2 Delivery Room Air Departure Impression Primary Impression: Internal derangement of right knee Disposition: 01 HOME, SELF-CARE Condition: Stable Departure-Patient Inst. Decision time for Depature: 19:49 Referrals: [facility] (PCP/Family) Primary Care Physician Patient Instructions: Internal Derangement of the Knee (DC) Add. Discharge Instructions: 1. Use the crutches as needed for pain with walking. You can bear weight on the right knee when pain allows. If you have ongoing pain next week follow-up with occupational health to discuss getting an MRI to evaluate the ligaments and the meniscus. Return to ER for any worsening. Work/School Note: Work Release Form Date Seen in the Emergency Department: Feb 01, 2022 Return to Work: Feb 04, 2022 EDWARD RAMOS APRN Feb 01, 2022 19:18
[2022-02-01] MEDS ORDERED: meTOprolol TARTRATE 50 MG (LOPRESSOR) TAB PO ONE (19:30)
--- NOTE | 2022-02-01 19:40 | Diagnostic Imaging Report ---
INDICATION: Pain, fell. COMPARISON: None. FINDINGS: Three views of the right knee joint demonstrate no acute fracture or dislocation. No focal osseous lesions are seen. No significant joint effusion is seen. The surrounding soft tissue structures are unremarkable. There are no radiopaque foreign bodies. IMPRESSION: 1. No acute fractures or dislocations of the right knee joint. Dictated by: Dictated on workstation # [id number]
--- NOTE | 2022-02-01 19:52 | Diagnostic Imaging Report ---
INDICATION: pain fell COMPARISON: None. FINDINGS: 2 views of the right hip were obtained and show no fractures, dislocations, or other acute bony abnormalities. Joint spaces are well maintained throughout. The soft tissues appear unremarkable. No unexpected radiopaque foreign bodies are identified. Note is made of somewhat prominent appearance of the lateral margins of the acetabular roof, which may be national account representative of underlying pincer deformity. IMPRESSION: 1. No acute fracture or dislocation of the right hip. 2. Probable pincer deformity. Dictated by: Dictated on workstation # [id number]
[2022-02-01] MEDS ORDERED: HYDROcodone/APAP 5 MG/325 MG (LORTAB) TAB PO ONE (20:00)
[2022-02-01 20:12] VITALS: BP 176/86
== END 2022-02-01 20:53 | disposition home or self-care (01) ==
LOC: EDUNIT# 19:07 → ER 19:08
DX: M23.91 Unspecified internal derangement of right knee (principal); Z91.14 Patient's other noncompliance with medication regimen; Z28.310 Unvaccinated for COVID-19; W01.0XXA Fall on same level from slipping, tripping and stumbling without subsequent striking against object, initial encounter
CPT/HCPCS: 73502; 73562

== ENCOUNTER → 2022-02-27 | Outpatient (CLI) | payer OTHER ==
--- NOTE | 2022-02-27 15:13 | Diagnostic Imaging Report ---
EXAMINATION: Magnetic resonance imaging of the right knee without intravenous contrast DATE: February 27, 2022. COMPARISON: Right knee radiographs February 01, 2022. INDICATION: 31-year-old female, fall. Right knee pain. Injury. TECHNIQUE: Multiplanar, multisequence non contrast enhanced MR imaging was accomplished. FINDINGS: MENISCI: The medial meniscus is intact. The lateral meniscus is intact. LIGAMENTS AND TENDONS: There is a complete tear of the anterior cruciate ligament which may be a chronic tear. The posterior cruciate ligament is diffusely increased in signal and abnormally thick. This is consistent with a sprain injury and/or mucoid degeneration. The medial collateral ligament is intact. The iliotibial band, mid third lateral capsular ligament, fibular collateral ligament, biceps femoris tendon and conjoined tendon are intact. The quadriceps tendon and patella ligament are intact. JOINT: The articular cartilage surfaces are intact. There is a small knee joint effusion. There is no identified intra-articular body or prominent synovitis. BONE: There is unremarkable bone marrow signal. Specifically, negative for fracture, osteomyelitis, osteonecrosis, or marrow replacing process. BURSAE AND SOFT TISSUES: There is a small slitlike Riley's cyst. IMPRESSION: 1. Intact menisci and cruciate ligaments. Additional ligaments and tendons are intact. 2. Complete tear of the anterior cruciate ligament which may be a chronic tear. 3. Diffusely increased signal and thickening of the posterior cruciate ligament consistent with sprain injury and/or mucoid degeneration. 4. No acute fracture or bone contusion. 5. Intact articular cartilage. Small knee joint effusion without identified intra-articular body or prominent synovitis. Dictated by: Dictated on workstation # [id number]
== END ==
LOC: RAD 12:30
PROVIDERS: ATTEND Registered Nurse Critical Care Medicine
DX: S83.511A Sprain of anterior cruciate ligament of right knee, initial encounter (principal); I10 Essential (primary) hypertension; W19.XXXA Unspecified fall, initial encounter
CPT/HCPCS: 73721